=== PATIENT | female | born 1960 | race Caucasian/White ===

== ENCOUNTER 2016-08-18 09:30 | Day surgery (SDC) | payer BC ==
[~2016-08-18 09:30] MED LIST: Pre Op ABX Message 1 EACH MISC MISCELLANE ONE
--- NOTE | 2016-08-18 10:11 | XR ---
EXAMINATION TYPE: XR KUB DATE OF EXAM: 08/18/2016 10:04 AM COMPARISON: 10/15/2015 HISTORY: Left ureteral stone TECHNIQUE: One view abdominal series FINDINGS: The osseous structures are intact. The bowel gas pattern is nonspecific. Left kidney: No calcifications Right kidney: 4 calcifications with the largest measuring 8 mm. IMPRESSION: 1. Resolution of left-sided renal calculus. 2. Right-sided nephrolithiasis
[2016-08-18] MEDS ORDERED: LACTATED RINGERS 1,000 ML IV ONE (11:00)
[2016-08-18] MEDS ORDERED: LIDOCAINE 1% 20 ML VIAL (10MG/ML) FOR IV START INTRADERMA ONE (11:02)
[2016-08-18] MEDS ORDERED: SCOPOLAMINE 1.5MG/72HR PATCH TRANSDERM ONE (11:05)
[2016-08-18] MEDS ORDERED: ONDANSETRON 4 MG/2 ML VIAL IVP ONE (11:05)
[2016-08-18] MEDS ORDERED: DEXAMETHASONE SOD PHOSPHATE 10 MG/ML 1 ML VIAL IV ONE (11:05)
[2016-08-18 11:13] LABS: Basophils % (A) 1 %; CH 32.6; CHCM 35.7; Eosinophils # (A) 0.1 k/uL (0-0.7); Eosinophils % (A) 2 %; HCT 40.8 % (34.0-46.0); HDW 3.07; HGB 14.5 gm/dL (11.4-16.0); Luc # (Auto) 0.13; Luc % (Auto) 2; Lymphocytes # (A) 2.5 k/uL (1.0-4.8); Lymphocytes % (A) 43 %; MCH 32.8 pg (25.0-35.0); MCHC 35.6 g/dL (31.0-37.0); Mean Platelet Volume 7.8; Monocytes # (A) 0.4 k/uL (0-1.0); Monocytes % (A) 7 %; Neutrophils # (A) 2.7 k/uL (1.3-7.7); Neutrophils % (A) 47 %; RBC 4.44 m/uL (3.80-5.40); WBC 5.8 k/uL (3.8-10.6); WBC (Perox) 5.47
[2016-08-18 11:23] LABS: Anion Gap 11 mmol/L; Blood Urea Nitrogen 20 mg/dL (7-17); Calcium 10.2 mg/dL (8.4-10.2); Carbon Dioxide 25 mmol/L (22-30); Chloride 109 mmol/L (98-107); Glucose 88 mg/dL (74-99); Non-African American GFR(MDRD) >60 (>60 ml/min/1.73 sqM); Sodium 145 mmol/L (137-145)
[2016-08-18] MEDS ORDERED: MIDAZOLAM 2 MG/2 ML VIAL ONE (11:47)
[2016-08-18] MEDS ORDERED: LIDOCAINE 1% INJ 10MG/ML (20 ML MDV) ONE (11:47)
[2016-08-18] MEDS ORDERED: PROPOFOL 10 MG/ML 20 ML VIAL IV ONE (11:47)
[2016-08-18] MEDS ORDERED: KETOROLAC 30 MG/ML 1 ML VIAL ONE (11:47)
[2016-08-18] MEDS ORDERED: fentaNYL (PF) 50 MCG/ML 2 ML AMP ONE (11:47)
[2016-08-18] MEDS ORDERED: SUCCINYLCHOLINE CHLORIDE 100 MG/5 ML SYR IV ONE (11:47)
[2016-08-18] MEDS ORDERED: diphenhydrAMINE 50 MG/ML 1 ML VIAL ONE (11:47)
[2016-08-18] MEDS ORDERED: SODIUM CHLORIDE 0.9% 50 ML with ceFAZolin 1,000 MG IV ONE ×2 (12:01)
[2016-08-18] MEDS ORDERED: IOHEXOL 350 MG/ML 50ML BOTTLE MISCELLANE ONE ×2 (12:07)
--- NOTE | 2016-08-18 12:43 | P.OP ---
Date of Procedure: 08/18/16 Preoperative Diagnosis: Left ureteral calculi Postoperative Diagnosis: Same Procedure(s) Performed: Cystoscopy, left retrograde pyelogram, left ureteroscopy laser lithotripsy, placement of 624 double-J catheter Estimated Blood Loss (ml): 0 Pathology: other Condition: stable (Stone) Disposition: PACU Indications for Procedure: The patient is a 55-year-old female who a month ago underwent ureteroscopy due to large impacted stones at the UPJ. These are broken up into tiny pieces. She was well postoperatively. She is asymptomatic. She came 1 month postop for an ultrasound as I was concerned of possible ureteral stricture. Hydroureteronephrosis was identified. An IVP was obtained identifying a Steinstrasse midureteral fragments she comes for stone manipulation Description of Procedure: Patient brought operating suite given general endotracheal anesthesia. She's placed lithotomy position with sterile prep and drape. KUB shows faint appearance of stones almost overlying the spine in the left mid ureteral region cystoscopy Foroblique lens and 21-Armenian sheath identifies normal urethra. The bladder mucosa unremarkable. Within a cone-tipped catheter a left retrograde Performed identifying some obstruction of the mid ureter. Through the dilated ureteral orifice I passed a 7-Armenian mini ureteroscope up to the area and there is an impacted to fragment stones. With the 200 laser probe the stone was broken into tiny fragments. I then move up proximally and break up the remaining tiny fragments and basket all the fragments out. His edema where the obstruction was. I'll thus leave a double-J catheter. I will 35 wires passed through the ureteroscope into the kidney. The ureteroscope removed and then over the wires passed a 624 double-J catheter that coils in the renal pelvis and the bladder bladder strain the cystoscope was removed the patient awake and returned recovery in good condition. She'll be discharged home upon recovery and followed office in 2 weeks for stent
--- NOTE | 2016-08-18 12:53 | FL ---
EXAMINATION TYPE: FL urography retrograde DATE OF EXAM: 08/18/2016 12:42 PM COMPARISON: NONE HISTORY: Fluoroscopy time TECHNIQUE: Fluoroscopy. FINDINGS: Fluoroscopic guidance was provided of 50 seconds. IMPRESSION: As Above.
[2016-08-18 13:24] VITALS: TEMP 97
[2016-08-18 14:53] VITALS: RESP 18
[2016-08-18 14:57] VITALS: BP 128/81
[2016-08-18 15:00] VITALS: PULSE 82
== END 2016-08-18 15:00 | disposition home or self-care (01) ==
LOC: OR 09:30
PROVIDERS: ATTEND Urology
DX: N20.2 Calculus of kidney with calculus of ureter (principal); E78.5 Hyperlipidemia, unspecified; E03.9 Hypothyroidism, unspecified; F32.9 Major depressive disorder, single episode, unspecified; F39 Unspecified mood [affective] disorder; Z79.1 Long term (current) use of non-steroidal anti-inflammatories (NSAID); Z79.52 Long term (current) use of systemic steroids; Z79.891 Long term (current) use of opiate analgesic; Z79.899 Other long term (current) drug therapy; Z88.1 Allergy status to other antibiotic agents; Z91.041 Radiographic dye allergy status; Z88.8 Allergy status to other drugs, medicaments and biological substances
CPT/HCPCS: 80048; 85025; 74000; 74420; 52356; C2625; C1758; C1769; J2250; J1200; J1100; J2405; J0690; J2001; J3010; J1885; J0330; J2704; Q9967; 82365

== ENCOUNTER → 2017-01-26 | Outpatient (CLI) | payer BC ==
[2017-01-26 12:38] LABS: Basophils % (A) 1 %; CHCM 35.3; Eosinophils # (A) 0.1 k/uL (0-0.7); Eosinophils % (A) 3 %; HCT 41.9 % (34.0-46.0); HDW 2.83; HGB 14.1 gm/dL (11.4-16.0); Luc # (Auto) 0.08; Luc % (Auto) 2; Lymphocytes # (A) 1.6 k/uL (1.0-4.8); Lymphocytes % (A) 33 %; MCH 31.6 pg (25.0-35.0); MCHC 33.7 g/dL (31.0-37.0); MCV 93.9 fL (80.0-100.0); Mean Platelet Volume 7.4; Monocytes # (A) 0.3 k/uL (0-1.0); Monocytes % (A) 6 %; Neutrophils # (A) 2.7 k/uL (1.3-7.7); Neutrophils % (A) 56 %; RBC 4.47 m/uL (3.80-5.40); RDW 13.4 % (11.5-15.5); WBC 4.8 k/uL (3.8-10.6); WBC (Perox) 4.93
[2017-01-26 12:40] LABS: ALT 40 U/L (9-52); AST 21 U/L (14-36); Alkaline Phosphatase 62 U/L (38-126); Anion Gap 11 mmol/L; Blood Urea Nitrogen 12 mg/dL (7-17); Calcium 9.9 mg/dL (8.4-10.2); Carbon Dioxide 24 mmol/L (22-30); Chloride 108 mmol/L (98-107); Glucose 84 mg/dL (74-99); Non-African American GFR(MDRD) >60 (>60 ml/min/1.73 sqM); Potassium 3.8 mmol/L (3.5-5.1); Sodium 143 mmol/L (137-145); Total Bilirubin 0.5 mg/dL (0.2-1.3); Total Protein 6.8 g/dL (6.3-8.2)
[2017-01-26 12:45] LABS: Appearance,Urine Clear (Clear); Bacteria,Urine Rare /hpf; Bilirubin,Urine Negative (Negative); Glucose,Urine (UA) Negative (Negative); Ketones,Urine Negative (Negative); Leukocyte Esterase,Urine Trace (Negative); Mucus,Urine Rare /hpf; Nitrite,Urine Negative (Negative); Particle Count 2455; Protein,Urine Negative (Negative); RBC,Urine 1 /hpf (0-5); Specific Gravity,Urine 1.012 (1.001-1.035); UA Billing (MACRO vs. MICRO) MICRO; Urobilinogen,Urine <2.0 mg/dL (<2.0); WBC,Urine 5 /hpf (0-5)
== END | disposition home or self-care (01) ==
LOC: LABPAT 11:53
PROVIDERS: ATTEND Urology
DX: Z01.812 Encounter for preprocedural laboratory examination (principal); R35.0 Frequency of micturition; R31.29 Other microscopic hematuria; E05.90 Thyrotoxicosis, unspecified without thyrotoxic crisis or storm; N39.0 Urinary tract infection, site not specified; N20.0 Calculus of kidney
CPT/HCPCS: 80053; 81001; 85025; 86850; 86900; 86901; 87086

== ENCOUNTER 2017-02-01 10:58 | Observation (INO) | payer BC ==
[2017-01-27 09:39] VITALS: BMI 23.8
[~2017-02-01 10:58] MED LIST changes: +DEXAMETHASONE SOD PHOSPHATE 10 MG/ML 1 ML VIAL IV ONE; +GENTAMICIN IN NACL ISO-OSM PMX 80 MG in SALINE 1 100ML.BAG IVPB ONE; +MIDAZOLAM 2 MG/2 ML VIAL IV PRN; +ONDANSETRON 4 MG/2 ML VIAL IVP ONE; +SCOPOLAMINE 1.5MG/72HR PATCH TRANSDERM ONE
--- NOTE | 2017-02-01 11:23 | XR ---
Abdomen HISTORY: Preop lithotripsy, kidney stones Frontal view of the abdomen correlated to prior 08/18/2016 Multiple right-sided kidney stones are stable. Bone mineralization is reduced. No bowel obstruction o r pneumoperitoneum. Bowel gas may obscure detail within the left kidney. IMPRESSION: Stable right nephrolithiasis.
[2017-02-01] MEDS: LACTATED RINGERS 1,000 ML IV SCH ×2 (11:27→11:54)
[2017-02-01] MEDS ORDERED: LIDOCAINE 1% 20 ML VIAL (10MG/ML) FOR IV START INTRADERMA ONE (11:28)
[2017-02-01] MEDS ORDERED: LIDOCAINE 1% INJ 10MG/ML (20 ML MDV) ONE (11:56)
[2017-02-01] MEDS ORDERED: SUCCINYLCHOLINE CHLORIDE 100 MG/5 ML SYR IV ONE (11:56)
[2017-02-01] MEDS ORDERED: NEOSTIGMINE 1 MG/ML 10 ML VIAL ONE (11:56)
[2017-02-01] MEDS ORDERED: MIDAZOLAM 2 MG/2 ML VIAL ONE (11:56)
[2017-02-01] MEDS ORDERED: HYDROmorphone (PF) 1 MG/ML ONE (11:56)
[2017-02-01] MEDS ORDERED: fentaNYL (PF) 50 MCG/ML 2 ML AMP ONE (11:56)
[2017-02-01] MEDS ORDERED: PROPOFOL 10 MG/ML 20 ML VIAL IV ONE (11:56)
[2017-02-01] MEDS ORDERED: ROCURONIUM BROMIDE 10 MG/ML 10 ML VIAL IV ONE (11:56)
[2017-02-01] MEDS ORDERED: GLYCOPYRROLATE 0.2 MG/ML 2 ML VIAL ONE (11:56)
[2017-02-01] MEDS ORDERED: MAG HYDROX/AL HYDROX/SIMETH 30 ML CUP PO PRN (14:04)
[2017-02-01] MEDS ORDERED: ACETAMINOPHEN TAB 325 MG TAB PO PRN (14:04)
[2017-02-01] MEDS ORDERED: ONDANSETRON 4 MG/2 ML VIAL IVP PRN (14:06)
[2017-02-01] MEDS ORDERED: NALOXONE 0.4 MG/ML 1 ML VIAL IV PRN (14:06)
[2017-02-01] MEDS ORDERED: HYDROmorphone PCA 5 MG/25 ML SYRINGE IV PRN (14:06)
--- NOTE | 2017-02-01 14:14 | P.OP ---
Preoperative Diagnosis: Painful right renal calculi Postoperative Diagnosis: Procedure(s) Performed: Same Implants: Anesthesia: GETA Surgeon: Nirmal Lau Estimated Blood Loss (ml): 50 Pathology: other (Stone) Condition: stable Disposition: PACU Indications for Procedure: The patient is a 56-year-old female with active kidney stone disease despite medical therapy. She is stones in the right kidney that are causing her pain and an she wasn't liberated of these with shockwave lithotripsy. We discussed ureteroscopy versus percutaneous nephrostolithotomy. I felt the latter would be more appropriate given the volume of stones. Operative Findings: Description of Procedure: Patient is brought to the operating suite and given general anesthesia. She's placed in a frog position with a sterile prep and drape. Cystoscopy Foroblique lens and 22-Guinean sheath identifies a normal urethra. The right ureteral orifice is identified and intubated with a 5-Guinean occluding balloon catheter. It is secured to a urethral Bernstein The patient's placed in prone position. Dr. Truong of radiology enters the procedure. After doing a retrograde decide to go after middle pole calyx. Pass to the middle pole calyx and dilated to 30-Guinean. I clear out the clot. I remove several small stones from inside of the kidney. The larger stones on the lower pole calyx. With great difficulty I'm able to finally access the lower pole calyx. I see one stone and break it up and remove it. There are 3 other stones. I see a second stone but I'm unable to access it due to angulation. There are 2 other calcifications that may be behind the renal papilla. I have Dr. Truong attempt to access directly the stones but were unable to do so. I elected terminate the procedure. A 20-Guinean reentry nephrostomy tube was placed so that I can look in the collecting system later this week or early next week for a secondary nephroscopy and possible nephrosto lithotomy. Blood loss is 50 mL.
[2017-02-01] MEDS: HYDROmorphone 1 MG/ML 1 ML SYRINGE IVP PRN ×4 (14:20→14:39)
[2017-02-01] MEDS: KETOROLAC 30 MG/ML 1 ML VIAL IVP SCH ×2 (14:26→23:16)
--- NOTE | 2017-02-01 14:29 | FL ---
EXAMINATION TYPE: FL Perc Nephrostomy New Access DATE OF EXAM: 02/01/2017 COMPARISON: NONE HISTORY: Right-sided kidney stones PROCEDURE: Maximal barrier technique was utilized. The skin overlying the right kidney was localized using fluo roscopy and the overlying skin prepped and draped. Lidocaine used for local anesthesia. Skin shelbi w as made with a scalpel. Access was gained under fluoroscopy, following placement of a ureteral occlu alex balloon by the referring clinician and instillation of air in the renal collecting system with a 21-gauge needle to the kidney. A suitable posterior calyx was chosen. A 0.018 inch wire was Combined Effort. The access site was dilated and subsequently a sheath was advanced into the renal pelvis follow ing dilation with balloon along the tract. The patient underwent nephrolithotomy by the referring maya jeter. I was called back to the operating room for a new access. Using similar technique, attempts w ere made to access the lower pole renal calcification. 4 passes were performed without access to the collecting system and the exam was aborted. The patient remained in stable condition without complica tion. The patient was discharged to observation. IMPRESSION: STATUS POST NEPHROSTOMY PLACEMENT FOR NEPHROLITHOTOMY WITH FLUOROSCOPIC GUIDANCE. THIS PROCEDURE PER FORMED BY THE UNDERSIGNED.
[2017-02-01] MEDS: DEXTROSE 5%-0.45% NACL 1,000 ML IV SCH (16:22)
[2017-02-01] MEDS: diphenhydrAMINE 50 MG/ML 1 ML VIAL IVP PRN (18:53)
[2017-02-01] MEDS ORDERED: NON-FORMULARY DRUG (Simvastatin [Simvastatin] 20 MG) PO SCH (21:00)
[2017-02-01] MEDS ORDERED: POTASSIUM CITRATE 10 MEQ TABLET.ER PO SCH (21:00)
[2017-02-02] MEDS: KETOROLAC 30 MG/ML 1 ML VIAL IVP SCH ×2 (06:00→17:18)
[2017-02-02] MEDS: diphenhydrAMINE 50 MG/ML 1 ML VIAL IVP PRN (06:05)
[2017-02-02] MEDS ORDERED: LEVOTHYROXINE 100 MCG TAB PO SCH (06:30)
[2017-02-02] MEDS: DEXTROSE 5%-0.45% NACL 1,000 ML IV SCH (08:47)
[2017-02-02] MEDS ORDERED: PARoxetine 20 MG TAB PO SCH (09:00)
[2017-02-02] MEDS ORDERED: MORPHINE SULFATE 2 MG/ML SYRINGE IVP PRN (10:26)
--- NOTE | 2017-02-02 10:30 | P.PN ---
Subjective The patient is status post right percutaneous nephrostolithotomy. She did well overnight. She is a little groggy from the pain medicine. We'll discontinue the BOOK CRITIC. She'll ambulate. If she feels well she can be discharged home later today. She needs a secondary nephroscopy which I will arrange for on Tuesday. Objective - Vital Signs Vital signs: Vital Signs Temp 99 F 02/02/17 07:00 Pulse 98 02/02/17 07:00 Resp 16 02/02/17 07:00 BP 125/70 02/02/17 07:00 Pulse Ox 98 02/02/17 08:31 Intake & Output 02/01/17 02/02/17 02/02/17 18:59 06:59 18:59 Intake Total 950 580 240 Output Total 360 700 Balance 590 -120 240 Weight 58.967 kg Intake: IV 950 Oral 580 240 Output: Drainage 380 Right flank 380 Urine 350 320 Uretheral (Bernstein) 70 Estimated Blood Loss 10 Other: Voiding Method Indwelling Catheter Indwelling Catheter
--- NOTE | 2017-02-02 10:32 | P.DS ---
Providers Date of admission: 02/01/17 19:22 Attending physician: Nirmal Lau Primary care physician: Michael [facility] Course: The patient underwent a right percutaneous nephrostolithotomy 02-01-17. She did well overnight. She is afebrile stable vital signs. Her activity is limited. Her diet will be regular. She will have arrangements for her procedure. This will be a secondary nephroscopy on 02/04/2017 she'll be discharged with a nephrostomy tube she'll be given a prescription of Pierce. She will have limited activity and a regular diet. I'll make arrangements for the follow-up. Patient Condition at Discharge: Good Plan - Discharge Summary New Discharge Prescriptions: New HYDROcodone/APAP 5-325MG [Pierce 5-325] 1 tab PO Q4HR PRN #20 tab PRN Reason: Pain Control No Action Simvastatin [Simvastatin] 20 mg PO HS PARoxetine [Paxil] 20 mg PO QAM Potassium Citrate [Potassium Citrate ER] 10 meq PO HS Melatonin 5 mg PO HS PRN PRN Reason: Insomnia Ibuprofen [Motrin] 400 mg PO Q8HR PRN PRN Reason: Pain Acetaminophen-Codeine 300-30mg [Tylenol #3] 1 tab PO Q4H PRN PRN Reason: Moderate To Severe Pain Acetaminophen [Tylenol] 650 mg PO Q6H PRN PRN Reason: Mild To Moderate Pain Levothyroxine Sodium [Synthroid] 100 mcg PO DAILY Discharge Medication List PARoxetine [Paxil] 20 mg PO QAM 01/22/15 [History] Simvastatin [Simvastatin] 20 mg PO HS 01/22/15 [History] Ibuprofen [Motrin] 400 mg PO Q8HR PRN 01/27/17 [History] Melatonin 5 mg PO HS PRN 01/27/17 [History] Potassium Citrate [Potassium Citrate ER] 10 meq PO HS 01/27/17 [History] Acetaminophen [Tylenol] 650 mg PO Q6H PRN 02/01/17 [History] Acetaminophen-Codeine 300-30mg [Tylenol #3] 1 tab PO Q4H PRN 02/01/17 [History] Levothyroxine Sodium [Synthroid] 100 mcg PO DAILY 02/01/17 [History] HYDROcodone/APAP 5-325MG [Pierce 5-325] 1 tab PO Q4HR PRN #20 tab 02/02/17 [Rx] Activity/Diet/Wound Care/Special Instructions: Home with nephrostomy tube. I'll make arrangements for a secondary nephroscopy here probably on Tuesday. Discharge Disposition: HOME SELF-CARE
[2017-02-02] MEDS: HYDROcodone/APAP 5-325MG 1 EACH TAB PO PRN ×2 (12:54→16:32)
[2017-02-02 16:21] VITALS: BP 124/77; PULSE 77; RESP 20; TEMP 98.4
--- NOTE | 2017-02-08 17:25 | CDI ---
Documentation Clarification OP Dear Dr Lau, Please provide clarification regarding the size of the renal stones that you were able to break up and remove. Please respond to this query by dictating an addendum to your procedure note. Thank you for your assistance Katalina Goldsmith If you have any questions, please contact [employer], Desiree Mtz at . [facility]
--- NOTE | 2017-02-22 19:36 | CDI ---
Documentation Clarification OP Dear Dr Lau, Please provide clarification regarding the size of the renal stones (Up to 2cm, or over 2cm) that you were able to break up and remove. Please respond to this query by dictating an addendum to your procedure note. Thank you for your assistance Katalina Goldsmith If you have any questions, please contact [employer], Desiree Mtz at [phone]. [facility]
--- NOTE | 2017-03-01 19:56 | CDI ---
Dear Dr Lau, I am unable to code this procedure without the size of the stones that were removed. Please provide clarification regarding the size of the renal stones ( Up to 2cm, or over 2cm) that you were able to break up and remove. This is the THIRD QUERY for the size of the renal stones. Please respond to this query by dictating an addendum to your procedure note. Thank you for your assistance Katalina Goldsmith If you have any questions, please contact Wares Sorter, Desiree Mtz at . [facility]
--- NOTE | 2017-04-04 21:46 | P.PN ---
Progress Note - Text addendum: This ptient came for pcnl right 02/02/2017 for 2 cm worth of renal stones too voluminous for eswl
== END 2017-02-02 17:42 | disposition home or self-care (01) ==
LOC: OR 10:58 → 6PED 13:35 → OR 19:22
PROVIDERS: ADMIT Urology; ATTEND Urology
DX: N20.0 Calculus of kidney (principal); E78.5 Hyperlipidemia, unspecified; E03.9 Hypothyroidism, unspecified; F32.9 Major depressive disorder, single episode, unspecified; Z88.0 Allergy status to penicillin; Z79.899 Other long term (current) drug therapy
CPT/HCPCS: 94760 ×2; 94762; 82365; 74000; 50432; 50080; G0378 ×2; C1769 ×6; C2628; C1894; J1580; J2250; J1200 ×2; J1100; J2710; J2405; J2001; J3010; J1885 ×2; J1170 ×2; J0330; J2704; 86850; 86900; 86901

== ENCOUNTER 2017-02-04 07:03 | Inpatient (IN) | payer BC ==
[2017-02-03 12:17] VITALS: BMI 23.8
[~2017-02-04 07:03] MED LIST changes: +LACTATED RINGERS 1,000 ML IV SCH; +LIDOCAINE 1% 20 ML VIAL (10MG/ML) FOR IV START INTRADERMA PRN; -Pre Op ABX Message 1 EACH MISC MISCELLANE ONE
[2017-02-04] MEDS ORDERED: ePHEDrine SULFATE/0.9% NACL/PF 50 MG/5 ML SYRINGE IV ONE (07:25)
[2017-02-04] MEDS ORDERED: SUCCINYLCHOLINE CHLORIDE 100 MG/5 ML SYR IV ONE (07:25)
[2017-02-04] MEDS ORDERED: LIDOCAINE 1% INJ 10MG/ML (20 ML MDV) ONE (07:25)
[2017-02-04] MEDS ORDERED: PROPOFOL 10 MG/ML 20 ML VIAL IV ONE (07:25)
[2017-02-04] MEDS ORDERED: fentaNYL (PF) 50 MCG/ML 2 ML AMP ONE (07:25)
[2017-02-04] MEDS ORDERED: MIDAZOLAM 2 MG/2 ML VIAL ONE (07:25)
[2017-02-04] MEDS ORDERED: GLYCOPYRROLATE 0.2 MG/ML 2 ML VIAL ONE (07:25)
[2017-02-04] MEDS ORDERED: ROCURONIUM BROMIDE 10 MG/ML 10 ML VIAL IV ONE (07:25)
[2017-02-04] MEDS ORDERED: NEOSTIGMINE 1 MG/ML 10 ML VIAL ONE (07:25)
[2017-02-04] MEDS ORDERED: IOHEXOL 300 MG/ML 50 ML BOTTLE INJ ONE (07:43)
--- NOTE | 2017-02-04 08:35 | P.OP ---
Date of Procedure: 02/04/17 Preoperative Diagnosis: Right renal calculi Postoperative Diagnosis: Same Procedure(s) Performed: Secondary nephroscopy, secondary nephrostolithotomy laser, placement of antegrade 6 x 26 double-J catheter Implants: Anesthesia: JAYLANA Surgeon: Nirmal Lau Estimated Blood Loss (ml): 50 Pathology: other (Stone) Condition: stable Disposition: PACU Indications for Procedure: The patient is 56. She has painful right renal calculi. She underwent a percutaneous nephrostolithotomy earlier this week. There are some small retained stones that I wanted do a second look nephroscopy Operative Findings: Description of Procedure: The patient is brought to the operating suite. She is given a general endotracheal anesthesia. A Bernstein cath placed sterilely. She's placed in a prone position with care to airways and extremities on the operating table. She is prepped and draped sterilely. Through the nephrostomy tube I passed an 035 wire into the distal ureter. I removed the nephrostomy tube and passed the flexible nephroscope into the collecting system. I go to the lower pole calyces where the stone fragments are remaining. I see the 2 calyces of stone. There are too large to pull out of the impacted infundibula. With a 3 and 65 laser probe I fracture the stone into tiny pieces and basket or flush them out of the calyces. At the end of the procedure there no significant remaining fragments. There is one stone that is behind the renal papilla that I cannot access. She has some bleeding and because of the fragments that she may have to pass I'll place an antegrade stent. Over the wire and a 6 x 26 stent is passed into the bladder and coils in the renal pelvis. Wires removed. The wound is dressed the patient's awake and returned recovery in good condition. She'll be discharged home upon recovery and found the office next week for stent removal. End of dictation
--- NOTE | 2017-02-04 09:08 | FL ---
EXAMINATION TYPE: FL Perc Nephro Tube Change DATE OF EXAM: 02/04/2017 COMPARISON: NONE HISTORY: Lower procedure TECHNIQUE: Fluoroscopy. FINDINGS: Fluoroscopic guidance was provided with 131 seconds of fluoroscopy provided. IMPRESSION: As Above.
[2017-02-04] MEDS ORDERED: LACTATED RINGERS 1,000 ML IV ONE ×4 (09:10→13:55)
[2017-02-04] MEDS ORDERED: LEVALBUTEROL NEB 1.25 MG/3 ML AMP INHALATION ONE (09:12)
[2017-02-04] MEDS: HYDROmorphone 1 MG/ML 1 ML SYRINGE IVP PRN ×4 (09:19→15:01)
--- NOTE | 2017-02-04 09:37 | XR ---
EXAMINATION TYPE: XR chest 1V portable DATE OF EXAM: 02/04/2017 COMPARISON: 01/22/2015. HISTORY: Postop percutaneous nephrostomy. TECHNIQUE: Single frontal view of the chest is obtained. FINDINGS: There is complete opacification of the right hemithorax with mediastinal shift to the left . Mass effect excludes right lung atelectasis. Right pleural effusion or large hemothorax are conside rations. Partially obscured cardiac silhouette is not enlarged. Left lung remains clear although there is blun ting of the left costophrenic angle, likely relating to a trace pleural effusion. Patient's chin obsc ures the lung apices. Osseous structures appear intact. Right nephrostomy tube is partially visualize d. Prominent loop of bowel is seen within the upper abdomen, likely postop ileus. IMPRESSION: 1. Interval complete opacification of the right hemithorax with leftward mediastinal shift. Findings are suspicious for space occupying large pleural effusion or hemothorax. 2. Probable trace left pleural effusion, postop ileus, and partially visualized right nephrostomy tub e.
--- NOTE | 2017-02-04 10:34 | US ---
EXAMINATION TYPE: US chest DATE OF EXAM: 02/04/2017 COMPARISON: NONE CLINICAL HISTORY: R/O HYDROTHORAX RIGHT. EXAM MEASUREMENTS: Right lateral chest scanned in recovery post surgery in the presence of Dr. Rodriguez. Unable to scan post erior due to bandaging. Dr Rodriguez wanted documentation of fluid. IMPRESSIONS: Markedly limited exam. Technologist noted that due to bandaging she could not obtain acc ess to the majority of the right chest.
[2017-02-04] MEDS ORDERED: MORPHINE SULFATE 2 MG/ML SYRINGE IV PRN (12:02)
[2017-02-04] MEDS ORDERED: ONDANSETRON 4 MG/2 ML VIAL IVP PRN (12:04)
--- NOTE | 2017-02-04 12:07 | P.PN ---
Progress Note - Text Postoperatively the patient developed shortness of breath and tachycardia. Her O2 sats were low. A chest x-ray was a obtained by anesthesia identifying a large right hydrothorax. I suspect that the percutaneous nephrostomy tube had neck the pleura when it was placed on Tuesday. How much fluid she had at that point time is indeterminate. However today I suspect more fluid was introduced into the pleura during the procedure to remove the remaining stone. She needs a chest tube to drain the fluid. She does have a double-J catheter in. Thoracic surgery will place this tube this morning. Be admitted the hospital until this problem has resolved. The double-J catheter remain until he also has resolved.
[2017-02-04] MEDS ORDERED: MIDAZOLAM 2 MG/2 ML VIAL IVP ONE ×2 (12:32→13:09)
[2017-02-04] MEDS: fentaNYL (PF) 50 MCG/ML 2 ML AMP IVP ONE ×2 (12:32→13:09)
--- NOTE | 2017-02-04 13:07 | XR ---
EXAMINATION TYPE: XR chest 1V portable DATE OF EXAM: 02/04/2017 COMPARISON: 02/04/2017 at 9:15 AM HISTORY: Status post right thoracostomy tube placement. TECHNIQUE: Single frontal view of the chest is obtained. FINDINGS: There is redemonstration of complete opacification of the right hemithorax with mediastina l shift to the left. Thoracostomy tube has been inserted in the interim with its distal tip overlying the mid right peripheral lung. Probable trace left pleural effusion is seen as blunting of the left costophrenic angle is present. Remainder the left lung is clear. There is again partial visualization of a right-sided nephrostomy tube. IMPRESSION: Redemonstration of complete opacification of the right hemithorax with mediastinal shift to the left. Sonography is limited in the evaluation of hydropneumothorax.
--- NOTE | 2017-02-04 13:36 | XR ---
EXAMINATION TYPE: XR chest 1V portable DATE OF EXAM: 02/04/2017 HISTORY: Right-sided chest tube placement COMPARISON: 02/04/2017 TECHNIQUE: Single view of the chest is submitted. FINDINGS: Right basilar chest tube is in place. Dramatic improvement in opacification of the right hemithorax w ith significant diminution in right-sided pleural fluid. Persistent pleural fluid and right basilar a telectasis and/or infiltrate. Mild left basilar atelectasis. No sizable pneumothorax. Cardiomediastinal silhouette is unremarkable. IMPRESSION: 1. Right basilar chest tube with dramatic improvement in right-sided pleural effusion and volume los s.
[2017-02-04 13:41] LABS: CH 32.8; CHCM 34.4; HCT 31.9 % (34.0-46.0); HDW 2.87; MCH 33.3 pg (25.0-35.0); MCHC 34.7 g/dL (31.0-37.0); MCV 95.8 fL (80.0-100.0); Mean Platelet Volume 8.4; RBC 3.33 m/uL (3.80-5.40); RDW 13.1 % (11.5-15.5); WBC 6.7 k/uL (3.8-10.6)
[2017-02-04 13:50] LABS: HGB 11.1 gm/dL (11.4-16.0)
[2017-02-04] MEDS: HYDROcodone/APAP 5-325MG 1 EACH TAB PO PRN ×2 (17:29→21:42)
[2017-02-04] MEDS: LEVOFLOXACIN 500 MG TAB PO SCH (17:29)
[2017-02-04] MEDS: DEXTROSE 5%-0.45% NACL 1,000 ML IV SCH (17:30)
[2017-02-04] MEDS ORDERED: NON-FORMULARY DRUG (Simvastatin [Simvastatin] 20 MG) PO SCH (21:00)
[2017-02-04] MEDS: ACETAMINOPHEN TAB 325 MG TAB PO PRN (22:13)
[2017-02-05] MEDS: HYDROcodone/APAP 5-325MG 1 EACH TAB PO PRN ×6 (01:59→23:10)
[2017-02-05] MEDS: DEXTROSE 5%-0.45% NACL 1,000 ML IV SCH ×2 (04:03→05:48)
[2017-02-05 05:32] VITALS: RESP 18
[2017-02-05] MEDS: ACETAMINOPHEN TAB 325 MG TAB PO PRN (05:46)
[2017-02-05] MEDS: LEVOTHYROXINE 100 MCG TAB PO SCH (05:48)
--- NOTE | 2017-02-05 07:24 | XR ---
EXAMINATION TYPE: XR chest 1V portable DATE OF EXAM: 02/05/2017 COMPARISON: NONE HISTORY: Chest tube placement TECHNIQUE: Single frontal view of the chest is obtained. FINDINGS: There is right-sided consolidation and small effusion with chest tube tiny left effusion a lso seen. Very tiny right apical pneumothorax measuring less than 5%. Heart size is within normal ahuja its. IMPRESSION: 1. Bilateral small effusion and basilar infiltrate with tiny right apical pneumothorax measuring less than 5%.
[2017-02-05] MEDS: PARoxetine 20 MG TAB PO SCH (08:24)
--- NOTE | 2017-02-05 10:55 | P.PN ---
Subjective Principal diagnosis: Right renal calculi, postoperative right hydrothorax, hyperlipidemia, hypothyroid, history of depression, history of bronchitis, and a history of migraine headaches. This is a 56-year-old female patient who was admitted for treatment of right renal calculi by Dr. Lyles. Patient underwent a secondary nephroscopy, secondary nephrolithotomy laser, and placement of antegrade 6 x 26 double-J catheter. subsequently the patient developed a right hydrothorax postoperatively and a right thoracostomy tube was placed by Dr. Shin. S/P day #1 placement of right thoracostomy tube. Patient is sitting up to bedside, no acute distress. Her sister is present at the bedside. Complaining of pain 4 out of 10 on the pain scale to her chest tube insertion site. She is complaining of itching all over her body. Denies rash. Objective - Vital Signs Vital signs: Vital Signs Temp 97.3 F L 02/05/17 08:26 Pulse 87 02/05/17 08:26 Resp 18 02/05/17 08:26 BP 119/67 02/05/17 08:26 Pulse Ox 99 02/05/17 08:26 Intake & Output 02/04/17 02/05/17 02/05/17 18:59 06:59 18:59 Intake Total 2300 375 75 Output Total 1050 1240 15 Balance 1250 -865 60 Weight 63.5 kg Intake: IV 2300 375 75 Dextrose 5%-0.45% NaCl 1, 375 75 000 ml @ 75 mls/hr IV . [id number] [facility] Rx#:[id number] Output: Chest Tube Drainage 140 15 Chest Tube Right Lateral 140 15 Chest Urine 1000 1100 Uretheral (Bernstein) 1100 Estimated Blood Loss 50 Other: Voiding Method Indwelling Catheter Indwelling Catheter Indwelling Catheter # Voids 0 - Constitutional General appearance: Present: cooperative, no acute distress, thin - EENT Eyes: Present: PERRLA, normal appearance ENT: Present: hearing grossly normal - Neck Details: No JVD present, no lymphadenopathy. - Respiratory Details: Essentially clear throughout, diminished bilateral bases. Respirations are symmetrical and unlabored. Oxygen saturations are 97% on 3 L nasal cannula. Right chest tube remains in place, no air leak present. 0 drainage in the last 8 hours. 1200 mL output in 24 hours of thin serosanguineous drainage. Remains to low continuous wall suction -20 cm. - Cardiovascular Details: Regular rhythm and rate. S1 and S2 present, negative for S3, gallop or murmur. Remote telemetry showing normal sinus rhythm heart rate 78. Sequential compression devices in place to bilateral lower extremities. - Gastrointestinal Gastrointestinal Comment(s): Abdomen is soft, nontender and nondistended. Positive bowel sounds to all 4 abdominal quadrants. Passing flatus. No guarding, no organomegaly. - Genitourinary Genitourinary Comment(s): Clear malik urine, adequate urine output. Bernstein catheter for accurate I&O. - Integumentary Integumentary Comment(s): No cyanosis, no rash. Integumentary: Present: normal, normal turgor - Neurologic Neurologic Comment(s): No focal deficits. Neurologic: Present: CNII-XII intact - Musculoskeletal Musculoskeletal: Present: strength equal bilaterally - Psychiatric Psychiatric: Present: A&O x's 3, appropriate affect, intact judgment & insight - Allied health notes Allied health notes reviewed: nursing - Labs CBC & Chem 7: 02/04/17 13:28 Labs: Abnormal Lab Results - Last 24 Hours (Table) 02/04/17 Range/Units 13:28 RBC 3.33 L (3.80-5.40) m/uL Hgb 11.1 L D (11.4-16.0) gm/dL Hct 31.9 L (34.0-46.0) % - Imaging and Cardiology Chest x-ray: report reviewed, image reviewed Assessment and Plan (1) History of depression Status: Acute (2) Hypothyroid Status: Acute (3) Hyperlipidemia Status: Acute (4) History of bronchitis Status: Acute (5) Renal calculus, right Status: Acute Plan: 1. Her right chest tube will be removed today. Repeat chest x-ray post chest tube removal. 2. Encourage use of her incentive spirometry every hour while awake. 3. DVT and GI prophylaxis. 4. Medical management recommendations per Dr. Lau. 5. Further recommendations as patient progresses. Time with Patient: Greater than 30
--- NOTE | 2017-02-05 11:52 | P.PN ---
Subjective Principal diagnosis: POD #1, S/P Right PCNL. The patient states that she is comfortable at rest, but experiences increased discomfort with deep respirations or movement. Objective - Vital Signs Vital signs: Vital Signs Temp 97.3 F L 02/05/17 08:26 Pulse 87 02/05/17 08:26 Resp 18 02/05/17 08:26 BP 119/67 02/05/17 08:26 Pulse Ox 99 02/05/17 08:26 Intake & Output 02/04/17 02/05/17 02/05/17 18:59 06:59 18:59 Intake Total 2300 375 75 Output Total 1050 1240 715 Balance 1250 -865 -640 Weight 63.5 kg Intake: IV 2300 375 75 Dextrose 5%-0.45% NaCl 1, 375 75 000 ml @ 75 mls/hr IV . [id number] [facility] Rx#:[id number] Output: Chest Tube Drainage 140 15 Chest Tube Right Lateral 140 15 Chest Urine 1000 1100 700 Uretheral (Bernstein) 1100 700 Estimated Blood Loss 50 Other: Voiding Method Indwelling Catheter Indwelling Catheter Indwelling Catheter # Voids 0 - Constitutional General appearance: Present: cooperative, no acute distress - Gastrointestinal Gastrointestinal Comment(s): Nephrostomy site dressing intact. General gastrointestinal: Present: soft. Absent: distended, tenderness - Psychiatric Psychiatric: Present: A&O x's 3, appropriate affect, intact judgment & insight - Labs CBC & Chem 7: 02/04/17 13:28 Labs: Abnormal Lab Results - Last 24 Hours (Table) 02/04/17 Range/Units 13:28 RBC 3.33 L (3.80-5.40) m/uL Hgb 11.1 L D (11.4-16.0) gm/dL Hct 31.9 L (34.0-46.0) % Assessment and Plan Plan: The patient was febrile overnight but is currently afebrile. I suspect the fever is due to atelectasis. The Bernstein catheter will be removed, as the urine is clear. She was advised to increase ambulation.
--- NOTE | 2017-02-05 12:12 | P.GSCN ---
<Zachary Tate - Last Filed: 02/05/17 11:51> History of Present Illness Consult date: 02/04/17 Reason for Consult: Right hydrothorax Requesting physician: Nirmal Lau History of present illness: This a 56-year-old female patient who is followed by Dr. Michael Solorzano an outpatient basis. She is a past medical history of right renal calculi, hyperlipidemia, hypothyroidism, history of depression, migraine headaches and history of bronchitis. On 02/01/2017 the patient came into [facility] and underwent an outpatient percutaneous nephrolithotomy performed by Dr. Lau. Subsequently she came into the hospital today and underwent a secondary nephroscopy, secondary nephrolithotomy laser, placement of antegrade 6 x 26 double-J catheter performed by Dr. Lau. Postoperatively the patient developed some shortness of breath and tachycardia. Subsequently a chest x-ray was completed and demonstrated a large right hydrothorax. Dr. Shin from cardiothoracic surgery was asked to see the patient for placement of right thoracostomy tube. Review of Systems 14 point review of systems was completed and was negative except for as mentioned in HPI. Past Medical History Past Medical History: Hyperlipidemia, Liver Disease, Respiratory Disorder ( History of bronchitis), Thyroid Disorder (Hypothyroid) Additional Past Medical History / Comment(s): KIDNEY STONES, FATTY LIVER, HISTORY OF MIGRAINE HEADACHES. History of Any Multi-Drug Resistant Organisms: None Reported Past Surgical History: Hysterectomy, Tonsillectomy Additional Past Surgical History / Comment(s): RIGHT OOPHORECTOMY, MULTIPLE LITHOTRIPSY'S. 02/01/2017 Nephrostolithotomy w/nephrostomy tube insertion Past Anesthesia/Blood Transfusion Reactions: Motion Sickness, Postoperative Nausea & Vomiting (PONV) Past Psychological History: Depression (Takes Paxil at home.) Smoking Status: Never smoker Past Alcohol Use History: Occasional Past Drug Use History: None Reported - Past Family History Sister(s) Family Medical History: Cancer (1 sister from a brain tumor, 1 sister is in remission from breast cancer.) Additional Family Medical History / Comment(s): 2 sisters and 1 brother with history of EtOH. Mother Family Medical History: Cancer (History of breast cancer.), Coronary Artery Disease (CAD) (Her mother underwent a coronary artery bypass grafting surgery and at age 58.) Father Family Medical History: Coronary Artery Disease (CAD) (Father at age 52.) Brother(s) Additional Family Medical History / Comment(s): Brother had a history of depression, EtOH and drug abuse and committed suicide at a young age. Medications and Allergies Home Medications Medication Instructions Recorded Confirmed Type PARoxetine [Paxil] 20 mg PO QAM 01/22/15 02/04/17 History Simvastatin [Simvastatin] 20 mg PO HS 01/22/15 02/04/17 History Melatonin 5 mg PO HS PRN 01/27/17 02/04/17 History Potassium Citrate [Potassium 10 meq PO HS 01/27/17 02/04/17 History Citrate ER] Levothyroxine Sodium [Synthroid] 100 mcg PO DAILY 02/01/17 02/04/17 History Allergies Allergy/AdvReac Type Severity Reaction Status Date / Time amoxicillin Allergy Rash/Hives Verified 02/04/17 16:49 iodine Allergy Rash/Hives Verified 02/04/17 16:49 atorvastatin calcium AdvReac ACHY Verified 02/04/17 16:49 [From Lipitor] MUSCLES. Surgical - Exam Vital Signs Temp Pulse Resp BP Pulse Ox 98.1 F 83 16 186/69 98 02/04/17 07:10 02/04/17 07:10 02/04/17 07:10 02/04/17 07:10 02/04/17 07:10 - General well developed, well nourished, no distress, moderate pain - Eyes PERRL, normal ocular movement - ENT normal pinna, normal nares, normal mucosa, no congestion - Neck No JVD present, no lymphadenopathy. no masses, no bruits, trachea midline, no venous distension - Respiratory Lungs sounds are clear throughout, diminished her right lower lobe. Respirations are symmetrical and unlabored. She has a right thoracostomy tube and placed draining thin serosanguineous drainage. 1200 mL evacuated with chest tube placement. Her chest tube is too low continuous wall suction -20 cm. Oxygen saturation are 100% on 10 L VENTI mask. - Cardiovascular Regular rhythm and tachycardic rate. S1 and S2 present, need for S3, gallop or murmur. Bedside telemetry showing sinus tachycardia heart rate 112. No edema present. - Abdomen Soft, nontender and nondistended. Active bowel sounds 4 abdominal quadrants. No guarding, no organomegaly. - Genitourinary Adequate urine output. Clear malik urine. Bernstein catheter for accurate I&O. - Rectum Deferred - Integumentary There is a dressing clean and dry and intact to her right flank. Scant serosanguineous drainage to her dressing. no rash, no growths, no abnormal pigmentation - Neurologic She is sedated with Versed and fentanyl at this time. She is moving all 4 extremities appropriately. - Psychiatric oriented to time, oriented to person, oriented to place, speech is normal, memory intact, other (She is alert and orientated 3 prior to sedation.) Results - Labs 02/04/17 13:28 Abnormal Lab Results - Last 24 Hours (Table) 02/04/17 Range/Units 13:28 RBC 3.33 L (3.80-5.40) m/uL Hgb 11.1 L D (11.4-16.0) gm/dL Hct 31.9 L (34.0-46.0) % - Imaging Chest x-ray: report reviewed, image reviewed Assessment and Plan (1) History of depression Status: Acute (2) Hypothyroid Status: Acute (3) Hyperlipidemia Status: Acute (4) History of bronchitis Status: Acute (5) Renal calculus, right Status: Acute Plan: The patient was seen and examined with Dr. Shin. Chart and diagnostics were reviewed. A right thoracostomy tube will be placed by Dr. Shin, for a right hydrothorax. Her chest tube be placed to low continuous wall suction -20 cm. Incentive spirometry will be ordered every hour while awake. DVT and GI prophylaxis in place. Sequential compression devices in place to bilateral lower extremities. Medical management per Dr. Lau's recommendations. Thank you Dr. Mauricio for this consult and we look forward to working with you in the care of your patient. Time with Patient: Greater than 30 <Miguel Shin - Last Filed: 02/09/17 10:34> Surgical - Exam Vital Signs Temp Pulse Resp BP Pulse Ox 98.1 F 83 16 186/69 98 02/04/17 07:10 02/04/17 07:10 02/04/17 07:10 02/04/17 07:10 02/04/17 07:10 Results - Labs 02/04/17 13:28 Assessment and Plan Plan: The patient was seen and examined. I agree with the above assessment and plan. The patient underwent a procedure by Dr. Lau earlier today. Her follow-up chest x-ray reveals a large right-sided pleural effusion. Placement of a chest tube was recommended. The risks, benefits, and alternatives to this procedure were discussed with the patient. All of her questions were answered. We will plan on placing this chest tube in the recovery room today.
--- NOTE | 2017-02-05 14:08 | XR ---
EXAMINATION TYPE: XR chest 2V DATE OF EXAM: 02/05/2017 COMPARISON: NONE INDICATION: Chest tube removal TECHNIQUE: Frontal and lateral views of the chest are obtained. FINDINGS: The heart size is normal. The pulmonary vasculature is normal. There is a right basilar infiltrate. Correlate for pneumonia. Atelectasis could be considered. No res idual pneumothorax is evident. Minimal left pleural effusion may be present. IMPRESSION: 1. No pneumothorax post left chest tube removal. 2. Development of a left basilar infiltrate or consolidation. Correlate for atelectasis. Pneumonia sh ould be considered. Follow-up is recommended. 3. Small left pleural effusion
[2017-02-05] MEDS: LEVOFLOXACIN 500 MG TAB PO SCH (17:02)
[2017-02-05] MEDS ORDERED: diphenhydrAMINE 25 MG CAP PO PRN (18:47)
[2017-02-06] MEDS: LEVOTHYROXINE 100 MCG TAB PO SCH (06:26)
[2017-02-06] MEDS: PARoxetine 20 MG TAB PO SCH (07:41)
[2017-02-06] MEDS: HYDROcodone/APAP 5-325MG 1 EACH TAB PO PRN ×2 (07:42→11:11)
[2017-02-06 07:46] VITALS: BP 117/76; PULSE 72; TEMP 97.9
--- NOTE | 2017-02-06 08:20 | XR ---
EXAMINATION TYPE: XR chest 1V portable DATE OF EXAM: 02/06/2017 COMPARISON: 02/05/2017 HISTORY: Chest tube removal TECHNIQUE: Single frontal view of the chest is obtained. FINDINGS: Small bilateral effusions and consolidation. Less than 5% stable. Heart size stable. No in terstitial edema. IMPRESSION: 1. Less than 5% right apical pneumothorax with small bilateral effusions and basilar infiltrate alyssa garnica
--- NOTE | 2017-02-06 10:17 | P.PN ---
Subjective Principal diagnosis: Right renal calculi, postoperative right hydrothorax, hyperlipidemia, hypothyroid, history of depression, history of bronchitis, and a history of migraine headaches. This is a 56-year-old female patient who was admitted for treatment of right renal calculi by Dr. Lyles. Patient underwent a secondary nephroscopy, secondary nephrolithotomy laser, and placement of antegrade 6 x 26 double-J catheter. subsequently the patient developed a right hydrothorax postoperatively and a right thoracostomy tube was placed by Dr. Shin. S/P day #2 placement of right thoracostomy tube. Patient is sitting up to bedside, no acute distress. Her sister is present at the bedside. Denies complaints of pain at this time. No acute distress. Objective - Vital Signs Vital signs: Vital Signs Temp 97.9 F 02/06/17 07:45 Pulse 72 02/06/17 07:45 Resp 18 02/06/17 07:45 BP 117/76 02/06/17 07:45 Pulse Ox 96 02/06/17 07:45 Intake & Output 02/05/17 02/06/17 02/06/17 18:59 06:59 18:59 Intake Total 655 120 Output Total 715 Balance -60 120 Weight 57.7 kg Intake: IV 475 0 Dextrose 5%-0.45% NaCl 1, 475 0 000 ml @ 75 mls/hr IV . [id number] [facility] Rx#:[id number] Oral 180 120 Output: Chest Tube Drainage 15 Chest Tube Right Lateral 15 Chest Urine 700 Uretheral (Bernstein) 700 Other: Voiding Method Toilet Toilet Toilet # Voids 1 2 - Constitutional General appearance: Present: cooperative, no acute distress, thin - EENT Eyes: Present: PERRLA, normal appearance ENT: Present: hearing grossly normal - Neck Details: No JVD at present, no lymphadenopathy. - Respiratory Details: Lung sounds are essentially clear to her upper lobes, diminished bilateral lower lobes. Respirations are symmetrical and nonlabored. Oxygen saturation are 96% on room air. She is achieving 1000 ml on her incentive spirometry. - Cardiovascular Details: Regular rhythm and rate. S1 and S2 present, negative for S3, gallop or murmur. No edema present. Remote telemetry showing normal sinus rhythm heart rate 74. Sequential compression devices in place to bilateral lower extremities. - Gastrointestinal Gastrointestinal Comment(s): Abdomen is soft, nontender and nondistended. Active bowel sounds all 4 abdominal quadrants. - Genitourinary Genitourinary Comment(s): Urine output adequate, clear yellow urine. - Integumentary Integumentary Comment(s): Right flank and right chest dressing clean dry and intact. No drainage noted. Integumentary: Present: normal, normal turgor - Neurologic Neurologic Comment(s): No focal deficits. Neurologic: Present: CNII-XII intact - Musculoskeletal Musculoskeletal: Present: gait normal, strength equal bilaterally - Psychiatric Psychiatric: Present: A&O x's 3, appropriate affect, intact judgment & insight - Allied health notes Allied health notes reviewed: nursing - Labs CBC & Chem 7: 02/04/17 13:28 - Imaging and Cardiology Chest x-ray: report reviewed, image reviewed Assessment and Plan (1) History of depression Status: Acute (2) Hypothyroid Status: Acute (3) Hyperlipidemia Status: Acute (4) History of bronchitis Status: Acute (5) Renal calculus, right Status: Acute Plan: 1. Her right chest tube was removed yesterday a 2016. 2. Encourage use of her incentive spirometry every hour while awake. 3. DVT and GI prophylaxis. 4. Medical management recommendations per Dr. Lau. 5. May discharge home per thoracic surgery standpoint. We will follow on an as -needed basis. Time with Patient: Greater than 30
--- NOTE | 2017-02-06 10:33 | P.DS ---
Providers Date of admission: 02/04/17 09:04 Expected date of discharge: 02/06/17 Attending physician: Nirmal Lau Consults: 02/04/17 10:06 Consult Physician Stat Consulting Provider: Miguel Shin Reason/Comments: chest tube insertion for right hydrothorax Do you want consulting provider notified?: Already Contacted Primary care physician: Michael Lloyd [facility] Course: On the day of admission, the patient underwent a right secondary PCNL. Postoperatively, she was noted to have a right hydrothorax. She underwent chest tube insertion. The chest tube was removed on 02/05/2017. At the time of discharge, the patient denied dyspnea, dysuria, and hematuria. Procedures: Secondary PCNL on 02/04/2017. Chest tube insertion on 02/04/2017. Patient Condition at Discharge: Good Plan - Discharge Summary New Discharge Prescriptions: New HYDROcodone/APAP 5-325MG [[place] 5-325] 1 tab PO Q4HR PRN #20 tab PRN Reason: Pain Control Hydrocodone/Acetaminophen [[place] 5-325] 1 - 2 each PO Q4HR PRN #20 tab PRN Reason: Pain No Action Simvastatin [Simvastatin] 20 mg PO HS PARoxetine [Paxil] 20 mg PO QAM Potassium Citrate [Potassium Citrate ER] 10 meq PO HS Melatonin 5 mg PO HS PRN PRN Reason: Insomnia Levothyroxine Sodium [Synthroid] 100 mcg PO DAILY HYDROcodone/APAP 5-325MG [[place] 5-325] 1 tab PO Q4HR PRN #20 tab PRN Reason: Pain Control Discharge Medication List PARoxetine [Paxil] 20 mg PO QAM 01/22/15 [History] Simvastatin [Simvastatin] 20 mg PO HS 01/22/15 [History] Melatonin 5 mg PO HS PRN 01/27/17 [History] Potassium Citrate [Potassium Citrate ER] 10 meq PO HS 01/27/17 [History] Levothyroxine Sodium [Synthroid] 100 mcg PO DAILY 02/01/17 [History] HYDROcodone/APAP 5-325MG [[place] 5-325] 1 tab PO Q4HR PRN #20 tab 02/02/17 [Rx] HYDROcodone/APAP 5-325MG [[place] 5-325] 1 tab PO Q4HR PRN #20 tab 02/04/17 [Rx] Hydrocodone/Acetaminophen [[place] 5-325] 1 - 2 each PO Q4HR PRN #20 tab 02/06/17 [Rx] Follow up Appointment(s)/Referral(s): Nirmal Lau MD [STAFF PHYSICIAN] - 10 Days Activity/Diet/Wound Care/Special Instructions: Change nephrostomy tube dressing prior to discharge. Patient may remove dressings on 02/08/2017. She may then shower. She should avoid lifting and strenuous activity. Diet as tolerated. Drink plenty of fluids. Notify Dr. Lau if she develops shortness of breath. Discharge Disposition: HOME SELF-CARE
--- NOTE | 2017-02-09 21:47 | PCN ---
PREOPERATIVE DIAGNOSIS: Large right pleural effusion. POSTOPERATIVE DIAGNOSIS: Large right pleural effusion. PROCEDURE: Placement of right pleural chest tube. SURGEON: BARBRA DELGADO M.D. CONSTRUCTION SITE CROSSING GUARD: GWENDOLYN HILL, Nurse practitioner. ANESTHESIA: Local with IV sedation. SPECIMENS: None. COMPLICATIONS: None. INDICATIONS: The patient is a 56 -year-old female who underwent a nephroscopy by Dr. Lau earlier today. Follow-up chest x-ray revealed a large right pleural effusion. Placement of a chest tube was requested. The risks, benefits , alternatives of the procedure were discussed with the patient. All questions were answered. Consent was obtained. FINDINGS: There was approximately 1500 mL of thin bloody fluid. PROCEDURE IN DETAIL: In the postoperative recovery suite, intravenous sedation was administered to the patient. She was then placed in supine position with the right side bumped. The right chest and flank were then prepped and draped in the usual sterile fashion. Local anesthetic was then infiltrated. A small incision was created. Dissection was taken down through the subcutaneous tissue. The right pleural space was then entered bluntly and a large amount of thin bloody fluid was encountered. I attempted first to place a 28 [place] chest tube. This would not advance very well. An x-ray was obtained and showed that it was not in optimal position. In addition, there was not a large amount of fluid drained. The incision was then enlarged and using a gloved finger, I sterilely probed the area. The right pleural space did contain adhesions between the lung and the chest wall. A straight 28 [place] chest tube was then placed and advanced easier. Return of approximately 1500 mL of thin bloody fluid was a result. The chest tube was secured to the skin. A follow-up chest x-ray did reveal near resolution of the pleural fluid collection. Sterile dressing was applied. The patient appeared to tolerate the procedure well. There were no immediate complications. [facility]
--- NOTE | 2017-02-17 17:09 | CDI ---
In responding to this query, please exercise your independent professional judgment. The [facility] Coding Staff and Clinical Documentation Specialists appreciate your assistance in clarifying documentation, maintaining compliance with coding guidelines, accurately documenting patients condition and capturing severity of illness. The fact that a question is asked does not imply that any particular answer is desired or expected. Communication forms are a method of clarifying documentation and are not made part of the Legal Health Record. Thank you in advance for your clarification. Last Revision, Jul 2016 Gale Brasher [address] [facility] [place] [address] Documentation Clarification Form Date: 02/17/2017 4:50:00 PM From: Dang Smith Phone: Admit Date: 02/04/2017 9:04:00 AM Patient Name: Candace Tripathi Visit Number: [id number] Discharge Date: Dr. Nirmal Lau Postoperative right hydrothorax is documented in the progress notes, consult note and discharge summary. Patients Admitting Diagnosis: Right renal calculi. Post-Operative Diagnosis: Right renal calculi. Procedure performed: Secondary nephroscopy, secondary nephrostolithotomy laser and placement of antegrade catheter. History/Risk Factors: In the 02/04 progress note, it is documented that it was suspected that the percutaneous nephrostomy tube had nicked the pleura when it was placed on previous encounter. It is also documented in that progress note that it was suspected that more fluid was introduced into the pleura during the procedure during this encounter to remove the remaining stone. Clinical Indicators: Shortness of breath, tachycardia and low O2 sats(91 & 89 on 02/07). Treatment: Right thoracostomy tube. Consults: Right hydrothorax. In order to accurately reflect this patients severity of illness, please clarify if the post-operative diagnosis is: An expected post-procedural or post-surgical condition Integral to the procedure Inherent to the procedure An unexpected post-procedural or post-surgical condition, related to surgical care Other, please specify Unable to determine Please document in your progress notes in order to capture severity of illness and risk of mortality. Include clinical findings that support your diagnosis. FYI: Press F11 to launch patient chart If you have a question about this query, please contact Aniya Mtz Director Of Optimization at [phone] between 8am and 5pm. PADDY
--- NOTE | 2017-02-23 09:49 | CDI ---
In responding to this query, please exercise your independent professional judgment. The [facility] Coding Staff and Clinical Documentation Specialists appreciate your assistance in clarifying documentation, maintaining compliance with coding guidelines, accurately documenting patients condition and capturing severity of illness. The fact that a question is asked does not imply that any particular answer is desired or expected. Communication forms are a method of clarifying documentation and are not made part of the Legal Health Record. Thank you in advance for your clarification. Last Revision, Jul 2016 Gale Brasher [address] [facility] [place] [address] Documentation Clarification Form Date: 02/17/2017 4:50:00 PM From: Dang Smith Phone: Admit Date: 02/04/2017 9:04:00 AM Patient Name: Candace Tripathi Visit Number: [id number] Discharge Date: Dr. John Vieyra Postoperative right hydrothorax is documented in the progress notes, consult note and discharge summary. Patients Admitting Diagnosis: Right renal calculi. Post-Operative Diagnosis: Right renal calculi. Procedure performed: Secondary nephroscopy, secondary nephrostolithotomy laser and placement of antegrade catheter. History/Risk Factors: In the 02/04 progress note, it is documented that it was suspected that the percutaneous nephrostomy tube had nicked the pleura when it was placed on previous encounter. It is also documented in that progress note that it was suspected that more fluid was introduced into the pleura during the procedure during this encounter to remove the remaining stone. Clinical Indicators: Shortness of breath, tachycardia and low O2 sats(91 & 89 on 02/07). Treatment: Right thoracostomy tube. Consults: Right hydrothorax. In order to accurately reflect this patients severity of illness, please clarify if the post-operative diagnosis is: An expected post-procedural or post-surgical condition Integral to the procedure Inherent to the procedure An unexpected post-procedural or post-surgical condition, related to surgical care Other, please specify Unable to determine Please document in your discharge summary in order to capture severity of illness and risk of mortality. Include clinical findings that support your diagnosis. FYI: Press F11 to launch patient chart If you have a question about this query, please call Aniya Mtz Naturopath, at [phone] between 8am and 5pm. PADDY
== END 2017-02-06 11:41 | disposition home or self-care (01) | DRG 654 ==
LOC: OR 07:03 → 6SEL 09:04
PROVIDERS: ADMIT Urology; ATTEND Urology
PROC: 0T7B8DZ Dilation of Bladder with Intraluminal Device, Via Natural or Artificial Opening Endoscopic (ICD-10-PCS; 2017-02-04)
PROC: 0TC08ZZ Extirpation of Matter from Right Kidney, Via Natural or Artificial Opening Endoscopic (ICD-10-PCS; principal; 2017-02-04 07:00)
PROC: 0W9930Z Drainage of Right Pleural Cavity with Drainage Device, Percutaneous Approach (ICD-10-PCS; 2017-02-06)
DX: N20.0 Calculus of kidney (principal); J94.8 Other specified pleural conditions; S27.6 Injury of pleura; K76.0 Fatty (change of) liver, not elsewhere classified; T81.89XA Other complications of procedures, not elsewhere classified, initial encounter; E03.9 Hypothyroidism, unspecified; E78.5 Hyperlipidemia, unspecified; L29.9 Pruritus, unspecified; F32.9 Major depressive disorder, single episode, unspecified; G43.909 Migraine, unspecified, not intractable, without status migrainosus; Z79.899 Other long term (current) drug therapy; Z88.0 Allergy status to penicillin; Z88.8 Allergy status to other drugs, medicaments and biological substances; Z91.041 Radiographic dye allergy status; Z82.49 Family history of ischemic heart disease and other diseases of the circulatory system; X58.XXXA Exposure to other specified factors, initial encounter; Y92.239 Unspecified place in hospital as the place of occurrence of the external cause
CPT/HCPCS: 50435; 71010; 71020; 76604; 82365; 85027

== ENCOUNTER 2017-02-09 14:31 | Emergency (ER) | payer BC ==
--- NOTE | 2017-02-09 15:49 | ED ---
Psych HPI - General Chief Complaint: Psychiatric Symptoms Stated Complaint: Mental Health Time Seen by Provider: 02/09/17 14:54 Source: patient, family, RN notes reviewed Mode of arrival: wheelchair - History of Present Illness Initial Comments: This is a 36-year-old female history depression also history kidney stones who states she had a kidney stone removal last week and was just discharged from the hospital 3 days ago who states that initially very depressed since this occurred. This happened last time. Kidney stones removed. She feels very despondent very depressed tearful. She apparently had a protracted course with the kidney stones be removed in of developing a pleural effusion was drained. She states with respect to that she's seen that she's feeling up she has no shortness of breath cough fevers chills or sweats. He is feels very depressed she denies any suicidal thoughts this time however. Per family patient has had persistent nausea and has been unable to take her medication. She currently is not nauseated. MD Complaint: feels depressed - Related Data Home Medications Medication Instructions Recorded Confirmed PARoxetine [Paxil] 20 mg PO QAM 01/22/15 02/22/17 Simvastatin [Simvastatin] 20 mg PO HS 01/22/15 02/22/17 Levothyroxine Sodium [Synthroid] 100 mcg PO DAILY 02/01/17 02/22/17 Potassium Citrate [Urocit-K] 30 meq PO BID 02/09/17 02/22/17 Previous Rx's Medication Instructions Recorded LORazepam [Ativan] 1 mg PO TID PRN #30 tab 02/09/17 Prochlorperazine [Compazine] 10 mg PO Q6H PRN #30 tab 02/09/17 Hydrocodone/Acetaminophen [[place] 1 each PO Q4HR PRN #20 tab 02/22/17 5-325] Ibuprofen [Motrin] 600 mg PO Q6HR PRN #20 tab 02/22/17 Allergies Allergy/AdvReac Type Severity Reaction Status Date / Time amoxicillin Allergy Rash/Hives Verified 02/22/17 19:02 Iodinated Contrast- Oral and Allergy Unknown Verified 02/22/17 19:02 IV Dye iodine Allergy Rash/Hives Verified 02/22/17 19:02 atorvastatin calcium AdvReac ACHY Verified 02/22/17 19:02 [From Lipitor] MUSCLES. Review of Systems ROS Statement: Those systems with pertinent positive or pertinent negative responses have been documented in the HPI. ROS Other: All systems not noted in ROS Statement are negative. Past Medical History Past Medical History: Hyperlipidemia, Liver Disease, Respiratory Disorder, Thyroid Disorder Additional Past Medical History / Comment(s): KIDNEY STONES, FATTY LIVER, HISTORY OF MIGRAINE HEADACHES. History of Any Multi-Drug Resistant Organisms: None Reported Past Surgical History: Hysterectomy, Tonsillectomy Additional Past Surgical History / Comment(s): RIGHT OOPHORECTOMY, MULTIPLE LITHOTRIPSY'S. 02/01/2017 Nephrolitotomy w/nephrostomy tube insertion Past Anesthesia/Blood Transfusion Reactions: Motion Sickness, Postoperative Nausea & Vomiting (PONV) Past Psychological History: Depression Smoking Status: Former smoker - Past Family History Sister(s) Family Medical History: Cancer (1 sister from a brain tumor, 1 sister is in remission from breast cancer.) Additional Family Medical History / Comment(s): 2 sisters and 1 brother with history of EtOH. Brother(s) Additional Family Medical History / Comment(s): Brother had a history of depression, EtOH and drug abuse and committed suicide at a young age. Mother Family Medical History: Cancer (History of breast cancer.), Coronary Artery Disease (CAD) (Her mother underwent a coronary artery bypass grafting surgery and at age 58.) Additional Family Medical History / Comment(s): BREAST CANCER Father Family Medical History: Coronary Artery Disease (CAD) (Father at age 52.) General Exam - General Exam Comments Initial Comments: This is a well-developed well-nourished awake alert oriented 3 female Limitations: no limitations General appearance: alert Head exam: Present: atraumatic, normocephalic, normal inspection Eye exam: Present: normal appearance, PERRL, EOMI. Absent: scleral icterus, conjunctival injection, periorbital swelling ENT exam: Present: normal exam, mucous membranes moist Neck exam: Present: normal inspection. Absent: tenderness, meningismus, lymphadenopathy Respiratory exam: Present: normal lung sounds bilaterally. Absent: respiratory distress, wheezes, rales, rhonchi, stridor, chest wall tenderness Cardiovascular Exam: Present: normal rhythm, tachycardia, normal heart sounds. Absent: systolic murmur, diastolic murmur, rubs, gallop, clicks GI/Abdominal exam: Present: soft, normal bowel sounds. Absent: distended, tenderness, guarding, rebound, rigid Extremities exam: Present: normal inspection, full ROM, normal capillary refill. Absent: tenderness, pedal edema, joint swelling, calf tenderness Back exam: Present: normal inspection Neurological exam: Present: alert, oriented X3, CN II-XII intact Psychiatric exam: Present: depressed, flat affect Skin exam: Present: warm, dry, intact, normal color. Absent: rash Course Vital Signs 02/09/17 02/09/17 14:52 17:21 Temperature 98.9 F 98.7 F Pulse Rate 115 H 80 Respiratory 22 16 Rate Blood Pressure 156/70 150/81 O2 Sat by Pulse 99 100 Oximetry Medical Decision Making - Lab Data Lab Results 02/09/17 Range/Units 16:30 Urine Opiates Screen Not Detected (NotDetected) Ur Oxycodone Screen Not Detected (NotDetected) Urine Methadone Screen Not Detected (NotDetected) Ur Propoxyphene Screen Not Detected (NotDetected) Ur Barbiturates Screen Not Detected (NotDetected) U Tricyclic Antidepress Not Detected (NotDetected) Ur Phencyclidine Scrn Not Detected (NotDetected) Ur Amphetamines Screen Not Detected (NotDetected) U Methamphetamines Scrn Not Detected (NotDetected) U Benzodiazepines Scrn Detected H (NotDetected) Urine Cocaine Screen Not Detected (NotDetected) U Marijuana (THC) Screen Not Detected (NotDetected) Disposition Clinical Impression: Acute anxiety, Depression Disposition: HOME SELF-CARE Condition: Good Instructions: Depression (ED) Prescriptions: LORazepam [Ativan] 1 mg PO TID PRN #30 tab PRN Reason: Anxiety Prochlorperazine [Compazine] 10 mg PO Q6H PRN #30 tab PRN Reason: Nausea Referrals: Michael Lloyd DO [Primary Care Provider] - 1-2 days
[2017-02-09 17:22] VITALS: BP 150/81; PULSE 80; RESP 16; TEMP 98.7
--- NOTE | 2017-02-11 08:57 | CDI ---
Documentation Clarification OP Dear Dr. Jorge Talley Please do addendum to ED report for missing Clinical Impression. Thank you, Anabelle Lockwood [employer] If you have any questions, please contact [employer] at [phone] [facility]
== END 2017-02-09 17:22 | disposition home or self-care (01) ==
LOC: EC 14:31
DX: F41.9 Anxiety disorder, unspecified (principal); F32.9 Major depressive disorder, single episode, unspecified; E78.5 Hyperlipidemia, unspecified; E07.9 Disorder of thyroid, unspecified; Z79.899 Other long term (current) drug therapy; Z88.0 Allergy status to penicillin; Z88.8 Allergy status to other drugs, medicaments and biological substances; Z91.048 Other nonmedicinal substance allergy status; Z91.041 Radiographic dye allergy status; Z87.891 Personal history of nicotine dependence
CPT/HCPCS: 80306; 82075; 99284

== ENCOUNTER 2017-02-22 17:15 | Emergency (ER) | payer BC ==
[2017-02-22] MEDS ORDERED: KETOROLAC 60 MG/2 ML VIAL IVP STA (18:54)
[2017-02-22] MEDS ORDERED: HYDROmorphone 1 MG/ML 1 ML SYRINGE IVP STA (18:54)
[2017-02-22] MEDS ORDERED: ONDANSETRON 4 MG/2 ML VIAL IVP STA (18:55)
--- NOTE | 2017-02-22 19:04 | ED ---
General Adult HPI - General Chief complaint: Recheck/Abnormal Lab/Rx Stated complaint: Post Surgical Complications Time Seen by Provider: 02/22/17 17:45 Source: patient, RN notes reviewed Mode of arrival: ambulatory Limitations: no limitations - History of Present Illness Initial comments: This a 56-year-old female presents emergency department stating that she had a procedure done on her right kidney and in that process the pleura of her lung was injected and fluid accumulated so she needed a chest tube and was admitted to the hospital approximately one week ago she was discharged. Patient states since that time she has had chest pain with inspiration or expiration. Patient states it's been ongoing for the week but today the pain would not go away and that was new. Patient states she's not short of breath but she can't take a deep breath so sometimes she feels as though she is short of breath. Patient denies any anterior chest pain or palpitations. Patient denies any fever. Patient denies any other new symptoms. - Related Data Home Medications Medication Instructions Recorded Confirmed PARoxetine [Paxil] 20 mg PO QAM 01/22/15 02/22/17 Simvastatin [Simvastatin] 20 mg PO HS 01/22/15 02/22/17 Levothyroxine Sodium [Synthroid] 100 mcg PO DAILY 02/01/17 02/22/17 Potassium Citrate [Urocit-K] 30 meq PO BID 02/09/17 02/22/17 Previous Rx's Medication Instructions Recorded LORazepam [Ativan] 1 mg PO TID PRN #30 tab 02/09/17 Prochlorperazine [Compazine] 10 mg PO Q6H PRN #30 tab 02/09/17 Hydrocodone/Acetaminophen [[place] 1 each PO Q4HR PRN #20 tab 02/22/17 5-325] Ibuprofen [Motrin] 600 mg PO Q6HR PRN #20 tab 02/22/17 Allergies Allergy/AdvReac Type Severity Reaction Status Date / Time amoxicillin Allergy Rash/Hives Verified 02/22/17 19:02 Iodinated Contrast- Oral and Allergy Unknown Verified 02/22/17 19:02 IV Dye iodine Allergy Rash/Hives Verified 02/22/17 19:02 atorvastatin calcium AdvReac ACHY Verified 02/22/17 19:02 [From Lipitor] MUSCLES. Review of Systems ROS Statement: Those systems with pertinent positive or pertinent negative responses have been documented in the HPI. ROS Other: All systems not noted in ROS Statement are negative. Past Medical History Past Medical History: Hyperlipidemia, Liver Disease, Respiratory Disorder, Thyroid Disorder Additional Past Medical History / Comment(s): KIDNEY STONES, FATTY LIVER, HISTORY OF MIGRAINE HEADACHES. History of Any Multi-Drug Resistant Organisms: None Reported Past Surgical History: Hysterectomy, Tonsillectomy Additional Past Surgical History / Comment(s): RIGHT OOPHORECTOMY, MULTIPLE LITHOTRIPSY'S. 02/01/2017 Nephrolitotomy w/nephrostomy tube insertion Past Anesthesia/Blood Transfusion Reactions: Motion Sickness, Postoperative Nausea & Vomiting (PONV) Past Psychological History: Depression Smoking Status: Former smoker Past Alcohol Use History: None Reported Past Drug Use History: None Reported - Past Family History Sister(s) Family Medical History: Cancer (1 sister from a brain tumor, 1 sister is in remission from breast cancer.) Additional Family Medical History / Comment(s): 2 sisters and 1 brother with history of EtOH. Brother(s) Additional Family Medical History / Comment(s): Brother had a history of depression, EtOH and drug abuse and committed suicide at a young age. Mother Family Medical History: Cancer (History of breast cancer.), Coronary Artery Disease (CAD) (Her mother underwent a coronary artery bypass grafting surgery and at age 58.) Additional Family Medical History / Comment(s): BREAST CANCER Father Family Medical History: Coronary Artery Disease (CAD) (Father at age 52.) General Exam - General Exam Comments Initial Comments: GENERAL: Patient is well-developed and well-nourished. Patient is nontoxic and well- hydrated and is in mild distress. ENT: Neck is soft and supple. No significant lymphadenopathy is noted. Oropharynx is clear. Moist mucous membranes. Neck has full range of motion without eliciting any pain. EYES: The sclera were anicteric and conjunctiva were pink and moist. Extraocular movements were intact and pupils were equal round and reactive to light. Eyelids were unremarkable. PULMONARY: Diminished breath sounds right base CARDIOVASCULAR: There is a regular rate and rhythm without any murmurs gallops or rubs. ABDOMEN: Soft and nontender with normal bowel sounds. No palpable organomegaly was noted. There is no palpable pulsatile mass. SKIN: Skin is clear with no lesions or rashes and otherwise unremarkable. NEUROLOGIC: Patient is alert and oriented x3. Cranial nerves II through XII are grossly intact. Motor and sensory are also intact. Normal speech, volume and content. Symmetrical smile. MUSCULOSKELETAL: Normal extremities with adequate strength and full range of motion. LYMPHATICS: No significant lymphadenopathy is noted PSYCHIATRIC: Normal psychiatric evaluation. Limitations: no limitations Course Vital Signs 02/22/17 02/22/17 17:22 20:37 Temperature 98.0 F Pulse Rate 98 104 H Respiratory 20 16 Rate Blood Pressure 153/82 135/70 O2 Sat by Pulse 98 93 L Oximetry Medical Decision Making - Medical Decision Making Patient's chest x-ray shows a little larger effusion on the right. I went back to evaluate the patient she was stating she felt much improved. Patient states she wants to go home and follow-up with her doctor. Disposition Clinical Impression: Pleural effusion Disposition: HOME SELF-CARE Condition: Good Instructions: Pleural Effusion (ED) Additional Instructions: Patient should follow-up with cardiothoracic surgeon for the pleural effusion. Patient should take Motrin every 6 hours. Patient states [place] when necessary for pain. Patient should use spirometry at least 10 times an hour. Prescriptions: Hydrocodone/Acetaminophen [[place] 5-325] 1 each PO Q4HR PRN #20 tab PRN Reason: Pain Ibuprofen [Motrin] 600 mg PO Q6HR PRN #20 tab PRN Reason: For pain Referrals: Michael Lloyd DO [Primary Care Provider] - 1-2 days Time of Disposition: 20:54
--- NOTE | 2017-02-22 19:54 | XR ---
EXAMINATION TYPE: XR chest 2V DATE OF EXAM: 02/22/2017 COMPARISON: 02/06/2017 HISTORY: Chest pain TECHNIQUE: Frontal and lateral views of the chest are obtained. FINDINGS: Heart and mediastinum are normal. There is blunting of both costophrenic angles and more o n the right side. There is no heart failure. Bony thorax is intact. IMPRESSION: Bilateral pleural effusions. Fluid is increased on the right side compared to old exam. No heart failure.
[2017-02-22 20:38] VITALS: BP 135/70
[2017-02-22 21:13] VITALS: PULSE 90; RESP 18; TEMP 98.5
== END 2017-02-22 21:13 | disposition home or self-care (01) ==
LOC: EC 17:15
DX: J90 Pleural effusion, not elsewhere classified (principal); E78.5 Hyperlipidemia, unspecified; E07.9 Disorder of thyroid, unspecified; F32.9 Major depressive disorder, single episode, unspecified; Z87.891 Personal history of nicotine dependence; Z79.899 Other long term (current) drug therapy; Z88.0 Allergy status to penicillin; Z91.041 Radiographic dye allergy status; Z88.8 Allergy status to other drugs, medicaments and biological substances
CPT/HCPCS: 71020; 99283; 96374; 96375 ×2; J2405; J1885; J1170

== ENCOUNTER 2017-03-01 02:24 | Inpatient (IN) | payer BC ==
[2017-03-01] MEDS ORDERED: HYDROmorphone 2 MG/ML 1 ML SYRINGE IVP STA (03:06)
[2017-03-01] MEDS ORDERED: SODIUM CHLORIDE 0.9% 1,000 ML IV STA ×3 (03:06→04:34)
[2017-03-01] MEDS ORDERED: ACETAMINOPHEN IV (For NPO) 1,000 MG in EMPTY BAG 1 BAG IVPB STA (03:06)
[2017-03-01] MEDS ORDERED: KETOROLAC 30 MG/ML 1 ML VIAL IVP STA (03:06)
[2017-03-01] MEDS ORDERED: ONDANSETRON 4 MG/2 ML VIAL IVP STA (03:06)
--- NOTE | 2017-03-01 03:07 | ED ---
General Adult HPI - General Chief complaint: Chest Pain Stated complaint: fever,cough post surgery Time Seen by Provider: 03/01/17 02:45 Source: patient, family, RN notes reviewed, old records reviewed Mode of arrival: ambulatory Limitations: no limitations - History of Present Illness Initial comments: This is a 56-year-old female in the ER for evaluation of chest pain back pain shortness of breath. Patient is Located recent medical history stemming from kidney surgery, patient did have a pneumothorax with a chest tube. Symptoms from that all results are resolved. Patient did have a revisit to the ER for pain and was given pain control and felt fine. Patient returns today with shortness of breath increasing pain and a fever earlier today of 104. At this time patient states she is still having pain fevers control. Denies any abdominal pain. No dysuria or diarrhea - Related Data Home Medications Medication Instructions Recorded Confirmed PARoxetine [Paxil] 20 mg PO QAM 01/22/15 03/01/17 Simvastatin [Simvastatin] 20 mg PO HS 01/22/15 03/01/17 Levothyroxine Sodium [Synthroid] 100 mcg PO DAILY 02/01/17 03/01/17 Potassium Citrate [Urocit-K] 30 meq PO BID 02/09/17 03/01/17 Hydrocodone/Acetaminophen [[place] 1 tab PO Q4HR PRN 03/01/17 03/01/17 5-325] Previous Rx's Medication Instructions Recorded LORazepam [Ativan] 1 mg PO TID PRN #30 tab 02/09/17 Prochlorperazine [Compazine] 10 mg PO Q6H PRN #30 tab 02/09/17 Ibuprofen [Motrin] 600 mg PO Q6HR PRN #20 tab 02/22/17 Allergies Allergy/AdvReac Type Severity Reaction Status Date / Time amoxicillin Allergy Rash/Hives Verified 03/01/17 06:49 Iodinated Contrast- Oral and Allergy Rash/Hives Verified 03/01/17 06:49 IV Dye iodine Allergy Rash/Hives Verified 03/01/17 06:49 atorvastatin calcium AdvReac ACHY Verified 03/01/17 06:49 [From Lipitor] MUSCLES. Review of Systems ROS Statement: Those systems with pertinent positive or pertinent negative responses have been documented in the HPI. ROS Other: All systems not noted in ROS Statement are negative. Past Medical History Past Medical History: Hyperlipidemia, Liver Disease, Respiratory Disorder, Thyroid Disorder Additional Past Medical History / Comment(s): KIDNEY STONES, FATTY LIVER, HISTORY OF MIGRAINE HEADACHES. History of Any Multi-Drug Resistant Organisms: None Reported Past Surgical History: Hysterectomy, Tonsillectomy Additional Past Surgical History / Comment(s): RIGHT OOPHORECTOMY, MULTIPLE LITHOTRIPSY'S. 02/01/2017 Nephrolitotomy w/nephrostomy tube insertion Past Anesthesia/Blood Transfusion Reactions: Motion Sickness, Postoperative Nausea & Vomiting (PONV) Past Psychological History: Depression Smoking Status: Former smoker - Past Family History Sister(s) Family Medical History: Cancer (1 sister from a brain tumor, 1 sister is in remission from breast cancer.) Additional Family Medical History / Comment(s): 2 sisters and 1 brother with history of EtOH. Brother(s) Additional Family Medical History / Comment(s): Brother had a history of depression, EtOH and drug abuse and committed suicide at a young age. Mother Family Medical History: Cancer (History of breast cancer.), Coronary Artery Disease (CAD) (Her mother underwent a coronary artery bypass grafting surgery and at age 58.) Additional Family Medical History / Comment(s): BREAST CANCER Father Family Medical History: Coronary Artery Disease (CAD) (Father at age 52.) General Exam - General Exam Comments Initial Comments: Well healed and clean and dry incisions of surgical sites Limitations: no limitations General appearance: alert, in no apparent distress Head exam: Present: atraumatic, normocephalic, normal inspection Eye exam: Present: normal appearance, PERRL, EOMI. Absent: scleral icterus, conjunctival injection, periorbital swelling ENT exam: Present: normal exam, mucous membranes moist Neck exam: Present: normal inspection. Absent: tenderness, meningismus, lymphadenopathy Respiratory exam: Present: normal lung sounds bilaterally. Absent: respiratory distress, wheezes, rales, rhonchi, stridor Cardiovascular Exam: Present: regular rate, normal rhythm, normal heart sounds. Absent: systolic murmur, diastolic murmur, rubs, gallop, clicks GI/Abdominal exam: Present: soft, normal bowel sounds. Absent: distended, tenderness, guarding, rebound, rigid Extremities exam: Present: normal inspection, full ROM, normal capillary refill. Absent: tenderness, pedal edema, joint swelling, calf tenderness Back exam: Present: normal inspection Neurological exam: Present: alert, oriented X3, CN II-XII intact Psychiatric exam: Present: normal affect, normal mood Skin exam: Present: warm, dry, intact, normal color. Absent: rash Course Vital Signs 03/01/17 03/01/17 03/01/17 02:33 06:24 07:15 Temperature 99.3 F 97.2 F L 97.5 F L Pulse Rate 107 H 103 H 90 Pulse Rate [ Pulse Oximetery ] Respiratory 22 14 11 L Rate Blood Pressure 126/70 90/54 95/58 O2 Sat by Pulse 97 94 L 97 Oximetry 03/01/17 03/01/17 03/01/17 07:17 07:26 07:42 Temperature Pulse Rate 92 90 96 Pulse Rate [ Pulse Oximetery ] Respiratory 11 L 13 Rate Blood Pressure O2 Sat by Pulse 98 Oximetry 03/01/17 08:00 Temperature Pulse Rate Pulse Rate [ 92 Pulse Oximetery ] Respiratory 14 Rate Blood Pressure O2 Sat by Pulse Oximetry - Reevaluation(s) Reevaluation #1: 03/01/17 05:46 Patient does have adequate chest pain control at this time. No shortness of breath, pulse ox continuing to remain in the low 90s Reevaluation #2: 03/01/17 05:46 Patient's medical record and hospitalizations are thoroughly reviewed including surgical history EKG Findings - EKG Comments: EKG Findings:: EKG shows normal sinus rhythm at 96, ND 138, QRS 78, QTC 437 Medical Decision Making - Medical Decision Making 56 female ER for evaluation of chest pain, continue chest pain with kidney issue , patient has had positive fever, persistent fever with increasing pain. CT negative for PE. Patient will be admitted for pulmonary evaluation - Lab Data Result diagrams: 03/05/17 08:00 03/05/17 08:00 Lab Results 03/01/17 03/01/17 03/01/17 Range/Units 02:56 02:56 02:56 WBC 9.0 (3.8-10.6) k/uL RBC 3.42 L (3.80-5.40) m/uL Hgb 10.8 L (11.4-16.0) gm/dL Hct 30.7 L (34.0-46.0) % MCV 90.0 D (80.0-100.0) fL MCH 31.6 (25.0-35.0) pg MCHC 35.1 (31.0-37.0) g/dL RDW 12.7 (11.5-15.5) % Plt Count 391 (150-450) k/uL Neutrophils % 78 % Lymphocytes % 12 % Monocytes % 7 % Eosinophils % 1 % Basophils % 0 % Neutrophils # 7.0 (1.3-7.7) k/uL Lymphocytes # 1.1 (1.0-4.8) k/uL Monocytes # 0.6 (0-1.0) k/uL Eosinophils # 0.1 (0-0.7) k/uL Basophils # 0.0 (0-0.2) k/uL Poikilocytosis Slight PT (9.0-12.0) sec INR (<1.2) APTT (22.0-30.0) sec Sodium 136 L (137-145) mmol/L Potassium 3.4 L (3.5-5.1) mmol/L Chloride 106 (98-107) mmol/L Carbon Dioxide 19 L (22-30) mmol/L Anion Gap 11 mmol/L BUN 15 (7-17) mg/dL Creatinine 0.93 (0.52-1.04) mg/dL Est GFR (MDRD) Af Amer >60 (>60 ml/min/1.73 sqM) Est GFR (MDRD) Non-Af >60 (>60 ml/min/1.73 sqM) Glucose 107 H (74-99) mg/dL Plasma Lactic Acid Vito (0.7-2.0) mmol/L Calcium 9.5 (8.4-10.2) mg/dL Phosphorus 1.8 L (2.5-4.5) mg/dL Magnesium 1.7 (1.6-2.3) mg/dL Total Bilirubin 0.6 (0.2-1.3) mg/dL AST 14 (14-36) U/L ALT 22 (9-52) U/L Alkaline Phosphatase 85 (38-126) U/L Total Creatine Kinase 30 (30-135) U/L CK-MB (CK-2) <0.2 (0.0-2.4) ng/mL CK-MB (CK-2) Rel Index Troponin I <0.012 (0.000-0.034) ng/mL NT-Pro-B Natriuret Pep pg/mL Total Protein 6.8 (6.3-8.2) g/dL Albumin 3.8 (3.5-5.0) g/dL Urine Color Urine Appearance (Clear) Urine pH (5.0-8.0) Ur Specific [place] (1.001-1.035) Urine Protein (Negative) Urine Glucose (UA) (Negative) Urine Ketones (Negative) Urine Blood (Negative) Urine Nitrite (Negative) Urine Bilirubin (Negative) Urine Urobilinogen (<2.0) mg/dL Ur Leukocyte Esterase (Negative) Urine RBC (0-5) /hpf Urine WBC (0-5) /hpf Ur Squamous Epith Cells (0-4) /hpf Urine Mucus (None) /hpf 03/01/17 03/01/17 03/01/17 Range/Units 02:56 02:56 02:56 WBC (3.8-10.6) k/uL RBC (3.80-5.40) m/uL Hgb (11.4-16.0) gm/dL Hct (34.0-46.0) % MCV (80.0-100.0) fL MCH (25.0-35.0) pg MCHC (31.0-37.0) g/dL RDW (11.5-15.5) % Plt Count (150-450) k/uL Neutrophils % % Lymphocytes % % Monocytes % % Eosinophils % % Basophils % % Neutrophils # (1.3-7.7) k/uL Lymphocytes # (1.0-4.8) k/uL Monocytes # (0-1.0) k/uL Eosinophils # (0-0.7) k/uL Basophils # (0-0.2) k/uL Poikilocytosis PT 10.7 (9.0-12.0) sec INR 1.1 (<1.2) APTT 23.7 (22.0-30.0) sec Sodium (137-145) mmol/L Potassium (3.5-5.1) mmol/L Chloride (98-107) mmol/L Carbon Dioxide (22-30) mmol/L Anion Gap mmol/L BUN (7-17) mg/dL Creatinine (0.52-1.04) mg/dL Est GFR (MDRD) Af Amer (>60 ml/min/1.73 sqM) Est GFR (MDRD) Non-Af (>60 ml/min/1.73 sqM) Glucose (74-99) mg/dL Plasma Lactic Acid Vito 1.0 (0.7-2.0) mmol/L Calcium (8.4-10.2) mg/dL Phosphorus (2.5-4.5) mg/dL Magnesium (1.6-2.3) mg/dL Total Bilirubin (0.2-1.3) mg/dL AST (14-36) U/L ALT (9-52) U/L Alkaline Phosphatase (38-126) U/L Total Creatine Kinase (30-135) U/L CK-MB (CK-2) (0.0-2.4) ng/mL CK-MB (CK-2) Rel Index Troponin I (0.000-0.034) ng/mL NT-Pro-B Natriuret Pep 290 pg/mL Total Protein (6.3-8.2) g/dL Albumin (3.5-5.0) g/dL Urine Color Urine Appearance (Clear) Urine pH (5.0-8.0) Ur Specific [place] (1.001-1.035) Urine Protein (Negative) Urine Glucose (UA) (Negative) Urine Ketones (Negative) Urine Blood (Negative) Urine Nitrite (Negative) Urine Bilirubin (Negative) Urine Urobilinogen (<2.0) mg/dL Ur Leukocyte Esterase (Negative) Urine RBC (0-5) /hpf Urine WBC (0-5) /hpf Ur Squamous Epith Cells (0-4) /hpf Urine Mucus (None) /hpf 03/01/17 Range/Units 04:37 WBC (3.8-10.6) k/uL RBC (3.80-5.40) m/uL Hgb (11.4-16.0) gm/dL Hct (34.0-46.0) % MCV (80.0-100.0) fL MCH (25.0-35.0) pg MCHC (31.0-37.0) g/dL RDW (11.5-15.5) % Plt Count (150-450) k/uL Neutrophils % % Lymphocytes % % Monocytes % % Eosinophils % % Basophils % % Neutrophils # (1.3-7.7) k/uL Lymphocytes # (1.0-4.8) k/uL Monocytes # (0-1.0) k/uL Eosinophils # (0-0.7) k/uL Basophils # (0-0.2) k/uL Poikilocytosis PT (9.0-12.0) sec INR (<1.2) APTT (22.0-30.0) sec Sodium (137-145) mmol/L Potassium (3.5-5.1) mmol/L Chloride (98-107) mmol/L Carbon Dioxide (22-30) mmol/L Anion Gap mmol/L BUN (7-17) mg/dL Creatinine (0.52-1.04) mg/dL Est GFR (MDRD) Af Amer (>60 ml/min/1.73 sqM) Est GFR (MDRD) Non-Af (>60 ml/min/1.73 sqM) Glucose (74-99) mg/dL Plasma Lactic Acid Vito (0.7-2.0) mmol/L Calcium (8.4-10.2) mg/dL Phosphorus (2.5-4.5) mg/dL Magnesium (1.6-2.3) mg/dL Total Bilirubin (0.2-1.3) mg/dL AST (14-36) U/L ALT (9-52) U/L Alkaline Phosphatase (38-126) U/L Total Creatine Kinase (30-135) U/L CK-MB (CK-2) (0.0-2.4) ng/mL CK-MB (CK-2) Rel Index Troponin I (0.000-0.034) ng/mL NT-Pro-B Natriuret Pep pg/mL Total Protein (6.3-8.2) g/dL Albumin (3.5-5.0) g/dL Urine Color Colorless Urine Appearance Clear (Clear) Urine pH 7.5 (5.0-8.0) Ur Specific [place] 1.003 (1.001-1.035) Urine Protein Negative (Negative) Urine Glucose (UA) Negative (Negative) Urine Ketones Negative (Negative) Urine Blood Negative (Negative) Urine Nitrite Negative (Negative) Urine Bilirubin Negative (Negative) Urine Urobilinogen <2.0 (<2.0) mg/dL Ur Leukocyte Esterase Trace H (Negative) Urine RBC <1 (0-5) /hpf Urine WBC 6 H (0-5) /hpf Ur Squamous Epith Cells 1 (0-4) /hpf Urine Mucus Rare H (None) /hpf - Radiology Data Radiology results: report reviewed (Chest x-ray is improved from prior), image reviewed Disposition Clinical Impression: Chest pain, Pleural effusion, Fever, Postoperative pain Disposition: ADMITTED IP TO THIS HOSP Condition: Fair
[2017-03-01 03:18] LABS: Basophils % (A) 0 %; CH 31.3; Eosinophils # (A) 0.1 k/uL (0-0.7); Eosinophils % (A) 1 %; HCT 30.7 % (34.0-46.0); HDW 3.68; HGB 10.8 gm/dL (11.4-16.0); Luc # (Auto) 0.17; Luc % (Auto) 2; Lymphocytes # (A) 1.1 k/uL (1.0-4.8); Lymphocytes % (A) 12 %; MCH 31.6 pg (25.0-35.0); MCHC 35.1 g/dL (31.0-37.0); Mean Platelet Volume 6.4; Monocytes # (A) 0.6 k/uL (0-1.0); Monocytes % (A) 7 %; Neutrophils % (A) 78 %; Poikilocytosis Slight; RBC 3.42 m/uL (3.80-5.40); RDW 12.7 % (11.5-15.5); WBC (Perox) 9.43
[2017-03-01 03:28] LABS: INR 1.1 (<1.2); Partial Thromboplastin Time 23.7 sec (22.0-30.0); Prothrombin Time 10.7 sec (9.0-12.0)
[2017-03-01 03:29] LABS: ALT 22 U/L (9-52); AST 14 U/L (14-36); Alkaline Phosphatase 85 U/L (38-126); Anion Gap 11 mmol/L; Blood Urea Nitrogen 15 mg/dL (7-17); Calcium 9.5 mg/dL (8.4-10.2); Carbon Dioxide 19 mmol/L (22-30); Chloride 106 mmol/L (98-107); Glucose 107 mg/dL (74-99); Magnesium 1.7 mg/dL (1.6-2.3); Non-African American GFR(MDRD) >60 (>60 ml/min/1.73 sqM); Phosphorous 1.8 mg/dL (2.5-4.5); Potassium 3.4 mmol/L (3.5-5.1); Sodium 136 mmol/L (137-145); Total Bilirubin 0.6 mg/dL (0.2-1.3); Total Protein 6.8 g/dL (6.3-8.2)
[2017-03-01 03:39] LABS: Creatine Kinase 30 U/L (30-135)
[2017-03-01 03:52] LABS: Creatine Kinase MB <0.2 ng/mL (0.0-2.4); Troponin I <0.012 ng/mL (0.000-0.034)
--- NOTE | 2017-03-01 03:56 | XR ---
EXAM: XR Chest, 2 Views CLINICAL HISTORY: Reason: Weakness TECHNIQUE: Frontal and lateral views of the chest. COMPARISON: 02/22/2017 FINDINGS: Lungs: Right basilar infiltrates cannot be definitively excluded. Probable left basilar linear atelectasis. No other significant interval change. Pleural space: Blunting of the right costophrenic angle is again seen, consistent with a stable right pleural effusion. Interval resolution of the previously seen left pleural effusion. No pneumothorax. Heart: Unremarkable. No cardiomegaly. Mediastinum: Unremarkable. Bones/joints: Unchanged. IMPRESSION: Stable small right pleural effusion. Right basilar infiltrates cannot be definitively excluded. Resolution of previously seen left pleural effusion.
[2017-03-01 04:45] LABS: Appearance,Urine Clear (Clear); Bilirubin,Urine Negative (Negative); Glucose,Urine (UA) Negative (Negative); Ketones,Urine Negative (Negative); Leukocyte Esterase,Urine Trace (Negative); Mucus,Urine Rare /hpf; Nitrite,Urine Negative (Negative); PH, Urine 7.5 (5.0-8.0); Particle Count 1320; Protein,Urine Negative (Negative); RBC,Urine <1 /hpf (0-5); Specific Gravity,Urine 1.003 (1.001-1.035); Squamous Epithelial Cell,Urine 1 /hpf (0-4); UA Billing (MACRO vs. MICRO) MICRO; Urobilinogen,Urine <2.0 mg/dL (<2.0); WBC,Urine 6 /hpf (0-5)
[2017-03-01] MEDS ORDERED: FAMOTIDINE 20 MG/2 ML VIAL IV STA (05:10)
[2017-03-01] MEDS ORDERED: diphenhydrAMINE 50 MG/ML 1 ML VIAL IVP STA (05:10)
[2017-03-01] MEDS ORDERED: methylPREDNISolone SOD SUCCI 125 MG/2 ML VIAL IV STA (05:10)
[2017-03-01] MEDS ORDERED: RX INFO: IV CONTRAST WAS GIVEN 1 EACH MISC MISCELLANE PRN (05:10)
--- NOTE | 2017-03-01 06:32 | CT ---
EXAM: CT Angiography Chest With Intravenous Contrast CLINICAL HISTORY: Right-sided chest pain with shortness of breath. TECHNIQUE: Axial computed tomographic angiography images of the chest with intravenous contrast using pulmonary embolism protocol. DLP is 147.40 mGy-cm. This CT exam was performed using one or more of the following dose reduction techniques: automated exposure control, adjustment of the mA and/or kV according to patient size, and/or use of iterative reconstruction technique. MIP reconstructed images were created and reviewed. COMPARISON: Chest x-ray from earlier the same day. FINDINGS: Pulmonary arteries: Unremarkable. No pulmonary embolism. Aorta: No acute findings. No thoracic aortic aneurysm. Lungs: Small/moderate in size right pleural effusion is seen, which appears loculated, resulting in compressive atelectasis of the right lower lobe. A superimposed infection cannot be definitively excluded. Dependent atelectasis is also seen involving the left lower lobe. Pleural space: See above. Heart: Unremarkable. No cardiomegaly. No significant pericardial effusion. No evidence of RV dysfunction. Mediastinum: Fluid is seen within the esophagus raising concern for gastric esophageal reflux. Underlying mass cannot be definitively excluded. Bones/joints: No acute fracture. No dislocation. Soft tissues: Unremarkable. Lymph nodes: Unremarkable. No significantly enlarged lymph nodes. Kidneys and ureters: Postprocedural changes are seen involving the right kidney. Subcentimeter nonobstructive stones are noted within the lower pole the right kidney, suboptimally evaluated on this study. IMPRESSION: 1. Small/moderate in size right pleural effusion, which appears loculated, resulting in compressive atelectasis of the right lower lobe. A superimposed infection cannot be definitively excluded. Attention on follow-up after treatment is recommended to assure resolution. 2. No evidence of pulmonary embolism. 3. Fluid within the esophagus raising concern for gastroesophageal reflux. Underlying mass cannot be definitively excluded. [employer] 03/01/17 06:27 Call Doctor Regarding Pulmonary Embolism, called Dr. Badillo on 03/01 06:26 (-04:00)
[2017-03-01] MEDS ORDERED: IPRATROPIUM-ALBUTEROL 3 ML NEB INHALATION STA (06:53)
[2017-03-01] MEDS ORDERED: HYDROmorphone 1 MG/ML 1 ML SYRINGE IVP PRN (06:53)
[2017-03-01] MEDS ORDERED: IV VANCOMYCIN PER PHARMACY 1 EACH MISC MISCELLANE PRN (07:18)
[2017-03-01] MEDS ORDERED: CEFEPIME 2 GM in SODIUM CHLORIDE 0.9% 50 ML IVPB STA (07:18)
[2017-03-01] MEDS ORDERED: VANCOMYCIN 1,000 MG in SODIUM CHLORIDE 0.9% 250 ML IVPB ONE (08:00)
[2017-03-01] MEDS ORDERED: traMADol 50 MG TAB PO PRN (09:28)
[2017-03-01] MEDS ORDERED: Magnesium Replacement Protocol 1 EACH MISC MISCELLANE PRN ×2 (09:30→10:21)
[2017-03-01] MEDS ORDERED: Potassium Replacement Protocol 1 EACH MISC MISCELLANE PRN ×2 (09:30→10:21)
[2017-03-01] MEDS ORDERED: HYDROcodone/APAP 5-325MG 1 EACH TAB PO PRN (10:49)
[2017-03-01] MEDS ORDERED: POTASSIUM CHLORIDE ER 20 MEQ TAB.ER PO SCH (11:00)
[2017-03-01] MEDS: ENOXAPARIN 40 MG/0.4 ML SYRINGE SQ SCH (11:04)
--- NOTE | 2017-03-01 11:09 | P.HPIM ---
History of Present Illness Patient is a very pleasant 56-year-old female came in with compensative right- sided chest pain pleuritic in nature and about 9 x 10 in severity and patient had a fever of 104 last night because of which patient came in to ER and underwent a CAT scan of the chest which showed loculated pleural effusion on the right side. There is moderate amount of effusion patient was given cefepime was started on vancomycin patient will be resumed on cefepime. Patient during her last hospitalization about 20-25 days ago had a urological procedure which was complicated by injury to the pleura and pleural effusion at that time patient underwent chest tube placement was subsequently discharged patient was treated for hydrothorax at that time. Patient may have empyema this time. Pulmonology was consulted from ER and I'm also consulting cardio thoracic surgery for possible VATS procedure for loculated pleural effusion area patient was also coming of some shortness of breath secondary to the pleural effusion unable to take deep breath. Review of Systems REVIEW OF SYSTEMS: CONSTITUTIONAL: No fever, no malaise, no fatigue. HEENT: No recent visual problems or hearing problems. Denied any sore throat. CARDIOVASCULAR: No orthopnea, PND, no palpitations, no syncope. PULMONARY: As described in HPI GASTROINTESTINAL: No diarrhea, no nausea, no vomiting, no abdominal pain. Normoactive bowel sounds. NEUROLOGICAL: No headaches, no weakness, no numbness. HEMATOLOGICAL: Denies any bleeding or petechiae. GENITOURINARY: Denies any burning micturition, frequency, or urgency. MUSCULOSKELETAL/RHEUMATOLOGICAL: Denies any joint pain, swelling, or any muscle pain. ENDOCRINE: Denies any polyuria or polydipsia. The rest of the 14-point review of systems is negative. Past Medical History Past Medical History: Hyperlipidemia, Liver Disease, Respiratory Disorder, Thyroid Disorder Additional Past Medical History / Comment(s): RIGHT PNEUMOTHORAX WITH 01/2017 SURGERY-HAD CHEST TUBE, KIDNEY STONES, FATTY LIVER, OPTIC MIGRAINE HEADACHES, HYPOTHYROID. History of Any Multi-Drug Resistant Organisms: None Reported Past Surgical History: Hysterectomy, Tonsillectomy Additional Past Surgical History / Comment(s): 02/01/2017 Nephrolitotomy w/ nephrostomy tube insertion, 02/07/17 NEPHROSCOPY, MULTIPLE LITHOSTRIPSIES/STENTS , R OOPHORECTOMY R/T CYST, COLONOSCOPY-NORMAL. Past Anesthesia/Blood Transfusion Reactions: Motion Sickness, Postoperative Nausea & Vomiting (PONV) Smoking Status: Never smoker - Past Family History Sister(s) Family Medical History: Cancer Additional Family Medical History / Comment(s): 2 sisters and 1 brother with history of EtOH. Brother(s) Additional Family Medical History / Comment(s): Brother had a history of depression, EtOH and drug abuse and committed suicide at a young age. Mother Family Medical History: Cancer, Coronary Artery Disease (CAD) Additional Family Medical History / Comment(s): BREAST CANCER, CABG. MOTHER AT THE AGE OF 58YRS. SHE WAS A HEAVY SMOKER. Father Family Medical History: Coronary Artery Disease (CAD) Additional Family Medical History / Comment(s): FATHER AT THE AGE OF 52 YRS FROM A [place]. HE WAS A HEAVY SMOKER. Medications and Allergies Home Medications Medication Instructions Recorded Confirmed Type PARoxetine [Paxil] 20 mg PO QAM 01/22/15 03/01/17 History Simvastatin [Simvastatin] 20 mg PO HS 01/22/15 03/01/17 History Levothyroxine Sodium [Synthroid] 100 mcg PO DAILY 02/01/17 03/01/17 History LORazepam [Ativan] 1 mg PO TID PRN #30 tab 02/09/17 03/01/17 Rx Potassium Citrate [Urocit-K] 30 meq PO BID 02/09/17 03/01/17 History Prochlorperazine [Compazine] 10 mg PO Q6H PRN #30 tab 02/09/17 03/01/17 Rx Ibuprofen [Motrin] 600 mg PO Q6HR PRN #20 tab 02/22/17 03/01/17 Rx Hydrocodone/Acetaminophen [Canadian 1 tab PO Q4HR PRN 03/01/17 03/01/17 History 5-325] Allergies Allergy/AdvReac Type Severity Reaction Status Date / Time amoxicillin Allergy Rash/Hives Verified 03/01/17 06:49 Iodinated Contrast- Oral and Allergy Rash/Hives Verified 03/01/17 06:49 IV Dye iodine Allergy Rash/Hives Verified 03/01/17 06:49 atorvastatin calcium AdvReac ACHY Verified 03/01/17 06:49 [From Lipitor] MUSCLES. Physical Exam Vitals: Vital Signs Temp Pulse Resp BP Pulse Ox 03/01/17 07:42 96 13 98 03/01/17 07:26 90 03/01/17 07:17 92 11 L 03/01/17 07:15 97.5 F L 90 11 L 95/58 97 03/01/17 06:24 97.2 F L 103 H 14 90/54 94 L 03/01/17 02:33 99.3 F 107 H 22 126/70 97 Intake and Output 02/28/17 03/01/17 03/01/17 22:59 06:59 14:59 Other: Weight 56.699 kg PHYSICAL EXAMINATION: GENERAL: The patient is alert and oriented x3, not in any acute distress. Well developed, well nourished. HEENT: Pupils are round and equally reacting to light. EOMI. No scleral icterus. No conjunctival pallor. Normocephalic, atraumatic. No pharyngeal erythema. No thyromegaly. CARDIOVASCULAR: S1 and S2 present. No murmurs, rubs, or gallops. PULMONARY: Chest is clear to auscultation, no wheezing or crackles. ABDOMEN: Soft, nontender, nondistended, normoactive bowel sounds. No palpable organomegaly. MUSCULOSKELETAL: No joint swelling or deformity. EXTREMITIES: No cyanosis, clubbing, or pedal edema. NEUROLOGICAL: Gross neurological examination did not reveal any focal deficits. SKIN: No rashes. Results CBC & Chem 7: 03/01/17 02:56 03/01/17 02:56 Labs: Abnormal Lab Results - Last 24 Hours (Table) 03/01/17 03/01/17 03/01/17 Range/Units 02:56 02:56 04:37 RBC 3.42 L (3.80-5.40) m/uL Hgb 10.8 L (11.4-16.0) gm/dL Hct 30.7 L (34.0-46.0) % Sodium 136 L (137-145) mmol/L Potassium 3.4 L (3.5-5.1) mmol/L Carbon Dioxide 19 L (22-30) mmol/L Glucose 107 H (74-99) mg/dL Phosphorus 1.8 L (2.5-4.5) mg/dL Ur Leukocyte Esterase Trace H (Negative) Urine WBC 6 H (0-5) /hpf Urine Mucus Rare H (None) /hpf Thrombosis Risk Factor Assmnt - Choose All That Apply Any of the Below Risk Factors Present?: Yes Each Factor Represents 1 point: Age 41-60 years Other Risk Factors: No Other congenital or acquired thrombophilia - If yes, enter type in comment: No Thrombosis Risk Factor Assessment Total Risk Factor Score: 1 Thrombosis Risk Factor Assessment Level: Low Risk Assessment and Plan Plan: #1 loculated pleural effusion, possibility of empyema with fever and sepsis secondary to that although patient does not have any leukocytosis patient will be started on cefepime and vancomycin blood cultures will be obtained, thoracic surgery will be consulted pulmonary was consulted from ER. #2 recent hydrothorax. #3 hyperlipidemia #4 hypothyroidism #5 depression For above-mentioned chronic medical medical problems patient will be started on her home medications. Pain management with Canadian and morphine 4 mg every 4 for breakthrough pain.
[2017-03-01] MEDS: IPRATROPIUM-ALBUTEROL 3 ML NEB INHALATION SCH ×4 (12:21→23:03)
[2017-03-01] MEDS: LORazepam 1 MG TAB PO PRN (12:30)
[2017-03-01] MEDS: MORPHINE SULFATE 4 MG/ML SYRINGE IVP PRN ×2 (12:30→16:40)
--- NOTE | 2017-03-01 12:30 | P.GSCN ---
History of Present Illness Consult date: 03/01/17 History of present illness: The patient is a 56-year-old female well known to me for her present pulmonary problem. The patient was admitted with a pleural effusion on the right, shortness of breath, pleuritis and perhaps some fever. Her problem dates back to a percutaneous nephrostolithotomy to multiple stones in her right kidney causing her pain proximally 3-4 weeks ago. She had a second look nephroscopy and in the postoperative period she was found to be short of breath. A chest x- ray showed that her right hemithorax was marian out. This is due to fluid. Dr. Shin of thoracic surgery placed a chest tube for 24 hours to drain the fluid. The fluid was not infected. She seemed to recuperate adequately. He was discharged home but has been slow to recuperate at home. She has had intermittent pain, shortness of breath and fatigue. She was in the emergency room approximately week ago and a right pleural effusion was identified but her labs were normal. Yesterday she developed increasing chest pain and a fever of 104 taken by herself. She came to the emergency room. Her vital signs are stable. Her chest x-ray showed the persistent effusion. Her urine was clear. White blood cells were normal. He was admitted to the hospital and has been placed on antibiotics. She has been afebrile with stable vital signs. [facility] medicine and thoracic surgery been asked to see her. She had a double-J catheter removed approximately a week ago and has done well from that. Review of Systems - Constitutional Reports fatigue, Reports fever - Respiratory Reports as per HPI - Genitourinary Genitourinary: Reports as per HPI Past Medical History Past Medical History: Hyperlipidemia, Liver Disease, Respiratory Disorder, Thyroid Disorder Additional Past Medical History / Comment(s): RIGHT PNEUMOTHORAX WITH 01/2017 SURGERY-HAD CHEST TUBE, KIDNEY STONES, FATTY LIVER, OPTIC MIGRAINE HEADACHES, HYPOTHYROID. History of Any Multi-Drug Resistant Organisms: None Reported Past Surgical History: Hysterectomy, Tonsillectomy Additional Past Surgical History / Comment(s): 02/01/2017 Nephrolitotomy w/ nephrostomy tube insertion, 02/07/17 NEPHROSCOPY, MULTIPLE LITHOSTRIPSIES/STENTS , R OOPHORECTOMY R/T CYST, COLONOSCOPY-NORMAL. Past Anesthesia/Blood Transfusion Reactions: Motion Sickness, Postoperative Nausea & Vomiting (PONV) Smoking Status: Never smoker - Past Family History Sister(s) Family Medical History: Cancer Additional Family Medical History / Comment(s): 2 sisters and 1 brother with history of EtOH. Brother(s) Additional Family Medical History / Comment(s): Brother had a history of depression, EtOH and drug abuse and committed suicide at a young age. Mother Family Medical History: Cancer, Coronary Artery Disease (CAD) Additional Family Medical History / Comment(s): BREAST CANCER, CABG. MOTHER AT THE AGE OF 58YRS. SHE WAS A HEAVY SMOKER. Father Family Medical History: Coronary Artery Disease (CAD) Additional Family Medical History / Comment(s): FATHER AT THE AGE OF 52 YRS FROM [place]. HE WAS A HEAVY SMOKER. Medications and Allergies Home Medications Medication Instructions Recorded Confirmed Type PARoxetine [Paxil] 20 mg PO QAM 01/22/15 03/01/17 History Simvastatin [Simvastatin] 20 mg PO HS 01/22/15 03/01/17 History Levothyroxine Sodium [Synthroid] 100 mcg PO DAILY 02/01/17 03/01/17 History LORazepam [Ativan] 1 mg PO TID PRN #30 tab 02/09/17 03/01/17 Rx Potassium Citrate [Urocit-K] 30 meq PO BID 02/09/17 03/01/17 History Prochlorperazine [Compazine] 10 mg PO Q6H PRN #30 tab 02/09/17 03/01/17 Rx Ibuprofen [Motrin] 600 mg PO Q6HR PRN #20 tab 02/22/17 03/01/17 Rx Hydrocodone/Acetaminophen [Orrum 1 tab PO Q4HR PRN 03/01/17 03/01/17 History 5-325] Allergies Allergy/AdvReac Type Severity Reaction Status Date / Time amoxicillin Allergy Rash/Hives Verified 03/01/17 06:49 Iodinated Contrast- Oral and Allergy Rash/Hives Verified 03/01/17 06:49 IV Dye iodine Allergy Rash/Hives Verified 03/01/17 06:49 atorvastatin calcium AdvReac ACHY Verified 03/01/17 06:49 [From Lipitor] MUSCLES. Surgical - Exam Vital Signs Temp Pulse Resp BP Pulse Ox 99.3 F 107 H 22 126/70 97 03/01/17 02:33 03/01/17 02:33 03/01/17 02:33 03/01/17 02:33 03/01/17 02:33 - General well developed, well nourished, no distress - ENT no hearing loss - Neck trachea midline - Respiratory normal expansion, normal respiratory effort - Cardiovascular Rhythm: regular - Abdomen Abdomen: soft, non tender - Neurologic normal coordination, normal sensation - Musculoskeletal normal posture - Psychiatric oriented to time, oriented to person, oriented to place, speech is normal, memory intact Results - Labs 03/01/17 02:56 03/01/17 02:56 Abnormal Lab Results - Last 24 Hours (Table) 03/01/17 03/01/17 03/01/17 Range/Units 02:56 02:56 04:37 RBC 3.42 L (3.80-5.40) m/uL Hgb 10.8 L (11.4-16.0) gm/dL Hct 30.7 L (34.0-46.0) % Sodium 136 L (137-145) mmol/L Potassium 3.4 L (3.5-5.1) mmol/L Carbon Dioxide 19 L (22-30) mmol/L Glucose 107 H (74-99) mg/dL Phosphorus 1.8 L (2.5-4.5) mg/dL Ur Leukocyte Esterase Trace H (Negative) Urine WBC 6 H (0-5) /hpf Urine Mucus Rare H (None) /hpf Microbiology - Last 24 Hours (Table) 03/01/17 04:37 Urine Culture - Preliminary Urine,Voided Diabetes panel 03/01/17 Range/Units 02:56 Sodium 136 L (137-145) mmol/L Potassium 3.4 L (3.5-5.1) mmol/L Chloride 106 (98-107) mmol/L Carbon Dioxide 19 L (22-30) mmol/L BUN 15 (7-17) mg/dL Creatinine 0.93 (0.52-1.04) mg/dL Glucose 107 H (74-99) mg/dL Calcium 9.5 (8.4-10.2) mg/dL AST 14 (14-36) U/L ALT 22 (9-52) U/L Alkaline Phosphatase 85 (38-126) U/L Total Protein 6.8 (6.3-8.2) g/dL Albumin 3.8 (3.5-5.0) g/dL Calcium panel 03/01/17 Range/Units 02:56 Calcium 9.5 (8.4-10.2) mg/dL Phosphorus 1.8 L (2.5-4.5) mg/dL Albumin 3.8 (3.5-5.0) g/dL Pituitary panel 03/01/17 Range/Units 02:56 Sodium 136 L (137-145) mmol/L Potassium 3.4 L (3.5-5.1) mmol/L Chloride 106 (98-107) mmol/L Carbon Dioxide 19 L (22-30) mmol/L BUN 15 (7-17) mg/dL Creatinine 0.93 (0.52-1.04) mg/dL Glucose 107 H (74-99) mg/dL Calcium 9.5 (8.4-10.2) mg/dL Adrenal panel 03/01/17 Range/Units 02:56 Sodium 136 L (137-145) mmol/L Potassium 3.4 L (3.5-5.1) mmol/L Chloride 106 (98-107) mmol/L Carbon Dioxide 19 L (22-30) mmol/L BUN 15 (7-17) mg/dL Creatinine 0.93 (0.52-1.04) mg/dL Glucose 107 H (74-99) mg/dL Calcium 9.5 (8.4-10.2) mg/dL Total Bilirubin 0.6 (0.2-1.3) mg/dL AST 14 (14-36) U/L ALT 22 (9-52) U/L Alkaline Phosphatase 85 (38-126) U/L Total Protein 6.8 (6.3-8.2) g/dL Albumin 3.8 (3.5-5.0) g/dL Assessment and Plan Plan: Impression: Right hydrothorax status post right percutaneous nephrostolithotomy. Status post right chest tube. Chest pain shortness, shortness of breath, fever by history. Recommendations: Pulmonary medicine and thoracic surgery have been consulted. The question is whether this is an empyema or just persistent hydrothorax. From a urologic standpoint I do not think there are any other issues however I will continue to follow with you.
--- NOTE | 2017-03-01 13:27 | P.CNPUL ---
History of Present Illness Consult date: 03/01/17 Reason for consult: dyspnea, chest pain History of present illness: 56-year-old female patient, who is coming in for pain along the right side of the chest. The patient reports that the pain was present since she had a complication of a previously inserted percutaneous nephrostomy tube as part of a treatment of multiple right-sided kidney stones. Note that back then, the patient developed complete opacification of the right lung following the removal of the nephrostomy tube. Based on that, general surgery inserted a chest tube and there was a complete response with complete reexpansion of the right lung and evacuation of a right-sided pleural effusion. The chest tube was removed and the patient was discharged home. Nevertheless the patient continued to have pain on of along the right chest area radiating to the back. She also had a bout of temperature yesterday of 104.0F. For that reason she came into the emergency department. Chest x-ray showed a small right-sided pleural effusion. Based on that the patient a CAT scan of the chest that showed no evidence of any pulmonary embolism. It showed a located right-sided pleural effusion and the posterior right lung base along with compressive atelectasis. The amount of fluid is [id number] in size and nothing compared to what she had earlier. Noted the patient had a double-J catheter inserted in the right kidney that was also removed a week ago. Her current urinalysis is negative for any ongoing infection. She has no cough. No sputum production. No hemoptysis. Review of Systems Constitutional: Reports fatigue, Reports weakness Eyes: denies blurred vision, denies bulging eye, denies decreased vision Ears: deny: decreased hearing, ear discharge, earache Ears, nose, mouth and throat: Denies headache, Denies sore throat Cardiovascular: Reports chest pain, Reports dyspnea on exertion Respiratory: Reports dyspnea Gastrointestinal: Denies abdominal pain, Denies diarrhea, Denies nausea, Denies vomiting Genitourinary: Reports kidney stones Musculoskeletal: Reports as per HPI Musculoskeletal: absent: ankle pain, ankle stiffness, ankle swelling Integumentary: Denies pruritus, Denies rash Neurological: Reports as per HPI Psychiatric: Denies anxiety, Denies depression Endocrine: Denies fatigue, Denies weight change Hematologic/Lymphatic: Reports as per HPI Allergic/Immunologic: Reports as per HPI Past Medical History Past Medical History: Hyperlipidemia, Liver Disease, Respiratory Disorder, Thyroid Disorder Additional Past Medical History / Comment(s): Right-sided hydropneumothorax post nephrostomy tube insertion and removal treated with a chest tube insertion in January 2017, nephrolithiasis, migraines, hypothyroidism, fatty liver History of Any Multi-Drug Resistant Organisms: None Reported Past Surgical History: Hysterectomy, Tonsillectomy Additional Past Surgical History / Comment(s): 02/01/2017 Nephrolitotomy w/ nephrostomy tube insertion, 02/07/17 NEPHROSCOPY, MULTIPLE LITHOSTRIPSIES/STENTS , R OOPHORECTOMY R/T CYST, COLONOSCOPY-NORMAL. Past Anesthesia/Blood Transfusion Reactions: Motion Sickness, Postoperative Nausea & Vomiting (PONV) Smoking Status: Never smoker - Past Family History Sister(s) Family Medical History: Cancer Additional Family Medical History / Comment(s): 2 sisters and 1 brother with history of EtOH. Brother(s) Additional Family Medical History / Comment(s): Brother had a history of depression, EtOH and drug abuse and committed suicide at a young age. Mother Family Medical History: Cancer, Coronary Artery Disease (CAD) Additional Family Medical History / Comment(s): BREAST CANCER, CABG. MOTHER AT THE AGE OF 58YRS. SHE WAS A HEAVY SMOKER. Father Family Medical History: Coronary Artery Disease (CAD) Additional Family Medical History / Comment(s): FATHER AT THE AGE OF 52 YRS FROM A [place]. HE WAS A HEAVY SMOKER. Medications and Allergies Home Medications Medication Instructions Recorded Confirmed Type PARoxetine [Paxil] 20 mg PO QAM 01/22/15 03/01/17 History Simvastatin [Simvastatin] 20 mg PO HS 01/22/15 03/01/17 History Levothyroxine Sodium [Synthroid] 100 mcg PO DAILY 02/01/17 03/01/17 History LORazepam [Ativan] 1 mg PO TID PRN #30 tab 02/09/17 03/01/17 Rx Potassium Citrate [Urocit-K] 30 meq PO BID 02/09/17 03/01/17 History Prochlorperazine [Compazine] 10 mg PO Q6H PRN #30 tab 02/09/17 03/01/17 Rx Ibuprofen [Motrin] 600 mg PO Q6HR PRN #20 tab 02/22/17 03/01/17 Rx Hydrocodone/Acetaminophen [[place] 1 tab PO Q4HR PRN 03/01/17 03/01/17 History 5-325] Allergies Allergy/AdvReac Type Severity Reaction Status Date / Time amoxicillin Allergy Rash/Hives Verified 03/01/17 06:49 Iodinated Contrast- Oral and Allergy Rash/Hives Verified 03/01/17 06:49 IV Dye iodine Allergy Rash/Hives Verified 03/01/17 06:49 atorvastatin calcium AdvReac ACHY Verified 03/01/17 06:49 [From Lipitor] MUSCLES. Physical Exam Vitals: Vital Signs Temp Pulse Resp BP Pulse Ox 03/01/17 12:32 86 03/01/17 12:24 88 03/01/17 07:42 96 13 98 03/01/17 07:26 90 03/01/17 07:17 92 11 L 03/01/17 07:15 97.5 F L 90 11 L 95/58 97 03/01/17 06:24 97.2 F L 103 H 14 90/54 94 L 03/01/17 02:33 99.3 F 107 H 22 126/70 97 Intake and Output 02/28/17 03/01/17 03/01/17 22:59 06:59 14:59 Other: Weight 56.699 kg Gen. appearance the patient is calm and comfortable likely distress.Head exam was generally normal. There was no scleral icterus or corneal arcus. Mucous membranes were moist.Neck was supple and without jugular venous distension, thyromegaly, or carotid bruits. Carotids were easily palpable bilaterally. There was no adenopathy. Lung sounds are diminished in the right lung base compared to the left. Breasts of the record otherwise within normal limits.Cardiac exam revealed the PMI to be normally situated and sized. The rhythm was regular and no extrasystoles were noted during several minutes of auscultation. The first and second heart sounds were normal and physiologic splitting of the second heart sound was noted. There were no murmurs, rubs, clicks, or gallops.Abdominal exam revealed normal bowel sounds. The abdomen was soft, non-tender, and without masses, organomegaly, or appreciable enlargement of the abdominal aorta.Examination of the extremities revealed easily palpable radial, femoral and pedal pulses. There was no cyanosis, clubbing or edema. Skin is within normal limits and there is no cellulitis or any wounds or ulcers. Skeletal examination is within normal limits without any injuries or deformities or arthritis. Neurologic exam is within normal and the patient has awake and alert and there is no focal neurological deficit. Results - Laboratory Findings CBC and BMP: 03/01/17 02:56 03/01/17 02:56 PT/INR, D-dimer PT 10.7 sec (9.0-12.0) 03/01/17 02:56 INR 1.1 (<1.2) 03/01/17 02:56 Abnormal lab findings: Abnormal Labs 03/01/17 03/01/17 03/01/17 02:56 02:56 04:37 RBC 3.42 L Hgb 10.8 L Hct 30.7 L Sodium 136 L Potassium 3.4 L Carbon Dioxide 19 L Glucose 107 H Phosphorus 1.8 L Ur Leukocyte Esterase Trace H Urine WBC 6 H Urine Mucus Rare H - Diagnostic Findings Chest x-ray: image reviewed CT scan - chest: image reviewed Assessment and Plan Plan: Assessment 1 loculated right sided pleural effusion/fluid is located in the right lung base associated with some compressive atelectasis. This is most likely a residual of previous pleural effusion that developed at the time of insertion and removal of a nephrostomy tube. Rule out an underlyinginfection specially with her ongoing chest pain and fever. 2 history of a right-sided hydropneumothorax post right sided percutaneous nephrolithotomy tube insertion and removal 3 nephrolithiasis with previous lithotripsy, double-J tube insertion, and previous nephrostomy tube insertion 4 fatty liver 5 migraine 6 hypothyroidism Plan I reviewed the CAT scan of the chest. The pleural effusion is small and loculated in the right lung base. I think it's reasonable to drain the fluid out and analyze the fluid for any infection. This will be needed to rule out anyinfection specially with her ongoing symptoms of fever and chest pain. We' ll consult interventional radiology for ultrasound-guided thoracentesis of the right-sided pleural effusion. This will be discussed with interventional radiology. Meanwhile continue the current antibiotic coverage which included a combination of cefepime and vancomycin. We'll follow.
--- NOTE | 2017-03-01 14:09 | P.GSCN ---
<Zachary Tate - Last Filed: 03/01/17 13:28> History of Present Illness Consult date: 03/01/17 Reason for Consult: Recurrent right pleural effusion Requesting physician: Kavon Hurtado History of present illness: This is a 56-year-old female patient who is followed by Dr. Michael Solorzano an outpatient basis. She has a history of multiple medical problems including a history of right renal calculi, hyperlipidemia, hypothyroidism, history of depression, migraine headaches, and history of bronchitis. The patient is a teacher, she had complaints of feeling exhausted for the whole day yesterday while at school. She reports she had complaints of fever, chills, nausea without any vomiting. She did have some complaints of shortness of breath and pain to her right chest when taking a deep breathing or when speaking long sentences. During the evening the patient took a hot bath and went to bed feeling slightly better. The patient woke from sleep around 1 AM and reports having a fever of 104.4F. She felt hot, diaphoretic and dehydrated. Subsequently she was brought to the emergency department here at [facility] by her sister. A 12-lead EKG was completed which showed normal sinus rhythm heart rate 96. A 2 view chest x-ray was completed which demonstrated a stable small right pleural effusion, and for further evaluation a computed tomography scan of her chest was completed which redemonstrated a small/moderate size loculated right pleural effusion. The has a history on 02/01/2017 undergoing an outpatient percutaneous nephrolithotomy performed by Dr. Lyels. Subsequently on 02/04/2017 the patient underwent a secondary nephroscopy, secondary nephrolithotomy laser, placement of antegrade 6 x 26 double-J catheter. Postoperatively the patient developed some shortness of breath and tachycardia, a chest x-ray was completed which demonstrated a right large hydrothorax. During that stay the patient had a right-sided chest tube placed with hydrothorax evacuated and complete reexpansion of her lung. The right chest tube was removed on 02/05/2017 the patient was discharged home. Due to the patient's presenting symptoms, history of right hydrothorax and her computed tomography scan results Dr. Manzano from cardiothoracic surgery was consulted. Review of Systems A 14 point review of systems was completed and was negative except as mentioned in HPI. Past Medical History Past Medical History: Hyperlipidemia, Liver Disease, Respiratory Disorder, Thyroid Disorder Additional Past Medical History / Comment(s): Right-sided hydropneumothorax post nephrostomy tube insertion and removal treated with a chest tube insertion in January 2017, nephrolithiasis, migraines, hypothyroidism, fatty liver History of Any Multi-Drug Resistant Organisms: None Reported Past Surgical History: Hysterectomy, Tonsillectomy Additional Past Surgical History / Comment(s): 02/01/2017 Nephrolitotomy w/ nephrostomy tube insertion, 02/07/17 NEPHROSCOPY, MULTIPLE LITHOSTRIPSIES/STENTS , R OOPHORECTOMY R/T CYST, COLONOSCOPY-NORMAL. Right-sided pleural chest tube placed on 02/04/2017 Past Anesthesia/Blood Transfusion Reactions: Motion Sickness, Postoperative Nausea & Vomiting (PONV) Past Psychological History: Depression Smoking Status: Never smoker Past Alcohol Use History: None Reported Past Drug Use History: None Reported - Past Family History Sister(s) Family Medical History: Cancer Additional Family Medical History / Comment(s): 2 sisters and 1 brother with history of EtOH. Brother(s) Additional Family Medical History / Comment(s): Brother had a history of depression, EtOH and drug abuse and committed suicide at a young age. Mother Family Medical History: Cancer, Coronary Artery Disease (CAD) Additional Family Medical History / Comment(s): BREAST CANCER, CABG. MOTHER AT THE AGE OF 58YRS. SHE WAS A HEAVY SMOKER. Father Family Medical History: Coronary Artery Disease (CAD) Additional Family Medical History / Comment(s): FATHER AT THE AGE OF 52 YRS FROM [place]. HE WAS A HEAVY SMOKER. Medications and Allergies Home Medications Medication Instructions Recorded Confirmed Type PARoxetine [Paxil] 20 mg PO QAM 01/22/15 03/01/17 History Simvastatin [Simvastatin] 20 mg PO HS 01/22/15 03/01/17 History Levothyroxine Sodium [Synthroid] 100 mcg PO DAILY 02/01/17 03/01/17 History LORazepam [Ativan] 1 mg PO TID PRN #30 tab 02/09/17 03/01/17 Rx Potassium Citrate [Urocit-K] 30 meq PO BID 02/09/17 03/01/17 History Prochlorperazine [Compazine] 10 mg PO Q6H PRN #30 tab 02/09/17 03/01/17 Rx Ibuprofen [Motrin] 600 mg PO Q6HR PRN #20 tab 02/22/17 03/01/17 Rx Hydrocodone/Acetaminophen [[place] 1 tab PO Q4HR PRN 03/01/17 03/01/17 History 5-325] Allergies Allergy/AdvReac Type Severity Reaction Status Date / Time amoxicillin Allergy Rash/Hives Verified 03/01/17 06:49 Iodinated Contrast- Oral and Allergy Rash/Hives Verified 03/01/17 06:49 IV Dye iodine Allergy Rash/Hives Verified 03/01/17 06:49 atorvastatin calcium AdvReac ACHY Verified 03/01/17 06:49 [From Lipitor] MUSCLES. Surgical - Exam Vital Signs Temp Pulse Resp BP Pulse Ox 99.3 F 107 H 22 126/70 97 03/01/17 02:33 03/01/17 02:33 03/01/17 02:33 03/01/17 02:33 03/01/17 02:33 - General Pain to her right chest with deep breathing. well developed, well nourished, no distress - Eyes PERRL, normal ocular movement - ENT normal pinna, normal nares, normal mucosa, no hearing loss, no congestion - Neck No lymphadenopathy. no masses, no bruits, trachea midline, no venous distension - Respiratory Respirations are symmetrical and nonlabored. Lungs sounds are essentially clear throughout, diminished bilateral bases right greater than left. Oxygen saturations are 98% on 2 L nasal cannula. - Cardiovascular Regular rhythm and rate. S1 and S2 present, negative for S3, gallop or murmur. No edema present. - Abdomen No organomegaly. Abdomen: soft, non tender, bowel sounds (Active to all 4 abdominal quadrants.) - Genitourinary Deferred - Rectum Deferred - Integumentary no rash, no growths, no abnormal pigmentation - Neurologic normal coordination, normal sensation - Musculoskeletal normal gait, normal posture - Psychiatric oriented to time, oriented to person, oriented to place, speech is normal, memory intact Results - Labs 03/01/17 02:56 03/01/17 02:56 Abnormal Lab Results - Last 24 Hours (Table) 03/01/17 03/01/17 03/01/17 Range/Units 02:56 02:56 04:37 RBC 3.42 L (3.80-5.40) m/uL Hgb 10.8 L (11.4-16.0) gm/dL Hct 30.7 L (34.0-46.0) % Sodium 136 L (137-145) mmol/L Potassium 3.4 L (3.5-5.1) mmol/L Carbon Dioxide 19 L (22-30) mmol/L Glucose 107 H (74-99) mg/dL Phosphorus 1.8 L (2.5-4.5) mg/dL Ur Leukocyte Esterase Trace H (Negative) Urine WBC 6 H (0-5) /hpf Urine Mucus Rare H (None) /hpf Microbiology - Last 24 Hours (Table) 03/01/17 04:37 Urine Culture - Preliminary Urine,Voided Diabetes panel 03/01/17 Range/Units 02:56 Sodium 136 L (137-145) mmol/L Potassium 3.4 L (3.5-5.1) mmol/L Chloride 106 (98-107) mmol/L Carbon Dioxide 19 L (22-30) mmol/L BUN 15 (7-17) mg/dL Creatinine 0.93 (0.52-1.04) mg/dL Glucose 107 H (74-99) mg/dL Calcium 9.5 (8.4-10.2) mg/dL AST 14 (14-36) U/L ALT 22 (9-52) U/L Alkaline Phosphatase 85 (38-126) U/L Total Protein 6.8 (6.3-8.2) g/dL Albumin 3.8 (3.5-5.0) g/dL Calcium panel 03/01/17 Range/Units 02:56 Calcium 9.5 (8.4-10.2) mg/dL Phosphorus 1.8 L (2.5-4.5) mg/dL Albumin 3.8 (3.5-5.0) g/dL Pituitary panel 03/01/17 Range/Units 02:56 Sodium 136 L (137-145) mmol/L Potassium 3.4 L (3.5-5.1) mmol/L Chloride 106 (98-107) mmol/L Carbon Dioxide 19 L (22-30) mmol/L BUN 15 (7-17) mg/dL Creatinine 0.93 (0.52-1.04) mg/dL Glucose 107 H (74-99) mg/dL Calcium 9.5 (8.4-10.2) mg/dL Adrenal panel 03/01/17 Range/Units 02:56 Sodium 136 L (137-145) mmol/L Potassium 3.4 L (3.5-5.1) mmol/L Chloride 106 (98-107) mmol/L Carbon Dioxide 19 L (22-30) mmol/L BUN 15 (7-17) mg/dL Creatinine 0.93 (0.52-1.04) mg/dL Glucose 107 H (74-99) mg/dL Calcium 9.5 (8.4-10.2) mg/dL Total Bilirubin 0.6 (0.2-1.3) mg/dL AST 14 (14-36) U/L ALT 22 (9-52) U/L Alkaline Phosphatase 85 (38-126) U/L Total Protein 6.8 (6.3-8.2) g/dL Albumin 3.8 (3.5-5.0) g/dL - Imaging Chest x-ray: report reviewed, image reviewed CT scan - chest: report reviewed, image reviewed EKG: image reviewed Assessment and Plan (1) Right-sided chest wall pain Status: Acute (2) Pleural effusion, right Status: Acute (3) Depression Status: Acute (4) History of depression Status: Acute (5) Hyperlipidemia Status: Acute (6) Hypothyroid Status: Acute (7) Renal calculus, right Status: Acute Plan: The patient was seen and examined. Her chart and diagnostics were reviewed. The case will be discussed with Dr. Manzano for further recommendations. Pulmonary management per Dr. Fragoso recommendations, interventional radiology has been consult at for ultrasound-guided thoracentesis of the right sided pleural effusion. Thank you Dr. Hurtado for this consult and we look for to working with you in the care of your patient. Time with Patient: Greater than 30 <Александр Manzano - Last Filed: 03/01/17 16:03> Surgical - Exam Vital Signs Temp Pulse Resp BP Pulse Ox 99.3 F 107 H 22 126/70 97 03/01/17 02:33 03/01/17 02:33 03/01/17 02:33 03/01/17 02:33 03/01/17 02:33 Results - Labs 03/01/17 02:56 03/01/17 02:56 Abnormal Lab Results - Last 24 Hours (Table) 03/01/17 03/01/17 03/01/17 Range/Units 02:56 02:56 04:37 RBC 3.42 L (3.80-5.40) m/uL Hgb 10.8 L (11.4-16.0) gm/dL Hct 30.7 L (34.0-46.0) % Sodium 136 L (137-145) mmol/L Potassium 3.4 L (3.5-5.1) mmol/L Carbon Dioxide 19 L (22-30) mmol/L Glucose 107 H (74-99) mg/dL Phosphorus 1.8 L (2.5-4.5) mg/dL Ur Leukocyte Esterase Trace H (Negative) Urine WBC 6 H (0-5) /hpf Urine Mucus Rare H (None) /hpf Microbiology - Last 24 Hours (Table) 03/01/17 04:37 Urine Culture - Preliminary Urine,Voided Diabetes panel 03/01/17 Range/Units 02:56 Sodium 136 L (137-145) mmol/L Potassium 3.4 L (3.5-5.1) mmol/L Chloride 106 (98-107) mmol/L Carbon Dioxide 19 L (22-30) mmol/L BUN 15 (7-17) mg/dL Creatinine 0.93 (0.52-1.04) mg/dL Glucose 107 H (74-99) mg/dL Calcium 9.5 (8.4-10.2) mg/dL AST 14 (14-36) U/L ALT 22 (9-52) U/L Alkaline Phosphatase 85 (38-126) U/L Total Protein 6.8 (6.3-8.2) g/dL Albumin 3.8 (3.5-5.0) g/dL Calcium panel 03/01/17 Range/Units 02:56 Calcium 9.5 (8.4-10.2) mg/dL Phosphorus 1.8 L (2.5-4.5) mg/dL Albumin 3.8 (3.5-5.0) g/dL Pituitary panel 03/01/17 Range/Units 02:56 Sodium 136 L (137-145) mmol/L Potassium 3.4 L (3.5-5.1) mmol/L Chloride 106 (98-107) mmol/L Carbon Dioxide 19 L (22-30) mmol/L BUN 15 (7-17) mg/dL Creatinine 0.93 (0.52-1.04) mg/dL Glucose 107 H (74-99) mg/dL Calcium 9.5 (8.4-10.2) mg/dL Adrenal panel 03/01/17 Range/Units 02:56 Sodium 136 L (137-145) mmol/L Potassium 3.4 L (3.5-5.1) mmol/L Chloride 106 (98-107) mmol/L Carbon Dioxide 19 L (22-30) mmol/L BUN 15 (7-17) mg/dL Creatinine 0.93 (0.52-1.04) mg/dL Glucose 107 H (74-99) mg/dL Calcium 9.5 (8.4-10.2) mg/dL Total Bilirubin 0.6 (0.2-1.3) mg/dL AST 14 (14-36) U/L ALT 22 (9-52) U/L Alkaline Phosphatase 85 (38-126) U/L Total Protein 6.8 (6.3-8.2) g/dL Albumin 3.8 (3.5-5.0) g/dL Assessment and Plan Plan: Patient examined and chart reviewed. Agree with PAD CUTTER note as documented. Patient well known to our service status post urologic surgery with resultant hydropneumothorax. Chest tube was placed at that time. Chest tube was discontinued within 48 hours. Patient complains of persistent right chest pain since the operation. Computed tomography scan shows moderate right hydrothorax with mild to moderate atelectasis of the right lower lobe. Recommendation at this time is to proceed with interventional radiologic drainage of the right pleural effusion with thoracentesis and subsequent pigtail catheter placement. My presumption is this is a inflammatory effusion secondary to a inflammatory pleuritis secondary to the previous diaphragmatic iatrogenic injury. Pleural fluid should be evaluated for a chemistry and culture upon drainage. We will start the patient on an anti-inflammatory regimen due to the presumptive diagnosis of pleural inflammation. Further recommendations will be given following evaluation of the pleural fluid and drainage.
[2017-03-01] MEDS: MAGNESIUM SULFATE-D5W PMX 1 GM in DEXTROSE/WATER 1 100ML.BAG IVPB SCH ×2 (14:15→16:14)
[2017-03-01] MEDS: CEFEPIME 1 GM in SODIUM CHLORIDE 0.9% 50 ML IVPB SCH (15:40)
[2017-03-01] MEDS: KETOROLAC 30 MG/ML 1 ML VIAL IVP SCH (17:53)
[2017-03-01] MEDS: VANCOMYCIN 1,000 MG in SODIUM CHLORIDE 0.9% 250 ML IVPB SCH (21:40)
[2017-03-01] MEDS ORDERED: IPRATROPIUM-ALBUTEROL 3 ML NEB INHALATION PRN (23:04)
[2017-03-02] MEDS: CEFEPIME 1 GM in SODIUM CHLORIDE 0.9% 50 ML IVPB SCH ×3 (00:06→20:06)
[2017-03-02] MEDS: KETOROLAC 30 MG/ML 1 ML VIAL IVP SCH ×4 (00:06→18:34)
[2017-03-02] MEDS: LEVOTHYROXINE 100 MCG TAB PO SCH (05:41)
[2017-03-02] MEDS: IPRATROPIUM-ALBUTEROL 3 ML NEB INHALATION SCH ×4 (07:55→19:28)
[2017-03-02 08:23] LABS: Anion Gap 7 mmol/L; Blood Urea Nitrogen 15 mg/dL (7-17); Calcium 8.6 mg/dL (8.4-10.2); Carbon Dioxide 21 mmol/L (22-30); Chloride 114 mmol/L (98-107); Glucose 102 mg/dL (74-99); Magnesium 2.4 mg/dL (1.6-2.3); Non-African American GFR(MDRD) >60 (>60 ml/min/1.73 sqM); Potassium 4.5 mmol/L (3.5-5.1); Sodium 142 mmol/L (137-145)
[2017-03-02 08:36] LABS: CH 30.2; CHCM 32.6; HCT 27.6 % (34.0-46.0); HDW 3.85; Hypochromasia Moderate; MCH 30.7 pg (25.0-35.0); MCV 93.1 fL (80.0-100.0); Mean Platelet Volume 6.7; Poikilocytosis Slight; RBC 2.96 m/uL (3.80-5.40); RDW 12.7 % (11.5-15.5); WBC 9.2 k/uL (3.8-10.6)
[2017-03-02 08:38] LABS: HGB 9.1 gm/dL (11.4-16.0)
--- NOTE | 2017-03-02 09:18 | P.PN ---
Subjective Principal diagnosis: Recurrent right pleural effusion. History of right renal calculi, hyperlipidemia, hypothyroidism, depression, migraine headaches, bronchitis. Recent history of right-sided hydropneumothorax post-nephrostomy tube insertion and removal Patient currently sitting up in bed in no acute distress. Denies pain except with deep inspiration, denies shortness of breath. No new complaints. Objective - Vital Signs Vital signs: Vital Signs Temp 98.2 F 03/02/17 07:00 Pulse 83 03/02/17 08:09 Resp 20 03/02/17 08:00 BP 100/73 03/02/17 07:00 Pulse Ox 97 03/02/17 07:54 Intake & Output 03/01/17 03/02/17 03/02/17 18:59 06:59 18:59 Intake Total 350 250 Balance 350 250 Weight 56.699 kg 56.699 kg Intake: Intake, IV Titration 350 250 Amount Magnesium Sulfate-D5w Pmx 100 1 gm In Dextrose/Water 1 100ml.bag @ 100 mls/hr IVPB Q1H [facility] Rx#: [id number] Vancomycin 1,000 mg In 250 250 Sodium Chloride 0.9% 250 ml @ 125 mls/hr IVPB ONCE ONE Rx#:[id number] Other: Voiding Method Toilet Toilet Toilet # Voids 2 1 1 - Constitutional General appearance: Present: cooperative, no acute distress - Respiratory Details: Lungs sounds which bilaterally. Respirations even, nonlabored. Currently remains on room air with oxygen saturation 97%. - Cardiovascular Details: S1, S2 present. Regular rate and rhythm. Palpable pulses bilaterally. No edema present. - Gastrointestinal Gastrointestinal Comment(s): Abdomen soft, nontender, nondistended. Active bowel sounds 4 quadrants. Patient is currently nothing by mouth for procedure today. - Genitourinary Genitourinary Comment(s): Continues to void clear, yellow urine. - Neurologic Neurologic: Present: CNII-XII intact - Musculoskeletal Musculoskeletal: Present: gait normal, strength equal bilaterally - Psychiatric Psychiatric: Present: A&O x's 3, appropriate affect, intact judgment & insight - Allied health notes Allied health notes reviewed: nursing - Labs CBC & Chem 7: 03/02/17 07:00 03/02/17 07:00 Labs: Abnormal Lab Results - Last 24 Hours (Table) 03/02/17 03/02/17 Range/Units 07:00 07:00 RBC 2.96 L (3.80-5.40) m/uL Hgb 9.1 L D (11.4-16.0) gm/dL Hct 27.6 L (34.0-46.0) % Chloride 114 H (98-107) mmol/L Carbon Dioxide 21 L (22-30) mmol/L Glucose 102 H (74-99) mg/dL Magnesium 2.4 H (1.6-2.3) mg/dL Microbiology - Last 24 Hours (Table) 03/01/17 04:37 Urine Culture - Preliminary Urine,Voided Assessment and Plan (1) Hydropneumothorax Status: Acute (2) Pleural effusion, right Status: Acute (3) Right-sided chest wall pain Status: Acute (4) History of bronchitis Status: Acute (5) History of depression Status: Acute (6) Hyperlipidemia Status: Acute (7) Hypothyroid Status: Acute Plan: 1. Patient scheduled to go for right-sided pigtail catheter placement today by interventional radiology. 2. Encourage incentive spirometry use. 3. Increase activity, ambulate in hallway. 4. GI/DVT prophylaxis. 5. Medical comorbidities to be managed by primary care service. 6. Bronchodilators, antibiotics per pulmonary services. 7. Continue Toradol, Ultram for pain control as well as anti-inflammatory properties. 8. More recommendations as patient progresses. Time with Patient: Greater than 30
[2017-03-02] MEDS: HYDROmorphone 1 MG/ML 1 ML SYRINGE IVP PRN ×2 (10:59→11:40)
[2017-03-02] MEDS: ENOXAPARIN 40 MG/0.4 ML SYRINGE SQ SCH (12:04)
[2017-03-02] MEDS: PARoxetine 20 MG TAB PO SCH (12:04)
--- NOTE | 2017-03-02 13:00 | CT ---
EXAMINATION TYPE: CT chest tube insertion DATE OF EXAM: 03/02/2017 COMPARISON: NONE HISTORY: Chest tube insertion requested for loculated pleural effusion CT DLP: 625 mGycm The procedure is discussed with the patient, the risks, complications, benefits and alternatives, wer e discussed and any questions were answered. Informed consent was obtained. The patient is placed p ba on the CT table, prepped and draped in the usual sterile fashion. Preliminary imaging suggested possible hemothorax given the hyperdensity of the pleural fluid on nonc ontrast exam. Case discussed with referring clinician. Request was for placement of drainage catheter . Utilizing a 22-gauge Chiba needle access into the pleural spur was achieved. This would also 0.035 gu idewire and subsequently serial dilation 8 Tajik with placement of an 8 Tajik drainage catheter.. All elements of maximal barrier and sterile technique were utilized. The patient remained stable thr oughout the procedure. Case discussed with referring clinical clinician immediately post procedure. I ncluding the suspect a reduced yield of a hemothorax with the cutaneous drainage catheter and small p neumothorax. IMPRESSION: 1. Successful CT guided chest tube insertion.
--- NOTE | 2017-03-02 14:13 | P.PN ---
Subjective 56-year-old female patient, who is coming in for pain along the right side of the chest. The patient reports that the pain was present since she had a complication of a previously inserted percutaneous nephrostomy tube as part of a treatment of multiple right-sided kidney stones. Note that back then, the patient developed complete opacification of the right lung following the removal of the nephrostomy tube. Based on that, general surgery inserted a chest tube and there was a complete response with complete reexpansion of the right lung and evacuation of a right-sided pleural effusion. The chest tube was removed and the patient was discharged home. Nevertheless the patient continued to have pain on of along the right chest area radiating to the back. She also had a bout of temperature yesterday of 104.0F. For that reason she came into the emergency department. Chest x-ray showed a small right-sided pleural effusion. Based on that the patient a CAT scan of the chest that showed no evidence of any pulmonary embolism. It showed a located right-sided pleural effusion and the posterior right lung base along with compressive atelectasis. The amount of fluid is [id number] in size and nothing compared to what she had earlier. Noted the patient had a double-J catheter inserted in the right kidney that was also removed a week ago. Her current urinalysis is negative for any ongoing infection. She has no cough. No sputum production. No hemoptysis. On 03/02/2017 the patient was seen in follow-up in the case was also discussed with cardiothoracic surgery. The agreement is that the patient will need to have her ultrasound-guided thoracentesis and possibly a pigtail catheter insertion to completely evacuate the right-sided pleural effusion and decide on treatment accordingly. The patient is willing to undergo the procedure. She has no specific complaints for now. No leukocytosis. She is afebrile for now. Antibiotic coverage is essentially the same. Objective - Vital Signs Vital signs: Vital Signs Temp 98.2 F 03/02/17 07:00 Pulse 83 03/02/17 08:09 Resp 20 03/02/17 08:00 BP 100/73 03/02/17 07:00 Pulse Ox 97 03/02/17 07:54 Intake & Output 03/01/17 03/02/17 03/02/17 18:59 06:59 18:59 Intake Total 350 250 Balance 350 250 Weight 56.699 kg 56.699 kg Intake: Intake, IV Titration 350 250 Amount Magnesium Sulfate-D5w Pmx 100 1 gm In Dextrose/Water 1 100ml.bag @ 100 mls/hr IVPB Q1H [facility] Rx#: [id number] Vancomycin 1,000 mg In 250 250 Sodium Chloride 0.9% 250 ml @ 125 mls/hr IVPB ONCE ONE Rx#:[id number] Other: Voiding Method Toilet Toilet Toilet # Voids 2 1 1 - Exam Gen. appearance the patient is calm and comfortable likely distress.Head exam was generally normal. There was no scleral icterus or corneal arcus. Mucous membranes were moist.Neck was supple and without jugular venous distension, thyromegaly, or carotid bruits. Carotids were easily palpable bilaterally. There was no adenopathy. Lung sounds are diminished in the right lung base compared to the left. Breasts of the record otherwise within normal limits.Cardiac exam revealed the PMI to be normally situated and sized. The rhythm was regular and no extrasystoles were noted during several minutes of auscultation. The first and second heart sounds were normal and physiologic splitting of the second heart sound was noted. There were no murmurs, rubs, clicks, or gallops.Abdominal exam revealed normal bowel sounds. The abdomen was soft, non-tender, and without masses, organomegaly, or appreciable enlargement of the abdominal aorta.Examination of the extremities revealed easily palpable radial, femoral and pedal pulses. There was no cyanosis, clubbing or edema. Skin is within normal limits and there is no cellulitis or any wounds or ulcers. Skeletal examination is within normal limits without any injuries or deformities or arthritis. Neurologic exam is within normal and the patient has awake and alert and there is no focal neurological deficit. - Labs CBC & Chem 7: 03/02/17 07:00 03/02/17 07:00 Labs: Abnormal Lab Results - Last 24 Hours (Table) 03/02/17 03/02/17 Range/Units 07:00 07:00 RBC 2.96 L (3.80-5.40) m/uL Hgb 9.1 L D (11.4-16.0) gm/dL Hct 27.6 L (34.0-46.0) % Chloride 114 H (98-107) mmol/L Carbon Dioxide 21 L (22-30) mmol/L Glucose 102 H (74-99) mg/dL Magnesium 2.4 H (1.6-2.3) mg/dL Microbiology - Last 24 Hours (Table) 03/01/17 04:37 Urine Culture - Preliminary Urine,Voided Assessment and Plan Plan: Assessment 1 loculated right sided pleural effusion/fluid is located in the right lung base associated with some compressive atelectasis. This is most likely a residual of previous pleural effusion that developed at the time of insertion and removal of a nephrostomy tube. Rule out an underlyinginfection specially with her ongoing chest pain and fever. The plan as discussed with the various consultants is to proceed with a INR guided thoracentesis and pigtail catheter insertion depending on the fluid characteristics. 2 history of a right-sided hydropneumothorax post right sided percutaneous nephrolithotomy tube insertion and removal 3 nephrolithiasis with previous lithotripsy, double-J tube insertion, and previous nephrostomy tube insertion 4 fatty liver 5 migraine 6 hypothyroidism Plan I reviewed the CAT scan of the chest. I discussed the case with Dr. Александр Manzano. I discussed the case with nephrology. We'll proceed with INR guided thoracentesis and possibly a pigtail catheter insertion. Based on the fluid characteristics further recommendations are to follow. Patient is hemodynamically stable at this point.
[2017-03-02] MEDS: VANCOMYCIN 1,000 MG in SODIUM CHLORIDE 0.9% 250 ML IVPB SCH (15:30)
[2017-03-02] MEDS: MORPHINE SULFATE 4 MG/ML SYRINGE IVP PRN ×2 (16:26→21:51)
--- NOTE | 2017-03-02 16:52 | P.PN ---
Subjective Progress note being dictated for Dr. Hurtado. Interval history:Patient is a very pleasant 56-year-old female came in with compensative right-sided chest pain pleuritic in nature and about 9 x 10 in severity and patient had a fever of 104 last night because of which patient came in to ER and underwent a CAT scan of the chest which showed loculated pleural effusion on the right side. There is moderate amount of effusion patient was given cefepime was started on vancomycin patient will be resumed on cefepime. Patient during her last hospitalization about 20-25 days ago had a urological procedure which was complicated by injury to the pleura and pleural effusion at that time patient underwent chest tube placement was subsequently discharged patient was treated for hydrothorax at that time. Patient may have empyema this time. Pulmonology was consulted from ER and I'm also consulting cardio thoracic surgery for possible VATS procedure for loculated pleural effusion area patient was also coming of some shortness of breath secondary to the pleural effusion unable to take deep breath. 03/02/2017. Maintained on nebulized bronchodilators, antibiotics of cefepime and vancomycin. Continues on tramadol, Ketorolac. Complains of pain with deep inspiration. Evaluated by cardiothoracic surgery, scheduled for right-sided pigtail catheter placement with interventional radiology, this morning. Afebrile. Denies chest pain, palpitations or increased shortness of breath. Objective - Vital Signs Vital signs: Vital Signs Temp 98.2 F 03/02/17 16:34 Pulse 72 03/02/17 16:34 Resp 16 03/02/17 16:34 BP 134/70 03/02/17 16:34 Pulse Ox 98 03/02/17 16:34 Intake & Output 03/01/17 03/02/17 03/02/17 18:59 06:59 18:59 Intake Total 350 250 360 Balance 350 250 360 Weight 56.699 kg 56.699 kg Intake: Intake, IV Titration 350 250 Amount Magnesium Sulfate-D5w Pmx 100 1 gm In Dextrose/Water 1 100ml.bag @ 100 mls/hr IVPB Q1H [facility] Rx#: [id number] Vancomycin 1,000 mg In 250 250 Sodium Chloride 0.9% 250 ml @ 125 mls/hr IVPB ONCE ONE Rx#:[id number] Oral 360 Other: Voiding Method Toilet Toilet Toilet # Voids 2 1 3 - Exam GENERAL: The patient is alert and oriented x3, not in any acute distress. Well developed, well nourished. HEENT: Pupils are round and equally reacting to light. EOMI. No scleral icterus. No conjunctival pallor. Normocephalic, atraumatic. No pharyngeal erythema. No thyromegaly. CARDIOVASCULAR: S1 and S2 present. No murmurs, rubs, or gallops. PULMONARY: Right lung base diminished, otherwise clear to auscultation, no wheezing or crackles. ABDOMEN: Soft, nontender, nondistended, normoactive bowel sounds. No palpable organomegaly. MUSCULOSKELETAL: No joint swelling or deformity. EXTREMITIES: No cyanosis, clubbing, or pedal edema. NEUROLOGICAL: Gross neurological examination did not reveal any focal deficits. SKIN: No rashes. - Labs CBC & Chem 7: 03/02/17 07:00 03/02/17 07:00 Labs: Abnormal Lab Results - Last 24 Hours (Table) 03/02/17 03/02/17 Range/Units 07:00 07:00 RBC 2.96 L (3.80-5.40) m/uL Hgb 9.1 L D (11.4-16.0) gm/dL Hct 27.6 L (34.0-46.0) % Chloride 114 H (98-107) mmol/L Carbon Dioxide 21 L (22-30) mmol/L Glucose 102 H (74-99) mg/dL Magnesium 2.4 H (1.6-2.3) mg/dL Microbiology - Last 24 Hours (Table) 03/02/17 11:30 Fungal Culture - Preliminary Pleural Fluid 03/02/17 11:30 Body Fluid Culture - Preliminary Pleural Fluid 03/02/17 11:30 Anaerobic Culture - Preliminary Pleural Fluid 03/02/17 11:30 Acid Fast Bacilli Culture - Preliminary Pleural Fluid 03/01/17 12:21 Blood Culture - Preliminary Blood No Growth after 24 hours 03/01/17 12:16 Blood Culture - Preliminary Blood No Growth after 24 hours 03/01/17 04:37 Urine Culture - Preliminary Urine,Voided Group D Enterococcus Assessment and Plan Plan: #1 loculated pleural effusion, possibility of empyema with fever and sepsis secondary to that although patient does not have any leukocytosis patient will be started on cefepime and vancomycin blood cultures will be obtained, thoracic surgery will be consulted pulmonary was consulted from ER. #2 recent hydrothorax. #3 hyperlipidemia #4 hypothyroidism #5 depression Plan: Continue on current medication regime , ultram, Toradol, nebulized bronchodilators ,monitoring and symptomatic treatment. Awaiting right pigtail catheter placement. Aggressive pulmonary toileting. Follow closely with cardiothoracic surgery and pulmonary. The impression and plan of care has been dictated as directed. : I performed a H&P examination of this patient and discussed the same with the dictator. I agree with the dictator's note. Any additional findings/opinions/ etc. will be noted.
[2017-03-02 17:26] LABS: RBC, Body Fluid 5800 /uL
[2017-03-02] MEDS: LORazepam 1 MG TAB PO PRN (21:51)
[2017-03-02] MEDS: FAMOTIDINE 20 MG TAB PO SCH (21:51)
[2017-03-03] MEDS: CEFEPIME 1 GM in SODIUM CHLORIDE 0.9% 50 ML IVPB SCH ×3 (00:38→15:49)
[2017-03-03] MEDS: KETOROLAC 30 MG/ML 1 ML VIAL IVP SCH ×4 (00:39→17:38)
[2017-03-03] MEDS: IPRATROPIUM-ALBUTEROL 3 ML NEB INHALATION SCH ×4 (08:30→20:42)
[2017-03-03] MEDS: ENOXAPARIN 40 MG/0.4 ML SYRINGE SQ SCH (08:48)
[2017-03-03] MEDS: FAMOTIDINE 20 MG TAB PO SCH ×2 (08:49→21:08)
[2017-03-03] MEDS: VANCOMYCIN 1,000 MG in SODIUM CHLORIDE 0.9% 250 ML IVPB SCH ×2 (08:49→21:08)
[2017-03-03] MEDS: PARoxetine 20 MG TAB PO SCH (08:49)
[2017-03-03] MEDS: LEVOTHYROXINE 100 MCG TAB PO SCH (08:49)
--- NOTE | 2017-03-03 08:50 | XR ---
EXAMINATION TYPE: XR chest 1V portable DATE OF EXAM: 03/03/2017 COMPARISON: 03/01/2017 HISTORY: Weakness TECHNIQUE: Single frontal view of the chest is obtained. FINDINGS: Right pigtail thoracostomy tube projects over the right cardiophrenic angle. Small known l oculated pleural effusion appears somewhat smaller than on the prior exam. Left basilar atelectasis i s redemonstrated. New pneumothorax is identified with 1.8 cm pleural separation at the lung apex (les s than 20%). Cardiomediastinal silhouette is within normal limits. Osseous structures appear intact. IMPRESSION: New right apical pneumothorax with 1.8 cm in apical pleural separation with right thorac ostomy tube in place at the cardiophrenic angle and minimal decrease in the known right loculated ple ural effusion. A [employer] message has been communicated to Kailyn Ramsey via the [employer] Critical Result system on 03/03/2017 8:48 AM, Message ID [id number].
[2017-03-03] MEDS: MORPHINE SULFATE 4 MG/ML SYRINGE IVP PRN (09:39)
[2017-03-03] MEDS: LORazepam 1 MG TAB PO PRN (09:39)
--- NOTE | 2017-03-03 12:16 | P.PN ---
<Kailyn Ramsey - Last Filed: 03/03/17 12:15> Subjective Principal diagnosis: Recurrent right pleural effusion. History of right renal calculi, hyperlipidemia, hypothyroidism, depression, migraine headaches, bronchitis. Recent history of right-sided hydropneumothorax post-nephrostomy tube insertion and removal POD #1 placement of right-sided pigtail catheter by interventional radiology for loculated pleural effusion. Patient currently sitting up in bed in no acute distress. No new complaints. Objective - Vital Signs Vital signs: Vital Signs Temp 98.1 F 03/03/17 07:55 Pulse 68 03/03/17 08:44 Resp 18 03/03/17 07:55 BP 114/71 03/03/17 07:55 Pulse Ox 97 03/03/17 08:32 Intake & Output 03/02/17 03/03/17 03/03/17 18:59 06:59 18:59 Intake Total 360 Balance 360 Intake: Oral 360 Other: Voiding Method Toilet Toilet # Voids 3 1 - Constitutional General appearance: Present: cooperative, no acute distress - Respiratory Details: Lungs sounds diminished bilaterally. Respirations even, nonlabored. Currently on room air with oxygen saturation 96%. Right pigtail catheter connected to atrium with waterseal. 200 mL drainage since placement. No air leak present. - Cardiovascular Details: S1, S2 present. Regular rate and rhythm. No edema present. Palpable pulses bilaterally. - Gastrointestinal Gastrointestinal Comment(s): Abdomen soft, nontender, nondistended. Active bowel sounds 4 quadrants. Tolerating diet. - Genitourinary Genitourinary Comment(s): Voiding clear, yellow urine. - Neurologic Neurologic: Present: CNII-XII intact - Musculoskeletal Musculoskeletal: Present: strength equal bilaterally - Psychiatric Psychiatric: Present: A&O x's 3, appropriate affect, intact judgment & insight - Allied health notes Allied health notes reviewed: nursing - Labs CBC & Chem 7: 03/02/17 07:00 03/02/17 07:00 Labs: Microbiology - Last 24 Hours (Table) 03/02/17 11:30 Acid Fast Bacilli Smear - Final Pleural Fluid Acid Fast Bacilli Culture - Preliminary 03/02/17 11:30 Gram Stain - Preliminary Pleural Fluid Body Fluid Culture - Preliminary 03/02/17 11:30 Fungal Culture - Preliminary Pleural Fluid 03/02/17 11:30 Anaerobic Culture - Preliminary Pleural Fluid 03/01/17 12:21 Blood Culture - Preliminary Blood No Growth after 24 hours 03/01/17 12:16 Blood Culture - Preliminary Blood No Growth after 24 hours 03/01/17 04:37 Urine Culture - Preliminary Urine,Voided Group D Enterococcus - Imaging and Cardiology Chest x-ray: report reviewed, image reviewed Assessment and Plan (1) Hydropneumothorax Status: Acute (2) Pleural effusion, right Status: Acute (3) Right-sided chest wall pain Status: Acute (4) History of bronchitis Status: Acute (5) History of depression Status: Acute (6) Hyperlipidemia Status: Acute (7) Hypothyroid Status: Acute Plan: 1. Patient had right-sided pigtail catheter placement yesterday by interventional radiology, connected to atrium. Will connected to -20 cm continuous wall suction secondary to pneumothorax demonstrated on this morning' s x-ray. 2. Will instill alteplase through pigtail catheter to break up the clot. 3. Encourage incentive spirometry use. 4. Increase activity, ambulate in hallway. May have chest tube off suction for a few minutes to ambulate in the hallway. 5. GI/DVT prophylaxis. 6. Medical comorbidities to be managed by primary care service. 7. Bronchodilators, antibiotics per pulmonary services. 8. Continue Toradol, Ultram for pain control as well as anti-inflammatory properties. 9. More recommendations as patient progresses. Time with Patient: Greater than 30 <Miguel Shin - Last Filed: 03/03/17 13:32> Objective - Vital Signs Vital signs: Vital Signs Temp 98.1 F 03/03/17 07:55 Pulse 70 03/03/17 12:21 Resp 18 03/03/17 07:55 BP 114/71 03/03/17 07:55 Pulse Ox 97 03/03/17 08:32 Intake & Output 03/02/17 03/03/17 03/03/17 18:59 06:59 18:59 Intake Total 360 Balance 360 Intake: Oral 360 Other: Voiding Method Toilet Toilet # Voids 3 1 1 - Labs CBC & Chem 7: 03/02/17 07:00 03/02/17 07:00 Labs: Microbiology - Last 24 Hours (Table) 03/02/17 11:30 Gram Stain - Preliminary Pleural Fluid Body Fluid Culture - Preliminary 03/02/17 11:30 Acid Fast Bacilli Smear - Final Pleural Fluid Acid Fast Bacilli Culture - Preliminary 03/02/17 11:30 Fungal Culture - Preliminary Pleural Fluid 03/02/17 11:30 Anaerobic Culture - Preliminary Pleural Fluid 03/01/17 12:21 Blood Culture - Preliminary Blood No Growth after 24 hours 03/01/17 12:16 Blood Culture - Preliminary Blood No Growth after 24 hours 03/01/17 04:37 Urine Culture - Preliminary Urine,Voided Group D Enterococcus Assessment and Plan Plan: The patient was seen and examined. I agree with the above assessment and plan. A right-sided pigtail catheter was placed yesterday by interventional radiology. There was approximately 210 cc in the atrium today. Chest x-ray reveals a persistent small right pleural effusion however there is also an apical pneumothorax. We did connect the drainage tube to suction. We will begin to instill alteplase through the pigtail catheter.
[2017-03-03] MEDS: ALTEPLASE 10 MG in SODIUM CHLORIDE 0.9% 100 ML IRRIGATION ONE ×2 (14:58→14:59)
--- NOTE | 2017-03-03 16:48 | P.PN ---
Subjective 56-year-old female patient, who is coming in for pain along the right side of the chest. The patient reports that the pain was present since she had a complication of a previously inserted percutaneous nephrostomy tube as part of a treatment of multiple right-sided kidney stones. Note that back then, the patient developed complete opacification of the right lung following the removal of the nephrostomy tube. Based on that, general surgery inserted a chest tube and there was a complete response with complete reexpansion of the right lung and evacuation of a right-sided pleural effusion. The chest tube was removed and the patient was discharged home. Nevertheless the patient continued to have pain on of along the right chest area radiating to the back. She also had a bout of temperature yesterday of 104.0F. For that reason she came into the emergency department. Chest x-ray showed a small right-sided pleural effusion. Based on that the patient a CAT scan of the chest that showed no evidence of any pulmonary embolism. It showed a located right-sided pleural effusion and the posterior right lung base along with compressive atelectasis. The amount of fluid is [id number] in size and nothing compared to what she had earlier. Noted the patient had a double-J catheter inserted in the right kidney that was also removed a week ago. Her current urinalysis is negative for any ongoing infection. She has no cough. No sputum production. No hemoptysis. On 03/02/2017 the patient was seen in follow-up in the case was also discussed with cardiothoracic surgery. The agreement is that the patient will need to have her ultrasound-guided thoracentesis and possibly a pigtail catheter insertion to completely evacuate the right-sided pleural effusion and decide on treatment accordingly. The patient is willing to undergo the procedure. She has no specific complaints for now. No leukocytosis. She is afebrile for now. Antibiotic coverage is essentially the same. On the patient has a pigtail catheter in her right hemithorax. A total of 200 mL of fluid was aspirated. No active drainage. Alteplase will be offered and instilled through the pleural space to control the drainage. Meanwhile the patient is doing well. Chest pain is still present although it has subsided considerably. No fever. No chills. No sweats. Discussed the case with cardiothoracic surgery and a follow-up CAT scan be obtained within the next 24 hours to assess response to this percutaneous drainage. Cultures from the pleural space fluid is still pending. Meanwhile the acid-fast 8 was negative and the fungal stains were negative and the Gram stain showed no microbial growth. Objective - Vital Signs Vital signs: Vital Signs Temp 100.4 F H 03/03/17 15:52 Pulse 93 03/03/17 15:52 Resp 18 03/03/17 15:52 BP 127/69 03/03/17 15:52 Pulse Ox 96 03/03/17 15:52 Intake & Output 03/02/17 03/03/17 03/03/17 18:59 06:59 18:59 Intake Total 360 120 Balance 360 120 Weight 56.699 kg Intake: Oral 360 120 Other: Voiding Method Toilet Toilet Toilet # Voids 3 1 4 - Exam Gen. appearance the patient is calm and comfortable likely distress.Head exam was generally normal. There was no scleral icterus or corneal arcus. Mucous membranes were moist.Neck was supple and without jugular venous distension, thyromegaly, or carotid bruits. Carotids were easily palpable bilaterally. There was no adenopathy. Lung sounds are diminished in the right lung base compared to the left. The patient has a pigtail catheter the posterior right chest area and this is connected to a Pleur-evac which has no evidence of any air leak. Breasts of the record otherwise within normal limits.Cardiac exam revealed the PMI to be normally situated and sized. The rhythm was regular and no extrasystoles were noted during several minutes of auscultation. The first and second heart sounds were normal and physiologic splitting of the second heart sound was noted. There were no murmurs, rubs, clicks, or gallops.Abdominal exam revealed normal bowel sounds. The abdomen was soft, non- tender, and without masses, organomegaly, or appreciable enlargement of the abdominal aorta.Examination of the extremities revealed easily palpable radial, femoral and pedal pulses. There was no cyanosis, clubbing or edema. Skin is within normal limits and there is no cellulitis or any wounds or ulcers. Skeletal examination is within normal limits without any injuries or deformities or arthritis. Neurologic exam is within normal and the patient has awake and alert and there is no focal neurological deficit. - Labs CBC & Chem 7: 03/02/17 07:00 03/02/17 07:00 Labs: Microbiology - Last 24 Hours (Table) 03/01/17 04:37 Urine Culture - Final Urine,Voided Enterococcus faecalis 03/01/17 12:21 Blood Culture - Preliminary Blood No Growth after 48 hours 03/01/17 12:16 Blood Culture - Preliminary Blood No Growth after 48 hours 03/02/17 11:30 Gram Stain - Preliminary Pleural Fluid Body Fluid Culture - Preliminary 03/02/17 11:30 Acid Fast Bacilli Smear - Final Pleural Fluid Acid Fast Bacilli Culture - Preliminary 03/02/17 11:30 Fungal Culture - Preliminary Pleural Fluid 03/02/17 11:30 Anaerobic Culture - Preliminary Pleural Fluid Assessment and Plan Plan: Assessment 1 loculated right sided pleural effusion/fluid is located in the right lung base associated with some compressive atelectasis. This is most likely a residual of previous pleural effusion that developed at the time of insertion and removal of a nephrostomy tube. Rule out an underlyinginfection specially with her ongoing chest pain and fever. A percutaneous pigtail catheter was inserted and evacuation of bloody effusion in the order of 2 50 mL was evacuated from the right lung. Cultures of been negative thus far. Alteplase will be instilled to the pleural space to enhance further drainage. Follow-up CAT scan in a.m. 2 history of a right-sided hydropneumothorax post right sided percutaneous nephrolithotomy tube insertion and removal 3 nephrolithiasis with previous lithotripsy, double-J tube insertion, and previous nephrostomy tube insertion 4 fatty liver 5 migraine 6 hypothyroidism Plan Proceed with infusion of alteplase into the right pleural space with a pigtail catheter. Monitor the output. Repeat CAT scan of the chest in a.m. Pulse ox on room air is 96%. No signs of any pleural space infection. Patient is doing well. Hemodynamically stable. Further, this is to follow based on the morning CAT scan results. Continue current antibiotics.
--- NOTE | 2017-03-03 17:04 | P.PN ---
Subjective Progress note being dictated for Dr. Hurtado. Interval history:Patient is a very pleasant 56-year-old female came in with compensative right-sided chest pain pleuritic in nature and about 9 x 10 in severity and patient had a fever of 104 last night because of which patient came in to ER and underwent a CAT scan of the chest which showed loculated pleural effusion on the right side. There is moderate amount of effusion patient was given cefepime was started on vancomycin patient will be resumed on cefepime. Patient during her last hospitalization about 20-25 days ago had a urological procedure which was complicated by injury to the pleura and pleural effusion at that time patient underwent chest tube placement was subsequently discharged patient was treated for hydrothorax at that time. Patient may have empyema this time. Pulmonology was consulted from ER and I'm also consulting cardio thoracic surgery for possible VATS procedure for loculated pleural effusion area patient was also coming of some shortness of breath secondary to the pleural effusion unable to take deep breath. 03/02/2017. Maintained on nebulized bronchodilators, antibiotics of cefepime and vancomycin. Continues on tramadol, Ketorolac. Complains of pain with deep inspiration. Evaluated by cardiothoracic surgery, scheduled for right-sided pigtail catheter placement with interventional radiology, this morning. Afebrile. Denies chest pain, palpitations or increased shortness of breath. 03/03 2017 maintained on cefepime and vancomycin .T-max 100.4 .status post placement of right-sided pigtail catheter via interventional radiology yesterday. Minimal output of 100 MLS. Suspect clotting with alteplase pending. States shortness of breath improved. Ambulating in hallway, tolerating exertion well. Complains of nausea. Denies chest pain, palpitations or increasing shortness of breath. Objective - Vital Signs Vital signs: Vital Signs Temp 100.4 F H 03/03/17 15:52 Pulse 93 03/03/17 15:52 Resp 18 03/03/17 15:52 BP 127/69 03/03/17 15:52 Pulse Ox 96 03/03/17 15:52 Intake & Output 03/02/17 03/03/17 03/03/17 18:59 06:59 18:59 Intake Total 360 120 Balance 360 120 Weight 56.699 kg Intake: Oral 360 120 Other: Voiding Method Toilet Toilet Toilet # Voids 3 1 4 - Exam GENERAL: The patient is alert and oriented x3, not in any acute distress. Well developed, well nourished. HEENT: Pupils are round and equally reacting to light. EOMI. No scleral icterus. No conjunctival pallor. Normocephalic, atraumatic. No pharyngeal erythema. No thyromegaly. CARDIOVASCULAR: S1 and S2 present. No murmurs, rubs, or gallops. PULMONARY: Right lung base diminished, otherwise clear to auscultation, no wheezing or crackles. Right pigtail catheter present. ABDOMEN: Soft, nontender, nondistended, normoactive bowel sounds. No palpable organomegaly. MUSCULOSKELETAL: No joint swelling or deformity. EXTREMITIES: No cyanosis, clubbing, or pedal edema. NEUROLOGICAL: Gross neurological examination did not reveal any focal deficits. SKIN: No rashes. - Labs CBC & Chem 7: 03/02/17 07:00 03/02/17 07:00 Labs: Microbiology - Last 24 Hours (Table) 03/01/17 04:37 Urine Culture - Final Urine,Voided Enterococcus faecalis 03/01/17 12:21 Blood Culture - Preliminary Blood No Growth after 48 hours 03/01/17 12:16 Blood Culture - Preliminary Blood No Growth after 48 hours 03/02/17 11:30 Gram Stain - Preliminary Pleural Fluid Body Fluid Culture - Preliminary 03/02/17 11:30 Acid Fast Bacilli Smear - Final Pleural Fluid Acid Fast Bacilli Culture - Preliminary 03/02/17 11:30 Fungal Culture - Preliminary Pleural Fluid 03/02/17 11:30 Anaerobic Culture - Preliminary Pleural Fluid Assessment and Plan Plan: #1 loculated pleural effusion, possibility of empyema with fever and sepsis, status post right pigtail catheter, alteplase pending. #2 recent hydrothorax. #3 hyperlipidemia #4 hypothyroidism #5 depression #6, possible acute UTI with Enterococcus faecalis Plan: Continue on current medication regime , ultram, Toradol, nebulized bronchodilators ,monitoring and symptomatic treatment. Alteplase pending.Aggressive pulmonary toileting. Follow closely with cardiothoracic surgery and pulmonary. Possible discharge home tomorrow. The impression and plan of care has been dictated as directed. : I performed a H&P examination of this patient and discussed the same with the dictator. I agree with the dictator's note. Any additional findings/opinions/ etc. will be noted.
[2017-03-03] MEDS: valACYclovir HCL 1,000 MG TABLET PO SCH (17:45)
[2017-03-03] MEDS ORDERED: valACYclovir HCL 1,000 MG TABLET PO SCH (21:00)
[2017-03-04] MEDS: KETOROLAC 30 MG/ML 1 ML VIAL IVP SCH ×5 (01:12→23:12)
[2017-03-04] MEDS: LORazepam 1 MG TAB PO PRN (01:13)
[2017-03-04] MEDS: CEFEPIME 1 GM in SODIUM CHLORIDE 0.9% 50 ML IVPB SCH ×4 (01:13→23:12)
[2017-03-04] MEDS: LEVOTHYROXINE 100 MCG TAB PO SCH (06:09)
--- NOTE | 2017-03-04 07:37 | XR ---
EXAMINATION TYPE: XR chest 1V portable DATE OF EXAM: 03/04/2017 COMPARISON: Prior chest x-ray 03/03/2017 HISTORY: Pneumothorax, chest tube TECHNIQUE: Single frontal view of the chest is obtained. FINDINGS: There is a tube present at the posterior costophrenic angle. Apical right-sided pneumothor ax shows a similar appearance. Cardiomediastinal silhouette, pulmonary vascularity and gagandeep not signi ficantly changed. Patient is rotated. There are overlying cardiac leads. Parenchymal density at the r ight lung base may reflect atelectasis or pneumonia. IMPRESSION: Similar findings to prior exam. Small apical pneumothorax. Right lower lobe atelectasis versus pneumonia, effusion.
[2017-03-04] MEDS: MORPHINE SULFATE 4 MG/ML SYRINGE IVP PRN ×2 (07:39→19:17)
--- NOTE | 2017-03-04 07:42 | P.PN ---
Subjective The patient continues to recuperate from the drainage of the hydrothorax on the right side. Pulmonary medicine and thoracic surgery are managing this care. Urologically she is stable. Objective - Vital Signs Vital signs: Vital Signs Temp 99.4 F 03/04/17 07:00 Pulse 83 03/04/17 07:00 Resp 17 03/04/17 07:00 BP 133/76 03/04/17 07:00 Pulse Ox 97 03/04/17 07:00 Intake & Output 03/03/17 03/04/17 03/04/17 18:59 06:59 18:59 Intake Total 120 200 Balance 120 200 Weight 56.699 kg Intake: Oral 120 200 Other: Voiding Method Toilet Toilet # Voids 4 1 - Labs CBC & Chem 7: 03/02/17 07:00 03/02/17 07:00 Labs: Microbiology - Last 24 Hours (Table) 03/01/17 04:37 Urine Culture - Final Urine,Voided Enterococcus faecalis 03/01/17 12:21 Blood Culture - Preliminary Blood No Growth after 48 hours 03/01/17 12:16 Blood Culture - Preliminary Blood No Growth after 48 hours 03/02/17 11:30 Gram Stain - Preliminary Pleural Fluid Body Fluid Culture - Preliminary 03/02/17 11:30 Acid Fast Bacilli Smear - Final Pleural Fluid Acid Fast Bacilli Culture - Preliminary
--- NOTE | 2017-03-04 07:50 | P.PN ---
Subjective Principal diagnosis: Recurrent right pleural effusion. History of right renal calculi, hyperlipidemia, hypothyroidism, depression, migraine headaches, bronchitis. Recent history of right-sided hydropneumothorax post-nephrostomy tube insertion and removal POD #2 placement of right-sided pigtail catheter by interventional radiology for loculated pleural effusion. Patient currently laying in bed in no acute distress. No new complaints. Alteplase instilled yesterday through pigtail catheter without significant drainage. Objective - Vital Signs Vital signs: Vital Signs Temp 99.4 F 03/04/17 07:00 Pulse 83 03/04/17 07:00 Resp 17 03/04/17 07:00 BP 133/76 03/04/17 07:00 Pulse Ox 97 03/04/17 07:00 Intake & Output 03/03/17 03/04/17 03/04/17 18:59 06:59 18:59 Intake Total 120 200 Balance 120 200 Weight 56.699 kg Intake: Oral 120 200 Other: Voiding Method Toilet Toilet # Voids 4 1 - Constitutional General appearance: Present: cooperative, no acute distress - Respiratory Details: Lungs sounds was bilaterally. Respirations even, nonlabored. Currently on room air oxygen saturation 98%. Right sided chest tube present to -20 cm wall suction, drained 70 mL dark fluid in the last 24 hours. - Cardiovascular Details: S1, S2 present. Regular rate and rhythm, normal sinus rhythm on telemetry. No edema present. Palpable pulses bilaterally. - Gastrointestinal Gastrointestinal Comment(s): Abdomen soft, nontender, nondistended. Active bowel sounds 4 quadrants. Tolerating diet. - Genitourinary Genitourinary Comment(s): Continues to void clear, yellow urine. - Neurologic Neurologic: Present: CNII-XII intact - Musculoskeletal Musculoskeletal: Present: gait normal, strength equal bilaterally - Psychiatric Psychiatric: Present: A&O x's 3, appropriate affect, intact judgment & insight - Allied health notes Allied health notes reviewed: nursing - Labs CBC & Chem 7: 03/02/17 07:00 03/02/17 07:00 Labs: Microbiology - Last 24 Hours (Table) 03/01/17 04:37 Urine Culture - Final Urine,Voided Enterococcus faecalis 03/01/17 12:21 Blood Culture - Preliminary Blood No Growth after 48 hours 03/01/17 12:16 Blood Culture - Preliminary Blood No Growth after 48 hours 03/02/17 11:30 Gram Stain - Preliminary Pleural Fluid Body Fluid Culture - Preliminary 03/02/17 11:30 Acid Fast Bacilli Smear - Final Pleural Fluid Acid Fast Bacilli Culture - Preliminary - Imaging and Cardiology Chest x-ray: report reviewed, image reviewed Assessment and Plan (1) Hydropneumothorax Status: Acute (2) Pleural effusion, right Status: Acute (3) Right-sided chest wall pain Status: Acute (4) History of bronchitis Status: Acute (5) History of depression Status: Acute (6) Hyperlipidemia Status: Acute (7) Hypothyroid Status: Acute Plan: 1. Patient had right-sided pigtail catheter placement by interventional radiology, connected to atrium. Continue -20 cm continuous wall suction secondary to pneumothorax. 2. Alteplase instilled through pigtail catheter to break up the clot yesterday. Will instill again today. 3. Patient to have CT of the chest today per pulmonology. 4. Encourage incentive spirometry use. 5. Increase activity, ambulate in hallway. May have chest tube off suction for a few minutes to ambulate in the hallway. 6. GI/DVT prophylaxis. 7. Medical comorbidities to be managed by primary care service. 8. Bronchodilators, antibiotics per pulmonary services. 9. Continue Toradol, Ultram for pain control as well as anti-inflammatory properties. 10. More recommendations as patient progresses. Time with Patient: Greater than 30
--- NOTE | 2017-03-04 08:43 | CT ---
EXAMINATION TYPE: CT chest wo con DATE OF EXAM: 03/04/2017 COMPARISON: 03/01/2017 HISTORY: chest tube/pleural effusion CT DLP: 174.60 mGycm. Automated Exposure Control for Dose Reduction was Utilized. TECHNIQUE: CT scan of the thorax is performed without IV contrast. FINDINGS: LUNGS: A chest tube on the right is noted which appears within a loculated pleural effusion. There is a suspected 7 mm pulmonary nodule noted. The amount of pleural fluid is stable from the previous exa m. There is somewhat hyperdense and may have a component of hemorrhage which was also noted on the pr evious exam. Hydropneumothorax measures approximately 10-15%. Subsegmental consolidation noted left. MEDIASTINUM: Lack of IV contrast is noted to limit evaluation for mediastinal and especially hilar ad enopathy. There are no definitive greater than 1 cm hilar or mediastinal lymph nodes. Tiny pericardia l effusion noted. OTHER: Multiple right-sided renal calculi are noted. IMPRESSION: 1. There is no interval change in the size of the loculated pleural effusion on the right with chest tube noted in. There is a 10-15% right-sided pneumothorax with no mediastinal deviation. 2. 7 mm pulmonary nodule on the right. Consider follow-up PET scan.
[2017-03-04] MEDS: ENOXAPARIN 40 MG/0.4 ML SYRINGE SQ SCH (08:55)
[2017-03-04] MEDS: valACYclovir HCL 1,000 MG TABLET PO SCH ×2 (08:56→20:11)
[2017-03-04] MEDS: FAMOTIDINE 20 MG TAB PO SCH ×2 (08:56→20:11)
[2017-03-04] MEDS: PARoxetine 20 MG TAB PO SCH (08:56)
[2017-03-04] MEDS: IPRATROPIUM-ALBUTEROL 3 ML NEB INHALATION SCH ×4 (09:33→20:17)
[2017-03-04 09:53] LABS: Anion Gap 10 mmol/L; Blood Urea Nitrogen 15 mg/dL (7-17); Calcium 9.4 mg/dL (8.4-10.2); Carbon Dioxide 21 mmol/L (22-30); Chloride 110 mmol/L (98-107); Glucose 89 mg/dL (74-99); Non-African American GFR(MDRD) >60 (>60 ml/min/1.73 sqM); Potassium 4.3 mmol/L (3.5-5.1); Sodium 141 mmol/L (137-145)
[2017-03-04] MEDS ORDERED: ALTEPLASE 10 MG in SODIUM CHLORIDE 0.9% 100 ML IRRIGATION ONE (10:00)
[2017-03-04] MEDS ORDERED: VANCOMYCIN TROUGH DUE 1 EACH MISC MISCELLANE ONE (13:00)
[2017-03-04] MEDS: VANCOMYCIN 1,000 MG in SODIUM CHLORIDE 0.9% 250 ML IVPB SCH (13:48)
--- NOTE | 2017-03-04 14:46 | P.PN ---
Subjective Progress note being dictated for Dr. Hurtado. Interval history:Patient is a very pleasant 56-year-old female came in with compensative right-sided chest pain pleuritic in nature and about 9 x 10 in severity and patient had a fever of 104 last night because of which patient came in to ER and underwent a CAT scan of the chest which showed loculated pleural effusion on the right side. There is moderate amount of effusion patient was given cefepime was started on vancomycin patient will be resumed on cefepime. Patient during her last hospitalization about 20-25 days ago had a urological procedure which was complicated by injury to the pleura and pleural effusion at that time patient underwent chest tube placement was subsequently discharged patient was treated for hydrothorax at that time. Patient may have empyema this time. Pulmonology was consulted from ER and I'm also consulting cardio thoracic surgery for possible VATS procedure for loculated pleural effusion area patient was also coming of some shortness of breath secondary to the pleural effusion unable to take deep breath. 03/02/2017. Maintained on nebulized bronchodilators, antibiotics of cefepime and vancomycin. Continues on tramadol, Ketorolac. Complains of pain with deep inspiration. Evaluated by cardiothoracic surgery, scheduled for right-sided pigtail catheter placement with interventional radiology, this morning. Afebrile. Denies chest pain, palpitations or increased shortness of breath. 03/03 2017 maintained on cefepime and vancomycin .T-max 100.4 .status post placement of right-sided pigtail catheter via interventional radiology yesterday. Minimal output of 100 MLS. Suspect clotting with alteplase pending. States shortness of breath improved. Ambulating in hallway, tolerating exertion well. Complains of nausea. Denies chest pain, palpitations or increasing shortness of breath. 03/04/2017 alteplase instilled through pigtail catheter yesterday, minimal drainage is morning. Scheduled for alteplase again today. Chest CT reporting no interval change in the right loculated pleural effusion size, 10-15% right- sided pneumothorax without mediastinal deviation, and 2.7 mm pulmonary nodule in the right. T-max 100.4. Pleural cytology reporting NO CYTOLOGICALLY MALIGNANT CELLS.. Complaints of nausea, denies chest pain, palpitations or increasing shortness of breath. Objective - Vital Signs Vital signs: Vital Signs Temp 99.4 F 03/04/17 07:00 Pulse 72 03/04/17 12:35 Resp 18 03/04/17 08:00 BP 133/76 03/04/17 07:00 Pulse Ox 97 03/04/17 09:33 Intake & Output 03/03/17 03/04/17 03/04/17 18:59 06:59 18:59 Intake Total 120 200 50 Balance 120 200 50 Weight 56.699 kg Intake: Intake, IV Titration 50 Amount Cefepime 1 gm In Sodium 50 Chloride 0.9% 50 ml @ 100 mls/hr IVPB Q8HR [facility] Rx# :[id number] Oral 120 200 Other: Voiding Method Toilet Toilet # Voids 4 1 - Exam GENERAL: The patient is alert and oriented x3, not in any acute distress. Well developed, well nourished. HEENT: Pupils are round and equally reacting to light. EOMI. No scleral icterus. No conjunctival pallor. Normocephalic, atraumatic. No pharyngeal erythema. No thyromegaly. CARDIOVASCULAR: S1 and S2 present. No murmurs, rubs, or gallops. PULMONARY: Right lung base diminished, otherwise clear to auscultation, no wheezing or crackles. Right pigtail catheter present. ABDOMEN: Soft, nontender, nondistended, normoactive bowel sounds. No palpable organomegaly. MUSCULOSKELETAL: No joint swelling or deformity. EXTREMITIES: No cyanosis, clubbing, or pedal edema. NEUROLOGICAL: Gross neurological examination did not reveal any focal deficits. SKIN: No rashes. - Labs CBC & Chem 7: 03/02/17 07:00 03/04/17 08:37 Labs: Abnormal Lab Results - Last 24 Hours (Table) 03/04/17 Range/Units 08:37 Chloride 110 H (98-107) mmol/L Carbon Dioxide 21 L (22-30) mmol/L Microbiology - Last 24 Hours (Table) 03/01/17 12:21 Blood Culture - Preliminary Blood No Growth after 72 hours 03/01/17 12:16 Blood Culture - Preliminary Blood No Growth after 72 hours 03/02/17 11:30 Gram Stain - Preliminary Pleural Fluid Body Fluid Culture - Preliminary 03/01/17 04:37 Urine Culture - Final Urine,Voided Enterococcus faecalis Assessment and Plan Plan: #1 loculated pleural effusion, possibility of empyema with fever and sepsis, status post right pigtail catheter, status post alteplase #2 recent hydrothorax. #3 hyperlipidemia #4 hypothyroidism #5 depression #6, possible acute UTI with Enterococcus faecalis Plan: Continue on current medication regime , ultram, Toradol, nebulized bronchodilators ,monitoring and symptomatic treatment. Alteplase to be repeated today, possibly tomorrow also..Aggressive pulmonary toileting. Follow closely with cardiothoracic surgery and pulmonary. The impression and plan of care has been dictated as directed. : I performed a H&P examination of this patient and discussed the same with the dictator. I agree with the dictator's note. Any additional findings/opinions/ etc. will be noted.
[2017-03-04] MEDS: ONDANSETRON 4 MG/2 ML VIAL IVP PRN (15:23)
[2017-03-04 15:54] VITALS: RESP 16
--- NOTE | 2017-03-04 16:26 | P.PN ---
Subjective 56-year-old female patient, who is coming in for pain along the right side of the chest. The patient reports that the pain was present since she had a complication of a previously inserted percutaneous nephrostomy tube as part of a treatment of multiple right-sided kidney stones. Note that back then, the patient developed complete opacification of the right lung following the removal of the nephrostomy tube. Based on that, general surgery inserted a chest tube and there was a complete response with complete reexpansion of the right lung and evacuation of a right-sided pleural effusion. The chest tube was removed and the patient was discharged home. Nevertheless the patient continued to have pain on of along the right chest area radiating to the back. She also had a bout of temperature yesterday of 104.0F. For that reason she came into the emergency department. Chest x-ray showed a small right-sided pleural effusion. Based on that the patient a CAT scan of the chest that showed no evidence of any pulmonary embolism. It showed a located right-sided pleural effusion and the posterior right lung base along with compressive atelectasis. The amount of fluid is [id number] in size and nothing compared to what she had earlier. Noted the patient had a double-J catheter inserted in the right kidney that was also removed a week ago. Her current urinalysis is negative for any ongoing infection. She has no cough. No sputum production. No hemoptysis. On 03/02/2017 the patient was seen in follow-up in the case was also discussed with cardiothoracic surgery. The agreement is that the patient will need to have her ultrasound-guided thoracentesis and possibly a pigtail catheter insertion to completely evacuate the right-sided pleural effusion and decide on treatment accordingly. The patient is willing to undergo the procedure. She has no specific complaints for now. No leukocytosis. She is afebrile for now. Antibiotic coverage is essentially the same. On the patient has a pigtail catheter in her right hemithorax. A total of 200 mL of fluid was aspirated. No active drainage. Alteplase will be offered and instilled through the pleural space to control the drainage. Meanwhile the patient is doing well. Chest pain is still present although it has subsided considerably. No fever. No chills. No sweats. Discussed the case with cardiothoracic surgery and a follow-up CAT scan be obtained within the next 24 hours to assess response to this percutaneous drainage. Cultures from the pleural space fluid is still pending. Meanwhile the acid-fast 8 was negative and the fungal stains were negative and the Gram stain showed no microbial growth. On 03/02/2017 the patient is being seen in follow-up. She underwent a alteplase treatment yesterday with minimal amount of drainage post treatment. I think output was in the order of 50-70 mL. The output is still bloody. A follow-up CAT scan of the chest was done this morning it showed no interval changes size of the located pleural effusion on the right. Questionable 10% right-sided pneumothorax is seen without any mediastinal radiation. Clinically the patient is still the same. She is not having any significant shortness of breath. She is resting comfortably in bed. The right chest is somewhat uncomfortable. A second treatment with alteplase will be done today. Objective - Vital Signs Vital signs: Vital Signs Temp 98.3 F 03/04/17 15:00 Pulse 80 03/04/17 15:00 Resp 16 03/04/17 16:00 BP 121/59 03/04/17 15:00 Pulse Ox 96 03/04/17 15:00 Intake & Output 03/03/17 03/04/17 03/04/17 18:59 06:59 18:59 Intake Total 120 200 50 Balance 120 200 50 Weight 56.699 kg Intake: Intake, IV Titration 50 Amount Cefepime 1 gm In Sodium 50 Chloride 0.9% 50 ml @ 100 mls/hr IVPB Q8HR [facility] Rx# :[id number] Oral 120 200 Other: Voiding Method Toilet Toilet Toilet # Voids 4 1 - Exam Gen. appearance the patient is calm and comfortable likely distress.Head exam was generally normal. There was no scleral icterus or corneal arcus. Mucous membranes were moist.Neck was supple and without jugular venous distension, thyromegaly, or carotid bruits. Carotids were easily palpable bilaterally. There was no adenopathy. Lung sounds are diminished in the right lung base compared to the left. The patient has a pigtail catheter the posterior right chest area and this is connected to a Pleur-evac which has no evidence of any air leak. Breasts of the record otherwise within normal limits.Cardiac exam revealed the PMI to be normally situated and sized. The rhythm was regular and no extrasystoles were noted during several minutes of auscultation. The first and second heart sounds were normal and physiologic splitting of the second heart sound was noted. There were no murmurs, rubs, clicks, or gallops.Abdominal exam revealed normal bowel sounds. The abdomen was soft, non- tender, and without masses, organomegaly, or appreciable enlargement of the abdominal aorta.Examination of the extremities revealed easily palpable radial, femoral and pedal pulses. There was no cyanosis, clubbing or edema. Skin is within normal limits and there is no cellulitis or any wounds or ulcers. Skeletal examination is within normal limits without any injuries or deformities or arthritis. Neurologic exam is within normal and the patient has awake and alert and there is no focal neurological deficit. - Labs CBC & Chem 7: 03/02/17 07:00 03/04/17 08:37 Labs: Abnormal Lab Results - Last 24 Hours (Table) 03/04/17 Range/Units 08:37 Chloride 110 H (98-107) mmol/L Carbon Dioxide 21 L (22-30) mmol/L Microbiology - Last 24 Hours (Table) 03/02/17 11:30 Anaerobic Culture - Preliminary Pleural Fluid 03/01/17 12:21 Blood Culture - Preliminary Blood No Growth after 72 hours 03/01/17 12:16 Blood Culture - Preliminary Blood No Growth after 72 hours 03/02/17 11:30 Gram Stain - Preliminary Pleural Fluid Body Fluid Culture - Preliminary 03/01/17 04:37 Urine Culture - Final Urine,Voided Enterococcus faecalis Assessment and Plan Plan: Assessment 1 loculated right sided pleural effusion/fluid is located in the right lung base associated with some compressive atelectasis. This is most likely a residual of previous pleural effusion that developed at the time of insertion and removal of a nephrostomy tube. A percutaneous pigtail catheter was inserted and evacuation of bloody effusion in the order of 250 mL was evacuated from the right lung. Cultures of been negative thus far. Alteplase was instilled with limited improvement in the drainage. A follow-up CAT scan of the chest showed no interval changes side of the loculated right-sided pleural effusion. A second alteplase treatment was done today. 2 history of a right-sided hydropneumothorax post right sided percutaneous nephrolithotomy tube insertion and removal 3 nephrolithiasis with previous lithotripsy, double-J tube insertion, and previous nephrostomy tube insertion 4 fatty liver 5 migraine 6 hypothyroidism Plan I think is can be no improvement in the drainage with alteplase treatment. In any rate the second she was given to this patient today. Repeat chest x-ray in the morning. I'm very much inclined to remove the chest tube tomorrow and let the patient he'll along without any further interventions. The patient is not having major symptomatology. She is not hypoxic patient is not having any shortness of breath. Her chest wall discomfort is variable. There is no evidence of any pleural space infection and I think it's reasonable to remove this chest tube within next 2448 hrs. to be followed up on outpatient basis. This will be discussed with the surgeon.
[2017-03-04] MEDS: DOCUSATE 100 MG CAP PO SCH (20:11)
[2017-03-05] MEDS ORDERED: VANCOMYCIN 1,000 MG in SODIUM CHLORIDE 0.9% 250 ML IVPB SCH ×2
[2017-03-05] MEDS: MORPHINE SULFATE 4 MG/ML SYRINGE IVP PRN ×2 (02:52→20:37)
[2017-03-05] MEDS: LEVOTHYROXINE 100 MCG TAB PO SCH (06:10)
[2017-03-05] MEDS: IPRATROPIUM-ALBUTEROL 3 ML NEB INHALATION SCH ×4 (07:34→19:45)
[2017-03-05] MEDS: ENOXAPARIN 40 MG/0.4 ML SYRINGE SQ SCH (07:40)
[2017-03-05] MEDS: KETOROLAC 30 MG/ML 1 ML VIAL IVP SCH ×2 (07:40→12:36)
[2017-03-05] MEDS: CEFEPIME 1 GM in SODIUM CHLORIDE 0.9% 50 ML IVPB SCH ×3 (07:41→23:53)
[2017-03-05] MEDS: FAMOTIDINE 20 MG TAB PO SCH ×2 (07:41→20:37)
[2017-03-05] MEDS: PARoxetine 20 MG TAB PO SCH (07:41)
[2017-03-05] MEDS: DOCUSATE 100 MG CAP PO SCH ×2 (07:41→20:37)
[2017-03-05] MEDS: valACYclovir HCL 1,000 MG TABLET PO SCH ×2 (07:42→20:37)
--- NOTE | 2017-03-05 08:08 | XR ---
EXAMINATION TYPE: XR chest 1V portable DATE OF EXAM: 03/05/2017 HISTORY: post pigtail placement. REFERENCE: Previous study dated 03/04/2017. FINDINGS: There is a pigtail catheter in place on the left. A definite pneumothorax is not seen. Heart size is upper limits of normal. There is minimal airspace disease at the right lung base. Lung volumes are prominent.. IMPRESSION: 1. I SUSPECT COPD. 2. BORDERLINE CARDIOMEGALY. 3. I DO NOT IDENTIFY A PNEUMOTHORAX AT THIS TIME. 4. LEFT BASILAR ATELECTASIS OR EARLY AIRSPACE DISEASE.
[2017-03-05 08:27] LABS: Basophils % (A) 1 %; CH 31.3; CHCM 33.2; Eosinophils # (A) 0.8 k/uL (0-0.7); Eosinophils % (A) 16 %; HCT 31.8 % (34.0-46.0); HDW 3.67; Hypochromasia Slight; Luc # (Auto) 0.09; Luc % (Auto) 2; Lymphocytes # (A) 1.6 k/uL (1.0-4.8); Lymphocytes % (A) 30 %; MCH 29.8 pg (25.0-35.0); MCHC 31.5 g/dL (31.0-37.0); MCV 94.6 fL (80.0-100.0); Monocytes # (A) 0.3 k/uL (0-1.0); Monocytes % (A) 5 %; Neutrophils # (A) 2.5 k/uL (1.3-7.7); Neutrophils % (A) 47 %; Poikilocytosis Slight; RBC 3.36 m/uL (3.80-5.40); RDW 13.4 % (11.5-15.5); WBC 5.2 k/uL (3.8-10.6); WBC (Perox) 5.41
[2017-03-05 09:11] LABS: Anion Gap 7 mmol/L; Blood Urea Nitrogen 13 mg/dL (7-17); Calcium 9.2 mg/dL (8.4-10.2); Carbon Dioxide 23 mmol/L (22-30); Chloride 109 mmol/L (98-107); Glucose 95 mg/dL (74-99); Non-African American GFR(MDRD) >60 (>60 ml/min/1.73 sqM); Potassium 3.9 mmol/L (3.5-5.1); Sodium 139 mmol/L (137-145)
--- NOTE | 2017-03-05 09:28 | P.PN ---
Progress Note - Text The patient says that she is comfortable and has no shortness of breath. Her chest x-ray apparently showed improvement and she is hopeful that her chest tube can be removed later today. If she is discharged over the weekend she should Dr. Lau next week to set up a follow-up appointment with him.
--- NOTE | 2017-03-05 10:40 | P.PN ---
Subjective Principal diagnosis: Recurrent right pleural effusion. History of right renal calculi, hyperlipidemia, hypothyroidism, depression, migraine headaches, bronchitis. Recent history of right-sided hydropneumothorax post-nephrostomy tube insertion and removal POD #3 placement of right-sided pigtail catheter by interventional radiology for loculated pleural effusion. Patient currently laying in bed in no acute distress. No new complaints. Alteplase instilled last 2 days through pigtail catheter, no drainage the first day, positive drainage in the last 24 hours. Objective - Vital Signs Vital signs: Vital Signs Temp 98.5 F 03/04/17 21:24 Pulse 72 03/05/17 07:44 Resp 16 03/04/17 21:24 BP 160/78 03/04/17 21:24 Pulse Ox 98 03/04/17 21:24 Intake & Output 03/04/17 03/05/17 03/05/17 18:59 06:59 18:59 Intake Total 50 500 Balance 50 500 Weight 56.699 kg Intake: Intake, IV Titration 50 300 Amount Cefepime 1 gm In Sodium 50 50 Chloride 0.9% 50 ml @ 100 mls/hr IVPB Q8HR [facility] Rx# :[id number] Vancomycin 1,000 mg In 250 Sodium Chloride 0.9% 250 ml @ 125 mls/hr IVPB Q12H [facility] Rx#:[id number] Oral 200 Other: Voiding Method Toilet Toilet Toilet # Voids 1 1 - Constitutional General appearance: Present: cooperative, no acute distress - Respiratory Details: Lungs sounds diminished bilaterally. Respirations even, nonlabored. Currently remains infection saturation 90%. Able to achieve 1250 mL on incentive spirometry. Pigtail catheter connected to atrium, placed on waterseal yesterday , 220 mL dark bloody fluid drained in the last 24 hours, 110 mL since instillation of alteplase yesterday. - Cardiovascular Details: S1, S2 present. Regular rate and rhythm. Palpable pulses bilaterally. No edema present. - Gastrointestinal Gastrointestinal Comment(s): Abdomen soft, nontender, nondistended. Active bowel sounds 4 quadrants. Tolerating diet. - Genitourinary Genitourinary Comment(s): Continues to void clear, yellow urine. - Neurologic Neurologic: Present: CNII-XII intact - Musculoskeletal Musculoskeletal: Present: gait normal, strength equal bilaterally - Psychiatric Psychiatric: Present: A&O x's 3, appropriate affect, intact judgment & insight - Allied health notes Allied health notes reviewed: nursing - Labs CBC & Chem 7: 03/05/17 08:00 03/05/17 08:00 Labs: Abnormal Lab Results - Last 24 Hours (Table) 03/05/17 03/05/17 Range/Units 08:00 08:00 RBC 3.36 L (3.80-5.40) m/uL Hgb 10.0 L (11.4-16.0) gm/dL Hct 31.8 L (34.0-46.0) % Eosinophils # 0.8 H (0-0.7) k/uL Chloride 109 H (98-107) mmol/L Microbiology - Last 24 Hours (Table) 03/02/17 11:30 Anaerobic Culture - Preliminary Pleural Fluid 03/01/17 12:21 Blood Culture - Preliminary Blood No Growth after 72 hours 03/01/17 12:16 Blood Culture - Preliminary Blood No Growth after 72 hours 03/02/17 11:30 Gram Stain - Preliminary Pleural Fluid Body Fluid Culture - Preliminary - Imaging and Cardiology Chest x-ray: report reviewed, image reviewed Assessment and Plan (1) Hydropneumothorax Status: Acute (2) Pleural effusion, right Status: Acute (3) Right-sided chest wall pain Status: Acute (4) History of bronchitis Status: Acute (5) History of depression Status: Acute (6) Hyperlipidemia Status: Acute (7) Hypothyroid Status: Acute Plan: 1. Patient had right-sided pigtail catheter placement by interventional radiology, connected to atrium. Placed to waterseal yesterday. 2. Will keep pigtail catheter for 1 more day as patient had adequate drainage after instillation of alteplase. 3. Encourage incentive spirometry use. 4. Increase activity, ambulate in hallway. 5. GI/DVT prophylaxis. 6. Medical comorbidities to be managed by primary care service. 7. Bronchodilators, antibiotics per pulmonary services. 8. Continue Toradol, Ultram for pain control as well as anti-inflammatory properties. 9. More recommendations as patient progresses. Time with Patient: Greater than 30
[2017-03-05] MEDS: ONDANSETRON 4 MG/2 ML VIAL IVP PRN ×2 (10:56→16:33)
[2017-03-05] MEDS ORDERED: ALTEPLASE 10 MG in SODIUM CHLORIDE 0.9% 100 ML IRRIGATION ONE (13:35)
--- NOTE | 2017-03-05 14:06 | P.PN ---
Subjective 56-year-old female patient, who is coming in for pain along the right side of the chest. The patient reports that the pain was present since she had a complication of a previously inserted percutaneous nephrostomy tube as part of a treatment of multiple right-sided kidney stones. Note that back then, the patient developed complete opacification of the right lung following the removal of the nephrostomy tube. Based on that, general surgery inserted a chest tube and there was a complete response with complete reexpansion of the right lung and evacuation of a right-sided pleural effusion. The chest tube was removed and the patient was discharged home. Nevertheless the patient continued to have pain on of along the right chest area radiating to the back. She also had a bout of temperature yesterday of 104.0F. For that reason she came into the emergency department. Chest x-ray showed a small right-sided pleural effusion. Based on that the patient a CAT scan of the chest that showed no evidence of any pulmonary embolism. It showed a located right-sided pleural effusion and the posterior right lung base along with compressive atelectasis. The amount of fluid is [id number] in size and nothing compared to what she had earlier. Noted the patient had a double-J catheter inserted in the right kidney that was also removed a week ago. Her current urinalysis is negative for any ongoing infection. She has no cough. No sputum production. No hemoptysis. On 03/02/2017 the patient was seen in follow-up in the case was also discussed with cardiothoracic surgery. The agreement is that the patient will need to have her ultrasound-guided thoracentesis and possibly a pigtail catheter insertion to completely evacuate the right-sided pleural effusion and decide on treatment accordingly. The patient is willing to undergo the procedure. She has no specific complaints for now. No leukocytosis. She is afebrile for now. Antibiotic coverage is essentially the same. On the patient has a pigtail catheter in her right hemithorax. A total of 200 mL of fluid was aspirated. No active drainage. Alteplase will be offered and instilled through the pleural space to control the drainage. Meanwhile the patient is doing well. Chest pain is still present although it has subsided considerably. No fever. No chills. No sweats. Discussed the case with cardiothoracic surgery and a follow-up CAT scan be obtained within the next 24 hours to assess response to this percutaneous drainage. Cultures from the pleural space fluid is still pending. Meanwhile the acid-fast 8 was negative and the fungal stains were negative and the Gram stain showed no microbial growth. On 03/04/2017 the patient is being seen in follow-up. She underwent a alteplase treatment yesterday with minimal amount of drainage post treatment. I think output was in the order of 50-70 mL. The output is still bloody. A follow-up CAT scan of the chest was done this morning it showed no interval changes size of the located pleural effusion on the right. Questionable 10% right-sided pneumothorax is seen without any mediastinal radiation. Clinically the patient is still the same. She is not having any significant shortness of breath. She is resting comfortably in bed. The right chest is somewhat uncomfortable. A second treatment with alteplase will be done today. On 03/05/2017, I'm seeing this patient for a follow-up. She is emanating in the hallway. The right-sided pigtail is still in place. The chest x-rays showing a very tiny right apical pneumothorax. There is improvement in the past in the right lung base and the patient is having increased output from the chest tube and based on that we decided to give the patient another alteplase infusion through the chest tube and keep the tube in for another 24 hours. A repeat chest x-ray with PA and lateral views to be done tomorrow. Meanwhile, all of the cultures came back negative and the patient will be taken of vancomycin and she'll be kept only on cefepime for now. The white cell count is not elevated. Hemoglobin stable at 10.1. Objective - Vital Signs Vital signs: Vital Signs Temp 98.5 F 03/04/17 21:24 Pulse 72 03/05/17 07:44 Resp 16 03/04/17 21:24 BP 160/78 03/04/17 21:24 Pulse Ox 98 03/04/17 21:24 Intake & Output 03/04/17 03/05/17 03/05/17 18:59 06:59 18:59 Intake Total 50 500 Balance 50 500 Weight 56.699 kg Intake: Intake, IV Titration 50 300 Amount Cefepime 1 gm In Sodium 50 50 Chloride 0.9% 50 ml @ 100 mls/hr IVPB Q8HR [facility] Rx# :[id number] Vancomycin 1,000 mg In 250 Sodium Chloride 0.9% 250 ml @ 125 mls/hr IVPB Q12H [facility] Rx#:[id number] Oral 200 Other: Voiding Method Toilet Toilet Toilet # Voids 1 1 - Exam Gen. appearance the patient is calm and comfortable likely distress.Head exam was generally normal. There was no scleral icterus or corneal arcus. Mucous membranes were moist.Neck was supple and without jugular venous distension, thyromegaly, or carotid bruits. Carotids were easily palpable bilaterally. There was no adenopathy. Lung sounds are diminished in the right lung base compared to the left. The patient has a pigtail catheter the posterior right chest area and this is connected to a Pleur-evac which has no evidence of any air leak. Breasts of the record otherwise within normal limits.Cardiac exam revealed the PMI to be normally situated and sized. The rhythm was regular and no extrasystoles were noted during several minutes of auscultation. The first and second heart sounds were normal and physiologic splitting of the second heart sound was noted. There were no murmurs, rubs, clicks, or gallops.Abdominal exam revealed normal bowel sounds. The abdomen was soft, non- tender, and without masses, organomegaly, or appreciable enlargement of the abdominal aorta.Examination of the extremities revealed easily palpable radial, femoral and pedal pulses. There was no cyanosis, clubbing or edema. Skin is within normal limits and there is no cellulitis or any wounds or ulcers. Skeletal examination is within normal limits without any injuries or deformities or arthritis. Neurologic exam is within normal and the patient has awake and alert and there is no focal neurological deficit. - Labs CBC & Chem 7: 03/05/17 08:00 03/05/17 08:00 Labs: Abnormal Lab Results - Last 24 Hours (Table) 03/05/17 03/05/17 Range/Units 08:00 08:00 RBC 3.36 L (3.80-5.40) m/uL Hgb 10.0 L (11.4-16.0) gm/dL Hct 31.8 L (34.0-46.0) % Eosinophils # 0.8 H (0-0.7) k/uL Chloride 109 H (98-107) mmol/L Microbiology - Last 24 Hours (Table) 03/02/17 11:30 Gram Stain - Preliminary Pleural Fluid Body Fluid Culture - Preliminary 03/02/17 11:30 Anaerobic Culture - Preliminary Pleural Fluid 03/01/17 12:21 Blood Culture - Preliminary Blood No Growth after 72 hours 03/01/17 12:16 Blood Culture - Preliminary Blood No Growth after 72 hours Assessment and Plan Plan: Assessment 1 loculated right sided pleural effusion/fluid is located in the right lung base associated with some compressive atelectasis. This is most likely a residual of previous pleural effusion that developed at the time of insertion and removal of a nephrostomy tube. A percutaneous pigtail catheter was inserted and evacuation of bloody effusion in the order of 250 mL was evacuated from the right lung. Cultures of been negative thus far. Since then, the patient has already received 2 infusions with alteplase and she'll be receiving the third today. After the second infusion there has been significant improvement in the output and worsening increased output on today's evaluation with improvement of the pleural effusion on the right. Meanwhile the patient has a very tiny right apical pneumothorax on today's chest x-ray. 2 history of a right-sided hydropneumothorax post right sided percutaneous nephrolithotomy tube insertion and removal 3 nephrolithiasis with previous lithotripsy, double-J tube insertion, and previous nephrostomy tube insertion 4 fatty liver 5 migraine 6 hypothyroidism Plan Discussed the case with surgery. She was a third dose of alteplase. Monitor the output. Repeat chest x-ray in the morning. Ambulate. Discontinue the vancomycin. We'll follow
[2017-03-05] MEDS: LORazepam 1 MG TAB PO PRN (17:31)
--- NOTE | 2017-03-05 18:38 | PN ---
PROGRESS NOTE DATE OF SERVICE: 03/05/2017. This 56-year-old woman is admitted right-sided pleural effusion, possible empyema with chest tube drainage. At this time the patient has been closely monitored. Patient is on broad-spectrum IV antibiotics including cefepime and vancomycin. Patient is afebrile at this time. Multiple consultants are following the patient including Dr. Fragoso and Dr. Lau. PAST MEDICAL HISTORY: Reviewed. REVIEW OF SYSTEMS: CARDIOVASCULAR: As mentioned earlier. RESPIRATORY: As mentioned earlier. GI: No nausea. : No dysuria. NERVOUS SYSTEM: No numbness or weakness. CURRENT MEDICATIONS: Current medications are reviewed and include: 1. Amery 5 mg q.4h p.r.n. 2. DuoNeb q.i.d. and p.r.n. 3. Cefepime 1 g IV q.8h. 4. Colace 100 mg b.i.d. 5. Lovenox 40 mg subcu daily. 6. Pepcid 20 mg b.i.d. 7. Toradol 50 mg q.6h. 8. Synthroid. 9. Ativan 1 mg t.i.d. p.r.n. 10.Simvastatin. 11.Morphine sulfate. 12.Paxil. 13.Ultram. 14.Valtrex. PHYSICAL EXAMINATION: Patient is alert and oriented x3. Pulse 71, blood pressure 160/78, respirations 16, temperature 98.4, pulse ox 98% on room air. HEENT: Conjunctivae normal. Oral mucosa moist. NECK: No jugular venous distention. No carotid bruit. No lymph node enlargement. CARDIOVASCULAR: S1, S2. No S3, no S4. RESPIRATORY: Breath sounds diminished in the bases. Bilateral scattered rhonchi and crackles. Breath sounds are more diminished on the right side. Chest tube is present. ABDOMEN: Soft, nontender. No mass palpable. LEGS: No edema. No swelling. NERVOUS SYSTEM: No focal motor sensory deficits. LYMPHATICS: No lymphadenopathy in the neck, axillae or groin. SKIN: No ulcer, rash or bleeding. LABS: WBC 5.8, hemoglobin 10, sodium 139, potassium 3.9, vancomycin 10.8. ASSESSMENT: 1. Low-grade right-sided pleural effusion possible empyema status post right chest tube drainage. 2. Right hydrothorax. 3. Hyperlipidemia. 4. Hypothyroidism. 5. Depression. 6. Urinary tract infection with enterococcus faecalis acute. RECOMMENDATIONS AND DISCUSSION: In this 56-year-old woman who presented with multiple complex medical issues, we will monitor the patient closely. Continue the current medications, continue symptomatic treatment. Continue with chest tube drainage, incentive spirometry. Continue with broad-spectrum IV antibiotics. Closely follow. Discussed with Dr. Fragoso. Prognosis guarded. Further recommendations to follow. Patient is followed by Dr. Michael Solorzano in the outpatient setting. MMODL / IJN: [id number] /
[2017-03-05] MEDS: PROCHLORPERAZINE 10 MG TAB PO PRN (20:37)
[2017-03-06] MEDS: LEVOTHYROXINE 100 MCG TAB PO SCH (06:11)
[2017-03-06] MEDS: IPRATROPIUM-ALBUTEROL 3 ML NEB INHALATION SCH ×4 (07:32→20:45)
--- NOTE | 2017-03-06 07:52 | XR ---
EXAMINATION TYPE: XR chest 2V DATE OF EXAM: 03/06/2017 HISTORY: pleural effusion. REFERENCE: Previous study dated 03/05/2017. FINDINGS: The lungs are overinflated. There is a right-sided pleural effusion which has gotten worse from the previous study. There is a 10-15% by volume right apical pneumothorax. In retrospect this wa s present yesterday at approximately 10%. The left lung is clear. Heart is not enlarged. IMPRESSION: 1. 10-15% BY VOLUME RIGHT APICAL PNEUMOTHORAX. 2. COPD. 3. RIGHT-SIDED EFFUSION.
[2017-03-06] MEDS: valACYclovir HCL 1,000 MG TABLET PO SCH ×2 (08:11→20:25)
[2017-03-06] MEDS: CEFEPIME 1 GM in SODIUM CHLORIDE 0.9% 50 ML IVPB SCH ×2 (08:11→16:04)
[2017-03-06] MEDS: PARoxetine 20 MG TAB PO SCH (08:11)
[2017-03-06] MEDS: DOCUSATE 100 MG CAP PO SCH ×2 (08:11→20:25)
[2017-03-06] MEDS: FAMOTIDINE 20 MG TAB PO SCH ×2 (08:11→20:25)
[2017-03-06] MEDS: ENOXAPARIN 40 MG/0.4 ML SYRINGE SQ SCH (08:12)
--- NOTE | 2017-03-06 08:46 | P.PN ---
Subjective Principal diagnosis: Recurrent loculated right pleural effusion. History of right renal calculi, hyperlipidemia, hypothyroidism, depression, migraine headaches, bronchitis. Recent history of right-sided hydropneumothorax post-nephrostomy tube insertion and removal for nephrolithiasis POD #4 placement of right-sided pigtail catheter by interventional radiology for loculated pleural effusion. Patient currently laying in bed in no acute distress. No new complaints except she is looking forward to having her chest tube removed. Alteplase instilled last 3 days through pigtail catheter, no drainage the first day, 220 ml drainage the second day, 140 mL drainage in the last 24 hours. Objective - Vital Signs Vital signs: Vital Signs Temp 98.7 F 03/06/17 08:33 Pulse 89 03/06/17 08:33 Resp 16 03/06/17 08:33 BP 115/68 03/06/17 08:33 Pulse Ox 96 03/06/17 08:33 Intake & Output 03/05/17 03/06/17 03/06/17 18:59 06:59 18:59 Intake Total 750 550 Output Total 40 85 Balance 710 465 Weight 56.699 kg 56.699 kg Intake: Intake, IV Titration 100 Amount Cefepime 1 gm In Sodium 100 Chloride 0.9% 50 ml @ 100 mls/hr IVPB Q8HR [facility] Rx# :[id number] Oral 650 550 Output: Chest Tube Drainage 20 70 Pleural Catheter Right 20 70 Posterior Chest Drainage 20 15 Right Posterior Chest 20 15 Other: Voiding Method Toilet Toilet # Voids 1 1 - Constitutional General appearance: Present: cooperative, no acute distress - Respiratory Details: Lungs sounds clear but diminished on the right side. Respirations even, nonlabored. Currently on room air with oxygen saturation 97%. Able to achieve 1500 mL on her incentive spirometry. Pigtail catheter connected to atrium and on waterseal, 60 mL bloody drainage overnight, 140 mL last 24 hours. Chest x- ray reviewed, reveals 10-15% right apical pneumothorax, right-sided effusion still present. - Cardiovascular Details: S1, S2 present. Regular rate and rhythm, normal sinus rhythm on telemetry. No edema present. Palpable pulses bilaterally. - Gastrointestinal Gastrointestinal Comment(s): Abdomen soft, nontender, nondistended. Active bowel sounds 4 quadrants. Tolerating diet. - Genitourinary Genitourinary Comment(s): Continues to void. - Neurologic Neurologic: Present: CNII-XII intact - Musculoskeletal Musculoskeletal: Present: gait normal, strength equal bilaterally - Psychiatric Psychiatric: Present: A&O x's 3, appropriate affect, intact judgment & insight - Allied health notes Allied health notes reviewed: nursing - Labs CBC & Chem 7: 03/05/17 08:00 03/05/17 08:00 Labs: Abnormal Lab Results - Last 24 Hours (Table) 03/05/17 Range/Units 08:00 Chloride 109 H (98-107) mmol/L Microbiology - Last 24 Hours (Table) 03/01/17 12:21 Blood Culture - Preliminary Blood No Growth after 96 hours 03/01/17 12:16 Blood Culture - Preliminary Blood No Growth after 96 hours 03/02/17 11:30 Gram Stain - Preliminary Pleural Fluid Body Fluid Culture - Preliminary - Imaging and Cardiology Chest x-ray: report reviewed, image reviewed Assessment and Plan (1) Hydropneumothorax Status: Acute (2) Pleural effusion, right Status: Acute (3) Right-sided chest wall pain Status: Acute (4) History of bronchitis Status: Acute (5) History of depression Status: Acute (6) Hyperlipidemia Status: Acute (7) Hypothyroid Status: Acute Plan: 1. Patient had right-sided pigtail catheter placement by interventional radiology, connected to atrium, currently on waterseal. 2. Will keep pigtail catheter for 1 more day as patient had adequate drainage after instillation of alteplase. 3. Encourage incentive spirometry use. 4. Increase activity, ambulate in hallway. 5. GI/DVT prophylaxis. 6. Medical comorbidities to be managed by primary care service. 7. Bronchodilators, antibiotics per pulmonary services. 8. Continue Toradol, Ultram for pain control as well as anti-inflammatory properties. 9. More recommendations as patient progresses. Time with Patient: Greater than 30
[2017-03-06] MEDS: PROCHLORPERAZINE 10 MG TAB PO PRN ×2 (08:47→14:48)
--- NOTE | 2017-03-06 13:12 | P.PN ---
Subjective 56-year-old female patient, who is coming in for pain along the right side of the chest. The patient reports that the pain was present since she had a complication of a previously inserted percutaneous nephrostomy tube as part of a treatment of multiple right-sided kidney stones. Note that back then, the patient developed complete opacification of the right lung following the removal of the nephrostomy tube. Based on that, general surgery inserted a chest tube and there was a complete response with complete reexpansion of the right lung and evacuation of a right-sided pleural effusion. The chest tube was removed and the patient was discharged home. Nevertheless the patient continued to have pain on of along the right chest area radiating to the back. She also had a bout of temperature yesterday of 104.0F. For that reason she came into the emergency department. Chest x-ray showed a small right-sided pleural effusion. Based on that the patient a CAT scan of the chest that showed no evidence of any pulmonary embolism. It showed a located right-sided pleural effusion and the posterior right lung base along with compressive atelectasis. The amount of fluid is [id number] in size and nothing compared to what she had earlier. Noted the patient had a double-J catheter inserted in the right kidney that was also removed a week ago. Her current urinalysis is negative for any ongoing infection. She has no cough. No sputum production. No hemoptysis. On 03/02/2017 the patient was seen in follow-up in the case was also discussed with cardiothoracic surgery. The agreement is that the patient will need to have her ultrasound-guided thoracentesis and possibly a pigtail catheter insertion to completely evacuate the right-sided pleural effusion and decide on treatment accordingly. The patient is willing to undergo the procedure. She has no specific complaints for now. No leukocytosis. She is afebrile for now. Antibiotic coverage is essentially the same. On the patient has a pigtail catheter in her right hemithorax. A total of 200 mL of fluid was aspirated. No active drainage. Alteplase will be offered and instilled through the pleural space to control the drainage. Meanwhile the patient is doing well. Chest pain is still present although it has subsided considerably. No fever. No chills. No sweats. Discussed the case with cardiothoracic surgery and a follow-up CAT scan be obtained within the next 24 hours to assess response to this percutaneous drainage. Cultures from the pleural space fluid is still pending. Meanwhile the acid-fast 8 was negative and the fungal stains were negative and the Gram stain showed no microbial growth. On 03/04/2017 the patient is being seen in follow-up. She underwent a alteplase treatment yesterday with minimal amount of drainage post treatment. I think output was in the order of 50-70 mL. The output is still bloody. A follow-up CAT scan of the chest was done this morning it showed no interval changes size of the located pleural effusion on the right. Questionable 10% right-sided pneumothorax is seen without any mediastinal radiation. Clinically the patient is still the same. She is not having any significant shortness of breath. She is resting comfortably in bed. The right chest is somewhat uncomfortable. A second treatment with alteplase will be done today. On 03/05/2017, I'm seeing this patient for a follow-up. She is emanating in the hallway. The right-sided pigtail is still in place. The chest x-rays showing a very tiny right apical pneumothorax. There is improvement in the past in the right lung base and the patient is having increased output from the chest tube and based on that we decided to give the patient another alteplase infusion through the chest tube and keep the tube in for another 24 hours. A repeat chest x-ray with PA and lateral views to be done tomorrow. Meanwhile, all of the cultures came back negative and the patient will be taken of vancomycin and she'll be kept only on cefepime for now. The white cell count is not elevated. Hemoglobin stable at 10.1. On 03/06/2017 the patient is doing well and she is ambulating. I gave her the third alteplase instillation yesterday. She is postop day #4 following a right- sided pigtail catheter insertion. Note that the patient had no drainage after the first treatment, to 20 mL of the range of the second treatment and another 140 mL drainage over the past 24 hours. The chest x-ray showing improvement especially on the lateral view which shows the minor motion of the right-sided pleural effusion. She is doing well. She has no specific complaints. She has been taken of vancomycin. She is on IV cefepime. White cell count is not elevated. There is no other significant events overnight. Objective - Vital Signs Vital signs: Vital Signs Temp 98.7 F 03/06/17 08:33 Pulse 89 03/06/17 08:33 Resp 16 03/06/17 08:33 BP 115/68 03/06/17 08:33 Pulse Ox 96 03/06/17 08:33 Intake & Output 03/05/17 03/06/17 03/06/17 18:59 06:59 18:59 Intake Total 750 550 650 Output Total 40 85 0 Balance 710 465 650 Weight 56.699 kg 56.699 kg Intake: Intake, IV Titration 100 100 Amount Cefepime 1 gm In Sodium 100 100 Chloride 0.9% 50 ml @ 100 mls/hr IVPB Q8HR [facility] Rx# :[id number] Oral 650 550 550 Output: Chest Tube Drainage 20 70 Pleural Catheter Right 20 70 Posterior Chest Drainage 20 15 0 Right Posterior Chest 20 15 0 Other: Voiding Method Toilet Toilet # Voids 1 1 3 - Exam Gen. appearance the patient is calm and comfortable likely distress.Head exam was generally normal. There was no scleral icterus or corneal arcus. Mucous membranes were moist.Neck was supple and without jugular venous distension, thyromegaly, or carotid bruits. Carotids were easily palpable bilaterally. There was no adenopathy. Lung sounds are diminished in the right lung base compared to the left. The patient has a pigtail catheter the posterior right chest area and this is connected to a Pleur-evac which has no evidence of any air leak. Breasts of the record otherwise within normal limits.Cardiac exam revealed the PMI to be normally situated and sized. The rhythm was regular and no extrasystoles were noted during several minutes of auscultation. The first and second heart sounds were normal and physiologic splitting of the second heart sound was noted. There were no murmurs, rubs, clicks, or gallops.Abdominal exam revealed normal bowel sounds. The abdomen was soft, non- tender, and without masses, organomegaly, or appreciable enlargement of the abdominal aorta.Examination of the extremities revealed easily palpable radial, femoral and pedal pulses. There was no cyanosis, clubbing or edema. Skin is within normal limits and there is no cellulitis or any wounds or ulcers. Skeletal examination is within normal limits without any injuries or deformities or arthritis. Neurologic exam is within normal and the patient has awake and alert and there is no focal neurological deficit. - Labs CBC & Chem 7: 03/05/17 08:00 03/05/17 08:00 Labs: Microbiology - Last 24 Hours (Table) 03/02/17 11:30 Anaerobic Culture - Final Pleural Fluid 03/02/17 11:30 Gram Stain - Final Pleural Fluid Body Fluid Culture - Final 03/01/17 12:21 Blood Culture - Preliminary Blood No Growth after 96 hours 03/01/17 12:16 Blood Culture - Preliminary Blood No Growth after 96 hours Assessment and Plan Plan: Assessment 1 loculated right sided pleural effusion/fluid is located in the right lung base associated with some compressive atelectasis. This is most likely a residual of previous pleural effusion that developed at the time of insertion and removal of a nephrostomy tube. A percutaneous pigtail catheter was inserted and evacuation of bloody effusion in the order of 250 mL was evacuated from the right lung. Cultures of been negative thus far. Since then, the patient has already received 2 infusions with alteplase and she'll be receiving the third today. After the second infusion there has been significant improvement in the output and worsening increased output on today's evaluation with improvement of the pleural effusion on the right. Meanwhile the patient has a very tiny right apical pneumothorax on today's chest x-ray. The patient had a total of 2 20 mL of the range after the second alteplase infusion and she has developed another 140 mL of drainage over the past 24 hours after the third alteplase infusion. 2 history of a right-sided hydropneumothorax post right sided percutaneous nephrolithotomy tube insertion and removal 3 nephrolithiasis with previous lithotripsy, double-J tube insertion, and previous nephrostomy tube insertion 4 fatty liver 5 migraine 6 hypothyroidism Plan Discussed the case with surgery. Continue monitoring the drainage for another 24 hours. Chest x-rays improved. Clinically asymptomatic. May possibly remove the chest tube tomorrow depending on her condition. She has a small right apical pneumothorax which will ultimately resolve recovered. Continue ambulation. Continue using incentive spirometer.
[2017-03-06] MEDS: MORPHINE SULFATE 4 MG/ML SYRINGE IVP PRN ×2 (13:59→20:25)
--- NOTE | 2017-03-06 20:20 | PN ---
PROGRESS NOTE DATE OF SERVICE: 03/06/2017 This 56-year-old woman who was admitted with right-sided loculated pleural effusion possible empyema had chest tube drainage. Patient also was treated with empiric antibiotics. Cultures are negative so far. The most recent chest x-ray is improving and showing some apical pneumothorax. Otherwise, Dr. Monge and Dr. Fragoso are following the patient closely. Dr. Monge has recommended to keep the pigtail catheter for [address] Fragoso has recommended to continue with the rest of medications as well. The patient also had significant renal problems and nephrolithiasis also. PAST MEDICAL HISTORY: Reviewed. REVIEW OF SYSTEMS: CARDIOVASCULAR: No angina. RESPIRATORY: As mentioned earlier. GI: No nausea. : As mentioned earlier. NERVOUS SYSTEM: No numbness or weakness. CURRENT MEDICATIONS: 1. [place] 5 mg q.4h p.r.n. 2. DuoNeb q.i.d. and p.r.n. 3. Cefepime 1 g IV q.8 hours. 4. Colace 100 mg. 5. Lovenox 40 mg subcu daily. 6. Pepcid 20 mg p.o. b.i.d. 7. Synthroid 100 mcg p.o. daily. 8. Morphine sulfate. 9. Paxil 20 mg q.a.m. 10.Compazine. 11.Ultram. 12.Valtrex. PHYSICAL EXAM: Patient is alert, oriented x3. Pulse is 89, blood pressure 115/68, respirations 16, temperature 98.1, pulse ox 97% on room air. HEENT: Conjunctivae normal. NECK: No jugular venous distention. CARDIOVASCULAR: S1, S2 muffled. RESPIRATORY: Breath sounds diminished at the bases. A few scattered rhonchi and crackles. at the bases especially the right side. ABDOMEN: Soft, nontender. No mass palpable. LEGS: No edema, no swelling. NERVOUS SYSTEM: No focal deficits. LABS: WBC 5, hemoglobin 10, sodium 139, potassium 3.9, pleural fluid is noted. Urine culture grew enterococcus faecalis vancomycin sensitive. ASSESSMENT: 1. Right-sided loculated pleural effusion, possible empyema status post right chest tube drainage on empiric IV antibiotics. 2. Right hydrothorax. 3. Hyperlipidemia. 4. Urinary tract infection with enterococcus faecalis acute present on admission. 5. Hypothyroidism. 6. Depression. RECOMMENDATIONS AND DISCUSSION: This 56-year-old woman who presented with multiple complex medical issues, will monitor the patient closely. Continue the current medications, continue symptomatic treatment. I would recommend to continue the bronchodilators and also incentive spirometry. Chest tube drainage, broad-spectrum IV antibiotics. Prognosis guarded because of multiple complex medical issues. further recommendations to follow. See orders for details. Discussed with patient who understands and agrees. MMODL / IJN: [id number] / PADDY
[2017-03-07] MEDS: CEFEPIME 1 GM in SODIUM CHLORIDE 0.9% 50 ML IVPB SCH ×2 (00:12→08:13)
[2017-03-07] MEDS: LEVOTHYROXINE 100 MCG TAB PO SCH (06:06)
--- NOTE | 2017-03-07 07:01 | P.PN ---
Subjective The patient is in the hospital for a right hydropneumothorax post percutaneous nephrostolithotomy. She has had a chest tube. There is has been some blood requiring alteplase. The tube is draining nicely. I suspect will be removed soon. Otherwise she is clinically stable. Objective - Vital Signs Vital signs: Vital Signs Temp 97.7 F 03/06/17 23:23 Pulse 77 03/06/17 23:23 Resp 16 03/06/17 23:23 BP 119/70 03/06/17 23:23 Pulse Ox 98 03/06/17 23:23 Intake & Output 03/06/17 03/07/17 03/07/17 18:59 06:59 18:59 Intake Total 650 100 Output Total 5 Balance 645 100 Weight 56.699 kg Intake: Intake, IV Titration 100 Amount Cefepime 1 gm In Sodium 100 Chloride 0.9% 50 ml @ 100 mls/hr IVPB Q8HR [facility] Rx# :[id number] Oral 550 100 Output: Chest Tube Drainage 5 Pleural Catheter Right 5 Posterior Chest Drainage 0 Right Posterior Chest 0 Other: Voiding Method Toilet Toilet # Voids 3 1 - Labs CBC & Chem 7: 03/05/17 08:00 03/05/17 08:00 Labs: Microbiology - Last 24 Hours (Table) 03/01/17 12:21 Blood Culture - Preliminary Blood No Growth after 120 hours 03/01/17 12:16 Blood Culture - Preliminary Blood No Growth after 120 hours 03/02/17 11:30 Anaerobic Culture - Final Pleural Fluid 03/02/17 11:30 Gram Stain - Final Pleural Fluid Body Fluid Culture - Final
[2017-03-07] MEDS: NON-FORMULARY DRUG (Simvastatin [Simvastatin] 20 MG) PO SCH ×3 (07:32→11:24)
[2017-03-07] MEDS: IPRATROPIUM-ALBUTEROL 3 ML NEB INHALATION SCH ×2 (07:46→11:42)
[2017-03-07] MEDS: PARoxetine 20 MG TAB PO SCH (08:12)
[2017-03-07] MEDS: FAMOTIDINE 20 MG TAB PO SCH (08:13)
--- NOTE | 2017-03-07 08:18 | P.PN ---
<Kailyn Ramsey - Last Filed: 03/07/17 08:12> Subjective Principal diagnosis: Recurrent loculated right pleural effusion. History of right renal calculi, hyperlipidemia, hypothyroidism, depression, migraine headaches, bronchitis. Recent history of right-sided hydropneumothorax post-nephrostomy tube insertion and removal for nephrolithiasis POD #5 placement of right-sided pigtail catheter by interventional radiology for loculated pleural effusion. Patient just getting back from x-ray, ambulating to the bed in no acute distress. No new complaints except she is looking forward to having her chest tube removed. Alteplase instilled for 3 days through pigtail catheter, no drainage the first day, 220 ml drainage the second day, 140 mL drainage the third day, 150 ml drainage in the last 24 hours. Objective - Vital Signs Vital signs: Vital Signs Temp 97.7 F 03/06/17 23:23 Pulse 77 03/06/17 23:23 Resp 16 03/06/17 23:23 BP 119/70 03/06/17 23:23 Pulse Ox 98 03/06/17 23:23 Intake & Output 03/06/17 03/07/17 03/07/17 18:59 06:59 18:59 Intake Total 650 100 Output Total 5 Balance 645 100 Weight 56.699 kg Intake: Intake, IV Titration 100 Amount Cefepime 1 gm In Sodium 100 Chloride 0.9% 50 ml @ 100 mls/hr IVPB Q8HR [facility] Rx# :[id number] Oral 550 100 Output: Chest Tube Drainage 5 Pleural Catheter Right 5 Posterior Chest Drainage 0 Right Posterior Chest 0 Other: Voiding Method Toilet Toilet # Voids 3 1 - Constitutional General appearance: Present: cooperative, no acute distress - Respiratory Details: Lungs sounds clear bilaterally but diminished on the right side. Respirations even, nonlabored. Currently on room air with oxygen saturation 98%. Able to achieve 1500 mL on incentive spirometry. Pigtail drain to waterseal, 150 mL dark old bloody drainage in the last 24 hours, no air leak present. Chest x- ray reviewed, continued improvement with decreased effusion. - Cardiovascular Details: S1, S2 present. Regular rate and rhythm. Palpable pulses bilaterally. No edema present. - Gastrointestinal Gastrointestinal Comment(s): Abdomen soft, nontender, nondistended. Active bowel sounds 4 quadrants. Tolerating diet. Does complain of nausea which is controlled with ordered anti- emetics. - Genitourinary Genitourinary Comment(s): Continues to void - Neurologic Neurologic: Present: CNII-XII intact - Musculoskeletal Musculoskeletal: Present: gait normal, strength equal bilaterally - Psychiatric Psychiatric: Present: A&O x's 3, appropriate affect, intact judgment & insight - Allied health notes Allied health notes reviewed: nursing - Labs CBC & Chem 7: 03/05/17 08:00 03/05/17 08:00 Labs: Microbiology - Last 24 Hours (Table) 03/01/17 12:21 Blood Culture - Preliminary Blood No Growth after 120 hours 03/01/17 12:16 Blood Culture - Preliminary Blood No Growth after 120 hours 03/02/17 11:30 Anaerobic Culture - Final Pleural Fluid 03/02/17 11:30 Gram Stain - Final Pleural Fluid Body Fluid Culture - Final - Imaging and Cardiology Chest x-ray: image reviewed Assessment and Plan (1) Hydropneumothorax Status: Acute (2) Pleural effusion, right Status: Acute (3) Right-sided chest wall pain Status: Acute (4) History of bronchitis Status: Acute (5) History of depression Status: Acute (6) Hyperlipidemia Status: Acute (7) Hypothyroid Status: Acute Plan: 1. Patient had right-sided pigtail catheter placement by interventional radiology, connected to atrium, currently on waterseal. 2. Potentially may discontinue pigtail today versus keeping for 1 more day. 3. Encourage incentive spirometry use. 4. Increase activity, ambulate in hallway. 5. GI/DVT prophylaxis. 6. Medical comorbidities to be managed by primary care service. 7. Bronchodilators, antibiotics per pulmonary services. 8. Continue Toradol, Ultram for pain control as well as anti-inflammatory properties. 9. More recommendations as patient progresses. Time with Patient: Greater than 30 <Miguel Shin - Last Filed: 03/08/17 15:35> Objective - Vital Signs Vital signs: Vital Signs Temp 98.2 F 03/07/17 07:00 Pulse 75 03/07/17 08:00 Resp 16 03/07/17 08:00 BP 138/61 03/07/17 07:00 Pulse Ox 96 03/07/17 07:00 Intake & Output 03/07/17 03/08/17 03/08/17 18:59 06:59 18:59 Output Total 3 Balance -3 Weight 56.699 kg Output: Chest Tube Drainage 3 Pleural Catheter Right 3 Posterior Chest Other: Voiding Method Toilet # Voids 1 - Labs CBC & Chem 7: 03/05/17 08:00 03/05/17 08:00 Labs: Microbiology - Last 24 Hours (Table) 03/01/17 12:21 Blood Culture - Final Blood No Growth after 144 hours 03/01/17 12:16 Blood Culture - Final Blood No Growth after 144 hours Assessment and Plan Plan: The patient was seen and examined. I agree with the above assessment and plan. The drainage from the pigtail catheter has decreased. Her chest x-ray has certainly improved following instillation of thrombolytics. She states that she is breathing better. We will remove the pigtail catheter today.
[2017-03-07] MEDS: valACYclovir HCL 1,000 MG TABLET PO SCH (08:20)
[2017-03-07] MEDS: DOCUSATE 100 MG CAP PO SCH (08:20)
--- NOTE | 2017-03-07 08:31 | XR ---
EXAMINATION TYPE: XR chest 2V DATE OF EXAM: 03/07/2017 COMPARISON: 03/06/2017 TECHNIQUE: PA and lateral views submitted. HISTORY: Pleural effusion FINDINGS: There is approximate 5% right apical pneumothorax. Chest tube is seen with a small right-sided pleura l effusion. Left lung is clear. No interstitial edema. Heart size within normal limits. IMPRESSION: 1. Small stable hydropneumothorax. Measuring approximately 5%.
[2017-03-07 09:07] VITALS: BP 138/61; PULSE 75; TEMP 98.2
[2017-03-07] MEDS: ENOXAPARIN 40 MG/0.4 ML SYRINGE SQ SCH (09:10)
[2017-03-07] MEDS: PROCHLORPERAZINE 10 MG TAB PO PRN (11:57)
[2017-03-07] MEDS: MORPHINE SULFATE 4 MG/ML SYRINGE IVP PRN (12:13)
--- NOTE | 2017-03-07 16:06 | P.PN ---
Subjective Principal diagnosis: Loculated right pleural effusion 56-year-old female patient, who is coming in for pain along the right side of the chest. The patient reports that the pain was present since she had a complication of a previously inserted percutaneous nephrostomy tube as part of a treatment of multiple right-sided kidney stones. Note that back then, the patient developed complete opacification of the right lung following the removal of the nephrostomy tube. Based on that, general surgery inserted a chest tube and there was a complete response with complete reexpansion of the right lung and evacuation of a right-sided pleural effusion. The chest tube was removed and the patient was discharged home. Nevertheless the patient continued to have pain on of along the right chest area radiating to the back. She also had a bout of temperature yesterday of 104.0F. For that reason she came into the emergency department. Chest x-ray showed a small right-sided pleural effusion. Based on that the patient a CAT scan of the chest that showed no evidence of any pulmonary embolism. It showed a located right-sided pleural effusion and the posterior right lung base along with compressive atelectasis. The amount of fluid is [id number] in size and nothing compared to what she had earlier. Noted the patient had a double-J catheter inserted in the right kidney that was also removed a week ago. Her current urinalysis is negative for any ongoing infection. She has no cough. No sputum production. No hemoptysis. On 03/02/2017 the patient was seen in follow-up in the case was also discussed with cardiothoracic surgery. The agreement is that the patient will need to have her ultrasound-guided thoracentesis and possibly a pigtail catheter insertion to completely evacuate the right-sided pleural effusion and decide on treatment accordingly. The patient is willing to undergo the procedure. She has no specific complaints for now. No leukocytosis. She is afebrile for now. Antibiotic coverage is essentially the same. On the patient has a pigtail catheter in her right hemithorax. A total of 200 mL of fluid was aspirated. No active drainage. Alteplase will be offered and instilled through the pleural space to control the drainage. Meanwhile the patient is doing well. Chest pain is still present although it has subsided considerably. No fever. No chills. No sweats. Discussed the case with cardiothoracic surgery and a follow-up CAT scan be obtained within the next 24 hours to assess response to this percutaneous drainage. Cultures from the pleural space fluid is still pending. Meanwhile the acid-fast 8 was negative and the fungal stains were negative and the Gram stain showed no microbial growth. On 03/04/2017 the patient is being seen in follow-up. She underwent a alteplase treatment yesterday with minimal amount of drainage post treatment. I think output was in the order of 50-70 mL. The output is still bloody. A follow-up CAT scan of the chest was done this morning it showed no interval changes size of the located pleural effusion on the right. Questionable 10% right-sided pneumothorax is seen without any mediastinal radiation. Clinically the patient is still the same. She is not having any significant shortness of breath. She is resting comfortably in bed. The right chest is somewhat uncomfortable. A second treatment with alteplase will be done today. On 03/05/2017, I'm seeing this patient for a follow-up. She is emanating in the hallway. The right-sided pigtail is still in place. The chest x-rays showing a very tiny right apical pneumothorax. There is improvement in the past in the right lung base and the patient is having increased output from the chest tube and based on that we decided to give the patient another alteplase infusion through the chest tube and keep the tube in for another 24 hours. A repeat chest x-ray with PA and lateral views to be done tomorrow. Meanwhile, all of the cultures came back negative and the patient will be taken of vancomycin and she'll be kept only on cefepime for now. The white cell count is not elevated. Hemoglobin stable at 10.1. On 03/06/2017 the patient is doing well and she is ambulating. I gave her the third alteplase instillation yesterday. She is postop day #4 following a right- sided pigtail catheter insertion. Note that the patient had no drainage after the first treatment, to 20 mL of the range of the second treatment and another 140 mL drainage over the past 24 hours. The chest x-ray showing improvement especially on the lateral view which shows the minor motion of the right-sided pleural effusion. She is doing well. She has no specific complaints. She has been taken of vancomycin. She is on IV cefepime. White cell count is not elevated. There is no other significant events overnight. Seen on 03/07/2017, patient is doing well, denies any specific complaints, no shortness of breath, her pleural effusion has been drained by Dr. Fragoso, and the catheter has been removed. Patient has a small tiny apical pneumothorax on her last chest x-ray. Clinically she is doing well, relatively asymptomatic. Labs were reviewed including a relatively normal CBC, normal electrolytes and renal profile. Her last urine culture was positive for Enterococcus faecalis. And that has been supposedly addressed by the admitting physician. Objective - Vital Signs Vital signs: Vital Signs Temp 98.2 F 03/07/17 07:00 Pulse 75 03/07/17 08:00 Resp 16 03/07/17 08:00 BP 138/61 03/07/17 07:00 Pulse Ox 96 03/07/17 07:00 Intake & Output 03/06/17 03/07/17 03/07/17 18:59 06:59 18:59 Intake Total 650 100 Output Total 5 3 Balance 645 100 -3 Weight 56.699 kg 56.699 kg Intake: Intake, IV Titration 100 Amount Cefepime 1 gm In Sodium 100 Chloride 0.9% 50 ml @ 100 mls/hr IVPB Q8HR [facility] Rx# :[id number] Oral 550 100 Output: Chest Tube Drainage 5 3 Pleural Catheter Right 5 3 Posterior Chest Drainage 0 Right Posterior Chest 0 Other: Voiding Method Toilet Toilet Toilet # Voids 3 1 1 - Exam Gen. appearance the patient is calm and comfortable , in no form of respiratory distress. distress.Head exam was generally normal. There was no scleral icterus or corneal arcus. Mucous membranes were moist.Neck was supple and without jugular venous distension, thyromegaly, or carotid bruits. Carotids were easily palpable bilaterally. There was no adenopathy. Lung sounds are diminished in the right lung base compared to the left. The pigtail catheter has been removed Breasts of the record otherwise within normal limits.Cardiac exam revealed the PMI to be normally situated and sized. The rhythm was regular and no extrasystoles were noted during several minutes of auscultation. The first and second heart sounds were normal and physiologic splitting of the second heart sound was noted. There were no murmurs, rubs, clicks, or gallops. Abdominal exam revealed normal bowel sounds. The abdomen was soft, non-tender, and without masses, organomegaly, or appreciable enlargement of the abdominal aorta. Examination of the extremities revealed easily palpable radial, femoral and pedal pulses. There was no cyanosis, clubbing or edema. Skin is within normal limits and there is no cellulitis or any wounds or ulcers. Skeletal examination is within normal limits without any injuries or deformities or arthritis . Neurologic exam is within normal and the patient has awake and alert and there is no focal neurological deficit. Psychiatric: Adequate mental status, normal affect, no psychiatric issues to be addressed - Labs CBC & Chem 7: 03/05/17 08:00 03/05/17 08:00 Labs: Microbiology - Last 24 Hours (Table) 03/01/17 12:21 Blood Culture - Final Blood No Growth after 144 hours 03/01/17 12:16 Blood Culture - Final Blood No Growth after 144 hours Assessment and Plan Plan: 1 loculated right sided pleural effusion/fluid is located in the right lung base associated with some compressive atelectasis. This is most likely a residual of previous pleural effusion that developed at the time of insertion and removal of a nephrostomy tube. A percutaneous pigtail catheter was inserted and evacuation of bloody effusion in the order of 250 mL was evacuated from the right lung. Cultures of been negative thus far. Since then, the patient has already received 2 infusions with alteplase and she'll be receiving the third today. After the second infusion there has been significant improvement in the output and worsening increased output on today's evaluation with improvement of the pleural effusion on the right. Meanwhile the patient has a very tiny right apical pneumothorax on today's chest x-ray. The patient had a total of 2 20 mL of the range after the second alteplase infusion and she has developed another 140 mL of drainage over the past 24 hours after the third alteplase infusion. 2 history of a right-sided hydropneumothorax post right sided percutaneous nephrolithotomy tube insertion and removal 3 nephrolithiasis with previous lithotripsy, double-J tube insertion, and previous nephrostomy tube insertion 4 fatty liver 5 migraine 6 hypothyroidism Recommendation: Patient is doing well today and this is on 03/07/2017, we plan to discharge the patient home today, and follow-up with Dr. Fragoso in 1-2 weeks Time with Patient: Less than 30
--- NOTE | 2017-03-07 16:36 | P.DS ---
Providers Date of admission: 03/01/17 06:52 Attending physician: Corine Singer Consults: 03/01/17 06:52 Consult Physician Routine Consulting Provider: Leo Fragoso Consult Reason/Comments: effusion,pna Do you want consulting provider notified?: Yes 03/01/17 07:07 Consult Physician Routine Consulting Provider: John Vieyra Consult Reason/Comments: known Do you want consulting provider notified?: Yes 03/01/17 11:00 Consult Physician Routine Consulting Provider: Miguel Shin Consult Reason/Comments: Loculated pleural effusion Do you want consulting provider notified?: Yes 03/01/17 12:51 Consult Physician Urgent Consulting Provider: Richard Truong Consult Reason/Comments: ultrasound guided right thoracentesis Do you want consulting provider notified?: Yes Primary care physician: Michael Lloyd [facility] Course: This 56-year-old woman with a past medical history multiple medical problems was admitted with a right-sided located pleural effusion. Possibly due to empyema was suspected and the was treated empirically with antibiotics. Cultures are negative. Chest tube was inserted. Patient was seen by science interpreter Dr. Brian Fragoso and as well as cardiothoracic team. Patient improved significantly. Chest tube will be removed and patient be discharged home in a stable condition with guarded prognosis. Of note the patient also had UTI with Enterococcus faecalis which is vancomycin sensitive features present on admission. On exam vitals stable. Cardio S1 and S2 normal. Respiratory system versus diminished in the right lower chest. Few rhonchi. Abdomen soft nontender. Nervous system no focal deficit. Patient was also seen by urology during the hospitalization. Recommended close follow-up with the multiple consultants including pulmonology urology and cardiac the surgery. Final diagnoses 1. Right-sided loculated pleural effusion possible empyema status post chest tube drainage on and take IV antibiotics improving. 2. Right hydrothorax. 3. Hyperlipidemia. 4. UTI with Enterococcus faecalis acute present on admission. 5. Hypothyroidism. 6. Depression. Patient Condition at Discharge: Fair Plan - Discharge Summary New Discharge Prescriptions: New Famotidine [Pepcid] 20 mg PO BID #30 tab traMADol HCl [Ultram] 50 mg PO Q6H PRN #20 tab PRN Reason: Pain valACYclovir HCL [Valtrex] 1,000 mg PO BID #8 tab Albuterol Inhaler [Ventolin Hfa Inhaler] 2 puff INHALATION QID #1 inhaler Amoxic-Pot Clav 875-125Mg [Augmentin 875-125] 1 tab PO Q12H #14 tablet Continue Simvastatin 20 mg PO HS PARoxetine [Paxil] 20 mg PO QAM Levothyroxine Sodium [Synthroid] 100 mcg PO DAILY Potassium Citrate [Urocit-K] 30 meq PO BID LORazepam [Ativan] 1 mg PO TID PRN #30 tab PRN Reason: Anxiety Prochlorperazine [Compazine] 10 mg PO Q6H PRN #30 tab PRN Reason: Nausea Hydrocodone/Acetaminophen [[place] 5-325] 1 tab PO Q4HR PRN PRN Reason: Pain Discontinued Ibuprofen [Motrin] 600 mg PO Q6HR PRN #20 tab PRN Reason: For pain Discharge Medication List PARoxetine [Paxil] 20 mg PO QAM 01/22/15 [History] Simvastatin 20 mg PO HS 01/22/15 [History] Levothyroxine Sodium [Synthroid] 100 mcg PO DAILY 02/01/17 [History] LORazepam [Ativan] 1 mg PO TID PRN #30 tab 02/09/17 [Rx] Potassium Citrate [Urocit-K] 30 meq PO BID 02/09/17 [History] Prochlorperazine [Compazine] 10 mg PO Q6H PRN #30 tab 02/09/17 [Rx] Hydrocodone/Acetaminophen [[place] 5-325] 1 tab PO Q4HR PRN 03/01/17 [History] Albuterol Inhaler [Ventolin Hfa Inhaler] 2 puff INHALATION QID #1 inhaler [Rx] Amoxic-Pot Clav 875-125Mg [Augmentin 875-125] 1 tab PO Q12H #14 tablet 03/07/17 [Rx] Famotidine [Pepcid] 20 mg PO BID #30 tab 03/07/17 [Rx] traMADol HCl [Ultram] 50 mg PO Q6H PRN #20 tab 03/07/17 [Rx] valACYclovir HCL [Valtrex] 1,000 mg PO BID #8 tab 03/07/17 [Rx] Follow up Appointment(s)/Referral(s): Michael Lloyd DO [Primary Care Provider] - 3 Days (office not open .patient will have to call and schedule own appt.) Frank Monge MD [STAFF PHYSICIAN] - As Needed Nirmal Lau MD [STAFF PHYSICIAN] - As Needed (as prev advised) Leo Fragoso MD [STAFF PHYSICIAN] - 03/28/17 1:30 pm Ambulatory/Diagnostic Orders: Complete Blood Count w/diff [LAB.AMB] Time Frame: 3 Days, Location: Determined By Patient Patient Instructions/Handouts: Famotidine (By mouth), Albuterol (By breathing) , Amoxicillin/Clavulanate Potassium (By mouth), Tramadol (By mouth), Valacyclovir (By mouth) Activity/Diet/Wound Care/Special Instructions: IS Q 1 H X 10 WA DIet: cardiac, yogurt between meals and Qhs Activity: llimited till f/u
== END 2017-03-07 17:05 | disposition home or self-care (01) | DRG 187 ==
LOC: EC 02:24 → 5MS5E 06:52
PROVIDERS: ADMIT Hospitalist; ATTEND Hospitalist
PROC: 0W9930Z Drainage of Right Pleural Cavity with Drainage Device, Percutaneous Approach (ICD-10-PCS; principal; 2017-03-02)
DX: J90 Pleural effusion, not elsewhere classified (principal); J94.8 Other specified pleural conditions; J98.11 Atelectasis; N39.0 Urinary tract infection, site not specified; K76.0 Fatty (change of) liver, not elsewhere classified; F32.9 Major depressive disorder, single episode, unspecified; B95.2 Enterococcus as the cause of diseases classified elsewhere; E03.9 Hypothyroidism, unspecified; E78.5 Hyperlipidemia, unspecified; E86.0 Dehydration; G43.909 Migraine, unspecified, not intractable, without status migrainosus; Z79.899 Other long term (current) drug therapy; Z87.891 Personal history of nicotine dependence; Z88.0 Allergy status to penicillin; Z88.8 Allergy status to other drugs, medicaments and biological substances; Z91.041 Radiographic dye allergy status; Z82.49 Family history of ischemic heart disease and other diseases of the circulatory system
CPT/HCPCS: 32551; 36415; 71010; 71020; 71250; 71275; 77012; 80048; 80053; 80202; 81001; 82550; 82553; 83605; 83615; 83735; 83880; 84100; 84157; 84484; 85025; 85027; 85610; 85730; 87040; 87070; 87075; 87077; 87086; 87102; 87116; 87186; 87205; 87206; 88108; 88305; 89050; 93005; 94640; 94760; 96361; 96365; 96375; 99285

== ENCOUNTER → 2017-11-04 | Outpatient (CLI) | payer BC ==
--- NOTE | 2017-11-04 10:54 | XR ---
Abdomen HISTORY: Kidney stones Frontal view of the abdomen submitted on 2 images and correlated to prior exam 02/01/2017 Multiple calcifications are scattered over the right kidney as on prior, largest measures approximate ly 6 x 3 mm. There are at least 3 additional calcifications and possibly by smaller calcifications. N o evident pneumoperitoneum or bowel obstruction. Lung bases are clear. There is mild spinal curvature . IMPRESSION: Right-sided nephrolithiasis.
== END | disposition home or self-care (01) ==
LOC: RADXRMAIN 09:19
PROVIDERS: ATTEND Urology
DX: N20.0 Calculus of kidney (principal)
CPT/HCPCS: 74018

== ENCOUNTER → 2018-06-28 | Outpatient (CLI) | payer BC ==
--- NOTE | 2018-06-28 13:58 | XR ---
Abdomen HISTORY: Pain, kidney stones Frontal view of the abdomen on 2 images correlated to prior exam 11/04/2017 There is no evident bowel obstruction or pneumoperitoneum. Retained fecal debris present throughout t he distribution of the colon overlies the kidneys. There is a crescentic calcification seen over the right kidney measuring approximately 7 to 8 mm, approximately 2 to 3 mm calcification is present imme diately adjacent, smaller calcifications in the midpole are felt likely to be stable each measuring a pproximately 2 to 3 mm. Lung bases are unremarkable as seen. Bone mineralization is stable. IMPRESSION: Right-sided nephrolithiasis.
== END | disposition home or self-care (01) ==
LOC: RADXRMAIN 10:55
PROVIDERS: ATTEND Urology
DX: N20.0 Calculus of kidney (principal)
CPT/HCPCS: 74018

== ENCOUNTER 2019-05-17 14:50 | Emergency (ER) | payer BC ==
[2019-05-17 15:44] LABS: Amorphous Sediment,Urine Occasional /hpf; Appearance,Urine Cloudy (Clear); Bilirubin,Urine Negative (Negative); Blood,Urine Negative (Negative); Color,Urine Yellow; Glucose,Urine (UA) Negative (Negative); Ketones,Urine Negative (Negative); Leukocyte Esterase,Urine Negative (Negative); Mucus,Urine Rare /hpf; Nitrite,Urine Negative (Negative); Protein,Urine Negative (Negative); RBC,Urine 1 /hpf (0-5); Specific Gravity,Urine 1.013 (1.001-1.035); Urobilinogen,Urine <2.0 mg/dL (<2.0)
[2019-05-17] MEDS ORDERED: SODIUM CHLORIDE 0.9% 1,000 ML IV STA (16:40)
[2019-05-17] MEDS ORDERED: ONDANSETRON 4 MG/2 ML VIAL IVP STA (16:41)
[2019-05-17] MEDS ORDERED: KETOROLAC 30 MG/ML 1 ML VIAL IVP STA (16:41)
--- NOTE | 2019-05-17 16:53 | ED ---
Abdominal Pain HPI - General Chief Complaint: Abdominal Pain Stated Complaint: Kidney stone Time Seen by Provider: 05/17/19 16:26 Source: patient, RN notes reviewed, old records reviewed Mode of arrival: ambulatory Limitations: no limitations - History of Present Illness Initial Comments: This is a 50-year-old female here for evaluation of episodic abdominal pain. Currently mild right-sided flank and right-sided abdominal pain. Some blood in the urine as of late but no dysuria no fevers mild nausea no vomiting. History of kidney stones history of kidney stone procedures. Symptoms feel the same has not had a kidney stone about 2 years MD Complaint: flank pain (R) -: days(s) Location: RLQ, R flank Radiation: suprapubic Migration to: suprapubic Severity: moderate Severity scale (1-10): 6 Quality: stabbing, aching Consistency: intermittent Improves With: nothing Worsens With: nothing Associated Symptoms: nausea, hematuria - Related Data Home Medications Medication Instructions Recorded Confirmed PARoxetine [Paxil] 20 mg PO QAM 01/22/15 03/01/17 Simvastatin 20 mg PO HS 01/22/15 03/01/17 Levothyroxine Sodium [Synthroid] 100 mcg PO DAILY 02/01/17 03/01/17 Potassium Citrate [Urocit-K] 30 meq PO BID 02/09/17 03/01/17 Hydrocodone/Acetaminophen [[place] 1 tab PO Q4HR PRN 03/01/17 03/01/17 5-325] Previous Rx's Medication Instructions Recorded LORazepam [Ativan] 1 mg PO TID PRN #30 tab 02/09/17 Prochlorperazine [Compazine] 10 mg PO Q6H PRN #30 tab 02/09/17 Albuterol Inhaler [Ventolin Hfa 2 puff INHALATION QID #1 inhaler 03/07/17 Inhaler] Amoxic-Pot Clav 875-125Mg 1 tab PO Q12H #14 tablet 03/07/17 [Augmentin 875-125] Famotidine [Pepcid] 20 mg PO BID #30 tab 03/07/17 traMADol HCl [Ultram] 50 mg PO Q6H PRN #20 tab 03/07/17 valACYclovir HCL [Valtrex] 1,000 mg PO BID #8 tab 03/07/17 Allergies Allergy/AdvReac Type Severity Reaction Status Date / Time amoxicillin Allergy Rash/Hives Verified 05/17/19 15:17 Iodinated Contrast Media Allergy Rash/Hives Verified 05/17/19 15:17 [Iodinated Contrast- Oral and IV Dye] iodine Allergy Rash/Hives Verified 05/17/19 15:17 atorvastatin calcium AdvReac ACHY Verified 05/17/19 15:17 [From Lipitor] MUSCLES. Review of Systems ROS Statement: Those systems with pertinent positive or pertinent negative responses have been documented in the HPI. ROS Other: All systems not noted in ROS Statement are negative. Past Medical History Past Medical History: Hyperlipidemia, Liver Disease, Respiratory Disorder, Thyroid Disorder Additional Past Medical History / Comment(s): KIDNEY STONES, FATTY LIVER, HISTORY OF MIGRAINE HEADACHES. History of Any Multi-Drug Resistant Organisms: None Reported Past Surgical History: Hysterectomy, Tonsillectomy Additional Past Surgical History / Comment(s): RIGHT OOPHORECTOMY, MULTIPLE LITHOTRIPSY'S. 02/01/2017 Nephrolitotomy w/nephrostomy tube insertion Past Anesthesia/Blood Transfusion Reactions: Motion Sickness, Postoperative Nausea & Vomiting (PONV) Past Psychological History: Depression Smoking Status: Former smoker Past Alcohol Use History: Occasional Past Drug Use History: None Reported - Past Family History Sister(s) Family Medical History: Cancer (1 sister from a brain tumor, 1 sister is in remission from breast cancer.) Additional Family Medical History / Comment(s): 2 sisters and 1 brother with history of EtOH. Brother(s) Additional Family Medical History / Comment(s): Brother had a history of depression, EtOH and drug abuse and committed suicide at a young age. Mother Family Medical History: Cancer (History of breast cancer.), Coronary Artery Disease (CAD) (Her mother underwent a coronary artery bypass grafting surgery and at age 58.) Additional Family Medical History / Comment(s): BREAST CANCER Father Family Medical History: Coronary Artery Disease (CAD) (Father at age 52.) Additional Family Medical History / Comment(s): FATHER AT THE AGE OF 52 YRS FROM A OR. HE WAS A HEAVY SMOKER. General Exam Limitations: no limitations General appearance: alert, in no apparent distress Head exam: Present: atraumatic, normocephalic, normal inspection Eye exam: Present: normal appearance, PERRL, EOMI. Absent: scleral icterus, conjunctival injection, periorbital swelling ENT exam: Present: normal exam, mucous membranes moist Neck exam: Present: normal inspection. Absent: tenderness, meningismus, lymphadenopathy Respiratory exam: Present: normal lung sounds bilaterally. Absent: respiratory distress, wheezes, rales, rhonchi, stridor Cardiovascular Exam: Present: regular rate, normal rhythm, normal heart sounds. Absent: systolic murmur, diastolic murmur, rubs, gallop, clicks GI/Abdominal exam: Present: soft, normal bowel sounds. Absent: distended, tenderness, guarding, rebound, rigid Extremities exam: Present: normal inspection, full ROM, normal capillary refill. Absent: tenderness, pedal edema, joint swelling, calf tenderness Back exam: Present: normal inspection Neurological exam: Present: alert, oriented X3, CN II-XII intact Psychiatric exam: Present: normal affect, normal mood Skin exam: Present: warm, dry, intact, normal color. Absent: rash Course Vital Signs 05/17/19 15:15 Temperature 97.9 F Pulse Rate 69 Respiratory 16 Rate Blood Pressure 144/81 O2 Sat by Pulse 99 Oximetry - Reevaluation(s) Reevaluation #1: 05/17/19 18:19 Medical records reviewed Reevaluation #2: 05/17/19 18:19 Pain symptoms are improved Medical Decision Making - Medical Decision Making 50 female to the ER for evaluation of further flank pain and right-sided pain or some abdominal pain appointment. History of kidney stones, patient will follow up with urology for further evaluation and management, pain is currently controlled no fever no sign of UTI - Lab Data Result diagrams: 05/17/19 17:14 05/17/19 17:14 Lab Results 05/17/19 05/17/19 05/17/19 Range/Units 15:30 17:14 17:14 WBC 5.3 (3.8-10.6) k/uL RBC 4.32 (3.80-5.40) m/uL Hgb 14.2 (11.4-16.0) gm/dL Hct 39.9 (34.0-46.0) % MCV 92.3 (80.0-100.0) fL MCH 32.8 (25.0-35.0) pg MCHC 35.5 (31.0-37.0) g/dL RDW 12.1 (11.5-15.5) % Plt Count 316 (150-450) k/uL Neutrophils % 53 % Lymphocytes % 34 % Monocytes % 8 % Eosinophils % 2 % Basophils % 1 % Neutrophils # 2.8 (1.3-7.7) k/uL Lymphocytes # 1.8 (1.0-4.8) k/uL Monocytes # 0.4 (0-1.0) k/uL Eosinophils # 0.1 (0-0.7) k/uL Basophils # 0.0 (0-0.2) k/uL Sodium 139 (137-145) mmol/L Potassium 3.8 (3.5-5.1) mmol/L Chloride 107 (98-107) mmol/L Carbon Dioxide 21 L (22-30) mmol/L Anion Gap 11 mmol/L BUN 18 H (7-17) mg/dL Creatinine 0.88 (0.52-1.04) mg/dL Est GFR (CKD-EPI)AfAm 84 (>60 ml/min/1.73 sqM) Est GFR (CKD-EPI)NonAf 73 (>60 ml/min/1.73 sqM) Glucose 109 H (74-99) mg/dL Calcium 10.3 H (8.4-10.2) mg/dL Phosphorus 3.3 (2.5-4.5) mg/dL Magnesium 1.9 (1.6-2.3) mg/dL Total Bilirubin 0.7 (0.2-1.3) mg/dL AST 27 (14-36) U/L ALT 28 (9-52) U/L Alkaline Phosphatase 72 (38-126) U/L Total Protein 7.4 (6.3-8.2) g/dL Albumin 4.5 (3.5-5.0) g/dL Amylase 77 (30-110) U/L Lipase 284 (23-300) U/L Urine Color Yellow Urine Appearance Cloudy H (Clear) Urine pH 8.0 (5.0-8.0) Ur Specific [place] 1.013 (1.001-1.035) Urine Protein Negative (Negative) Urine Glucose (UA) Negative (Negative) Urine Ketones Negative (Negative) Urine Blood Negative (Negative) Urine Nitrite Negative (Negative) Urine Bilirubin Negative (Negative) Urine Urobilinogen <2.0 (<2.0) mg/dL Ur Leukocyte Esterase Negative (Negative) Urine RBC 1 (0-5) /hpf Urine WBC 4 (0-5) /hpf Amorphous Sediment Occasional H (None) /hpf Urine Mucus Rare H (None) /hpf - Radiology Data Radiology results: report reviewed (X-ray KUB and ultrasound reveals a bladder negative for acute disease), image reviewed Disposition Clinical Impression: Abdominal pain, Kidney stone Disposition: HOME SELF-CARE Condition: Good Instructions (If sedation given, give patient instructions): Abdominal Pain (ED), Kidney Stones (ED) Is patient prescribed a controlled substance at d/c from ED?: No Referrals: Nirmal Lau MD [STAFF PHYSICIAN] - 1-2 days
[2019-05-17 17:37] LABS: Albumin 4.5 g/dL (3.5-5.0); Calcium 10.3 mg/dL (8.4-10.2); Phosphorus 3.3 mg/dL (2.5-4.5); Total Bilirubin 0.7 mg/dL (0.2-1.3); Total Protein 7.4 g/dL (6.3-8.2)
[2019-05-17 17:39] LABS: Basophils % (A) 1 %; Eosinophils # (A) 0.1 k/uL (0-0.7); Eosinophils % (A) 2 %; HCT 39.9 % (34.0-46.0); HGB 14.2 gm/dL (11.4-16.0); Lymphocytes # (A) 1.8 k/uL (1.0-4.8); Lymphocytes % (A) 34 %; MCH 32.8 pg (25.0-35.0); MCHC 35.5 g/dL (31.0-37.0); MCV 92.3 fL (80.0-100.0); Mean Platelet Volume 7.5; Monocytes # (A) 0.4 k/uL (0-1.0); Monocytes % (A) 8 %; Neutrophils # (A) 2.8 k/uL (1.3-7.7); Neutrophils % (A) 53 %; Platelet Count 316 k/uL (150-450); RBC 4.32 m/uL (3.80-5.40); RDW 12.1 % (11.5-15.5); WBC 5.3 k/uL (3.8-10.6)
[2019-05-17 17:44] LABS: Magnesium 1.9 mg/dL (1.6-2.3); Potassium 3.8 mmol/L (3.5-5.1)
--- NOTE | 2019-05-17 18:31 | XR ---
EXAMINATION TYPE: XR KUB 2 views DATE OF EXAM: 05/17/2019 5:34 PM CLINICAL HISTORY: Right abdominal/flank pain TECHNIQUE: 2 upright views were obtained. COMPARISON: 06/28/2018 FINDINGS: Scattered gas is seen in non-distended small bowel loops. There is a prominent volume of fe betsey material seen in non-distended colon, consistent with constipation. No pneumoperitoneum or pneumatosis. There is no visceromegaly. The lung bases are clear and the osseous structures are intact. IMPRESSION: Constipation pattern. Overall nonobstructive bowel gas pattern.
[2019-05-17 19:23] VITALS: BP 150/72; PULSE 73; RESP 18; TEMP 98.1
--- NOTE | 2019-05-17 20:04 | US ---
EXAMINATION TYPE: US renals and bladder DATE OF EXAM: 05/17/2019 COMPARISON: XR CLINICAL HISTORY: pain. Right flank and lower back pain x 1 week. Hx kidney stones. Hematuria. Lithot ripsy. EXAM MEASUREMENTS: Right Kidney: 10.1 x 4.6 x 3.8 cm Left Kidney: 9.2 x 4.5 x 5.0 cm Right Kidney: No hydronephrosis. Two hyperechoic foci with posterior shadowing seen; largest measures : 0.8 x 0.8 x 0.6. No other focal findings. Left Kidney: No myles hydronephrosis. Prominence of the upper collecting system noted. No focal findi ngs. Bladder: Appears anechoic. Hypoechoic area seen anterior bladder, possible within wall measurin.9 x 0.9 x 0.5 cm. Bilateral Jets seen: Yes IMPRESSION: 1. No acute process. 2. Two nonobstructing subcentimeter right renal calcifications.
== END 2019-05-17 19:21 | disposition home or self-care (01) ==
LOC: EC 14:50
DX: N20.0 Calculus of kidney (principal); E78.5 Hyperlipidemia, unspecified; E07.9 Disorder of thyroid, unspecified; F32.9 Major depressive disorder, single episode, unspecified; Z87.891 Personal history of nicotine dependence; Z88.0 Allergy status to penicillin; Z88.8 Allergy status to other drugs, medicaments and biological substances; Z91.041 Radiographic dye allergy status; Z91.048 Other nonmedicinal substance allergy status; Z79.890 Hormone replacement therapy; Z79.899 Other long term (current) drug therapy; Z98.890 Other specified postprocedural states
CPT/HCPCS: 36415; 80053; 82150; 83690; 83735; 84100; 85025; 81001; 74018; 76770; 99285; 96374; 96375; 96361 ×2; J2405; J1885

== ENCOUNTER → 2020-04-04 | Outpatient (CLI) | payer BC ==
--- NOTE | 2020-04-04 13:55 | XR ---
EXAMINATION TYPE: XR KUB DATE OF EXAM: 04/04/2020 12:35 PM CLINICAL HISTORY: Right-sided pain. History of kidney stones. TECHNIQUE: Supine images of the abdomen and pelvis were obtained COMPARISON: None. FINDINGS: There are redemonstrated 5 mm and 6 mm renal calculi over the right renal lower pole. Nonsp ecific bowel gas pattern. No visceromegaly. Osseous structures are intact. IMPRESSION: Redemonstrated right nephrolithiasis measuring 5 mm and 6 mm.
== END | disposition home or self-care (01) ==
LOC: RADXRMAIN 12:24
PROVIDERS: ATTEND Urology
DX: N20.0 Calculus of kidney (principal)
CPT/HCPCS: 74018

== ENCOUNTER → 2020-07-23 | Outpatient (CLI) | payer BC ==
--- NOTE | 2020-07-23 13:15 | XR ---
EXAMINATION TYPE: XR KUB DATE OF EXAM: 07/23/2020 COMPARISON: 04/04/2020 HISTORY: Pain TECHNIQUE: One view abdominal series FINDINGS: The osseous structures are intact. The bowel gas pattern is nonspecific. Left kidney: No definite calculi noted. Right kidney: There are 2 calcifications. Each which is stable in size and appearance relative to the prior exam measuring approximately 5 and 6 mm respectively. The bowel gas pattern nonspecific with extensive retained fecal debris throughout the colon. Osseous structures intact. IMPRESSION: 1. Stable right renal calculi.
== END | disposition home or self-care (01) ==
LOC: RADXRMAIN 12:52
PROVIDERS: ATTEND Urology
DX: N20.0 Calculus of kidney (principal)
CPT/HCPCS: 74018

== ENCOUNTER → 2023-02-02 | Outpatient (CLI) | payer BC ==
--- NOTE | 2023-02-02 12:27 | XR ---
EXAMINATION TYPE: XR KUB DATE OF EXAM: 02/02/2023 COMPARISON: 07/23/2020 HISTORY: Right flank pain TECHNIQUE: One view abdominal series FINDINGS: The osseous structures are intact. Hypertrophic arthropathy of the lumbosacral junction. The bowel g as pattern is nonspecific. Lung bases are clear. Right kidney: There are proximally for calcifications overlying the right kidney the largest measurin g 5.5 mm similar to prior exam. Left kidney: No suspicious calcifications. Within the pelvis no suspicious calcifications. IMPRESSION: 1. Stable right-sided nephrolithiasis the largest measuring 5.5 mm.
== END | disposition home or self-care (01) ==
LOC: RADXRMAIN 12:02
PROVIDERS: ATTEND Urology
DX: N20.0 Calculus of kidney (principal)
CPT/HCPCS: 74018

== ENCOUNTER 2024-06-27 09:12 | Day surgery (SDC) | payer BC ==
--- NOTE | 2024-06-26 14:44 | P.GSHP ---
History of Present Illness H&P Date: 06/26/24 Send 63-year-old female with a history of calcium oxalate urolithiasis. She has painful right renal stones measuring 0.5 and 0.6 cm in length. She wishes to have these removed. We discussed treatment options. Due to the fact that they are on the lower pole we will do right ureteroscopy and laser lithotripsy and lieu of shockwave lithotripsy. Risk complications alternatives have been discussed - Constitutional Constitutional: Denies chills, Denies fever - EENT Eyes: denies blurred vision, denies pain Ears, nose, mouth and throat: Denies headache, Denies sore throat - Cardiovascular Cardiovascular: Denies chest pain, Denies shortness of breath - Respiratory Respiratory: Denies cough, Denies 7 - Gastrointestinal Gastrointestinal: Denies abdominal pain, Denies diarrhea, Denies nausea, Denies vomiting - Genitourinary (Female) Genitourinary: Denies dysuria, Denies hematuria - Genitourinary (Male) Genitourinary: Denies dysuria, Denies hematuria - Musculoskeletal Musculoskeletal: Denies myalgias - Integumentary Integumentary: Denies pruritus, Denies rash - Neurological Neurological: Denies numbness, Denies weakness - Psychiatric Psychiatric: Denies anxiety, Denies depression - Endocrine Endocrine: Denies fatigue, Denies weight change Past Medical History Past Medical History: Hyperlipidemia, Liver Disease, Respiratory Disorder, Thyroid Disorder Additional Past Medical History / Comment(s): KIDNEY STONES, FATTY LIVER, HISTORY OF MIGRAINE HEADACHES. collapsed lung in past History of Any Multi-Drug Resistant Organisms: None Reported Past Surgical History: Hysterectomy, Tonsillectomy Additional Past Surgical History / Comment(s): RIGHT OOPHORECTOMY, MULTIPLE LITHOTRIPSY'S. 02/01/2017 Nephrolitotomy w/nephrostomy tube insertion Past Anesthesia/Blood Transfusion Reactions: Motion Sickness, Postoperative Nausea & Vomiting (PONV) Smoking Status: Never smoker - Past Family History Sister(s) Family Medical History: Cancer Additional Family Medical History / Comment(s): 2 sisters and 1 brother with history of EtOH. Brother(s) Additional Family Medical History / Comment(s): Brother had a history of depression, EtOH and drug abuse and committed suicide at a young age. Mother Family Medical History: Cancer, Coronary Artery Disease (CAD) Additional Family Medical History / Comment(s): BREAST CANCER Father Family Medical History: Coronary Artery Disease (CAD) Additional Family Medical History / Comment(s): FATHER AT THE AGE OF 52 YRS FROM A SD. HE WAS A HEAVY SMOKER. Medications and Allergies Home Medications Medication Instructions Recorded Confirmed Type PARoxetine [Paxil] 20 mg PO QAM 01/22/15 06/22/24 History Levothyroxine Sodium [Synthroid] 100 mcg PO DAILY 02/01/17 06/22/24 History Potassium Citrate [Urocit-K] 15 meq PO BID 02/09/17 06/22/24 History Calcium W D (Unk) 1 tab PO DAILY 06/22/24 06/22/24 History Denosumab [Prolia] 60 mg IV Q180D 06/22/24 06/22/24 History Evolocumab [Repatha Sureclick] 140 mg SQ Q14D 06/22/24 06/22/24 History Multivitamins, Thera [Multivitamin 1 tab PO DAILY 06/22/24 06/22/24 History (formulary)] Allergies Allergy/AdvReac Type Severity Reaction Status Date / Time amoxicillin Allergy Rash/Hives Verified 06/22/24 15:51 Iodinated Contrast Media Allergy Rash/Hives Verified 06/22/24 15:51 [Iodinated Contrast- Oral and IV Dye] iodine Allergy Rash/Hives Verified 06/22/24 15:51 atorvastatin calcium AdvReac ACHY Verified 06/22/24 15:51 [From Lipitor] MUSCLES. Surgical - Exam - General well developed, well nourished, no distress - Eyes normal ocular movement, no icteric - ENT no hearing loss, no congestion - Neck no masses, trachea midline - Respiratory normal respiratory effort, clear to auscultation - Abdomen Abdomen: soft, non tender, no guarding, no rigid, no rebound - Integumentary no rash, no abnormal pigmentation - Neurologic no disoriented, no combative - Psychiatric oriented to time, oriented to person, oriented to place, speech is normal, memory intact Results - Imaging Abdominal x-ray: report reviewed, image reviewed Assessment and Plan Assessment: Impression: Right renal calculi, symptomatic Recommendations: Ureteroscopy laser lithotripsy, possible stone basketing
[~2024-06-27 09:12] MED LIST changes: -DEXAMETHASONE SOD PHOSPHATE 10 MG/ML 1 ML VIAL IV ONE; -GENTAMICIN IN NACL ISO-OSM PMX 80 MG in SALINE 1 100ML.BAG IVPB ONE; -LACTATED RINGERS 1,000 ML IV SCH; +LIDOCAINE 1% (10MG/ML) FOR IV START INTRADERMA PRN; -LIDOCAINE 1% 20 ML VIAL (10MG/ML) FOR IV START INTRADERMA PRN; -MIDAZOLAM 2 MG/2 ML VIAL IV PRN; -ONDANSETRON 4 MG/2 ML VIAL IVP ONE; -SCOPOLAMINE 1.5MG/72HR PATCH TRANSDERM ONE
--- NOTE | 2024-06-27 09:38 | XR ---
EXAMINATION TYPE: XR KUB DATE OF EXAM: 06/27/2024 9:25 AM COMPARISON: 01/30/2023 CLINICAL INDICATION: Female, 63 years old with history of Right Renal Stone N20.0; TECHNIQUE: One radiographic view of the abdomen was obtained. FINDINGS: The bowel gas pattern is nonspecific without dilated loops of small or large bowel. . Fecal material and gas are demonstrated throughout the colon and rectum. There is no evidence for organome brayan or pneumoperitoneum. No acute osseous process. No abnormal calcifications are present. IMPRESSION: 1. Right renal stone not definitively visualized. 2. Nonspecific bowel gas pattern without radiographic evidence for acute process. [facility], , 06/27/2024 9:35 AM
[2024-06-27] MEDS: IV FLUID CONTINUATION 1,000 ML IV ONE (09:53)
[2024-06-27] MEDS: LACTATED RINGERS 1,000 ML IV SCH (09:53)
[2024-06-27] MEDS: ONDANSETRON 4 MG/2 ML VIAL IVP ONE (09:55)
[2024-06-27] MEDS: DEXAMETHASONE SOD PHOSPHATE 4 MG/ML 1 ML VIAL IV ONE (09:55)
[2024-06-27] MEDS ORDERED: NEOSTIGMINE 1 MG/ML 10 ML VIAL ONE (10:18)
[2024-06-27] MEDS ORDERED: GLYCOPYRROLATE 0.2 MG/ML 2 ML VIAL ONE (10:18)
[2024-06-27] MEDS ORDERED: MIDAZOLAM 2 MG/2 ML VIAL ONE (10:18)
[2024-06-27] MEDS ORDERED: LIDOCAINE 1% INJ 10MG/ML (20 ML MDV) ONE (10:18)
[2024-06-27] MEDS ORDERED: SUCCINYLCHOLINE CHLORIDE 200 MG/10 ML VIAL IV ONE (10:18)
[2024-06-27] MEDS ORDERED: ROCURONIUM 10 MG/ML (5 ML VIAL) IV ONE (10:18)
[2024-06-27] MEDS ORDERED: fentaNYL (PF) 50 MCG/ML 2 ML AMP ONE (10:18)
[2024-06-27] MEDS ORDERED: PROPOFOL 10 MG/ML 20 ML VIAL IV ONE (10:18)
[2024-06-27] MEDS: GENTAMICIN 80 MG in SODIUM CHLORIDE 0.9% 100 ML IVPB PRN (10:24)
[2024-06-27] MEDS: IOPAMIDOL-370 100ML BTL MISCELLANE ONE (11:42)
--- NOTE | 2024-06-27 12:00 | P.OP ---
Date of Procedure: 06/27/24 Preoperative Diagnosis: Right renal calculi with colic Postoperative Diagnosis: Same Procedure(s) Performed: Cystoscopy, right ureteroscopy with laser lithotripsy, infundibulotomy Anesthesia: JAYLA Surgeon: Nirmal Lau Estimated Blood Loss (ml): 25 Pathology: none sent Condition: stable Disposition: PACU Indications for Procedure: Patient is 63. She has active calcium oxalate urolithiasis. She has 2 right renal stones 5 and 6 mm that she wishes removed she come in for ureteroscopy and laser lithotripsy. Description of Procedure: Brought to the operating suite. Given a general anesthetic. Cystoscopy Foroblique lens and 22 [place] sheath identifies a normal urethra. Bladder avitia unremarkable. Ureteral orifice is identified and intubated with an 035 wire passed up into the kidney. Over the wire is passed a 11-13 [place] reentry sheath. The inner sheath and wire removed. I passed a flexible ureteroscope up into the kidney. The patient has multiple tiny calyces and minor calyces. Ventrally identify the stones in the lower pole calyx. Have to do infundibulotomy's with a laser to expose the stones in the minor calyces. I then used the 200 m laser probe to break up the stones. An intraoperative nephrogram to make sure there are no obvious remaining stones. There is a tiny calcification that I cannot identify and therefore I will leave that calcification. I do pull out ureteroscopy and there is no significant edema therefore a stent will not be placed. The bladder was drained the patient was waken returned to cover in good condition. She tolerated the procedure well and will be discharged home upon recovery.
[2024-06-27 12:12] VITALS: TEMP 97
--- NOTE | 2024-06-27 12:29 | FL ---
EXAMINATION TYPE: FL urography retrograde DATE OF EXAM: 06/27/2024 12:15 PM COMPARISON: Pre Operative Images if available both CT/MRI or plain film CLINICAL INDICATION: Female, 63 years old with history of CYSTOSCOPY LITHO RT RENAL STONE; TECHNIQUE: FL urography retrograde, multiple fluoroscopic images provided for procedure. Total fluoroscopy time: 53 minutes Total submitted images to PACS: 8 DAP: [id number] mGym2 Gycm2 uGym2 cGycm2 or equivalent. FINDINGS: Fluoroscopic images taken for renal stone. No evidence of pneumoperitoneum. Multilevel degeneration changes of the spine. IMPRESSION: 1. No evidence for intraoperative complication. 2. Please see the operative/procedural note for further details. [facility], , 06/27/2024 12:27 PM
[2024-06-27] MEDS: HYDROmorphone 0.5 MG/0.5 ML SYRINGE IVP PRN (12:45)
[2024-06-27] MEDS: KETOROLAC 15 MG/ML 1 ML VIAL IVP STA (13:29)
[2024-06-27] MEDS: METOCLOPRAMIDE 5 MG/ML 2 ML VIAL IVP PRN (14:58)
[2024-06-27 16:27] VITALS: BP 147/76; PULSE 94; RESP 14
== END 2024-06-27 17:08 | disposition home or self-care (01) ==
LOC: OR 09:12
PROVIDERS: ATTEND Urology
DX: N20.0 Calculus of kidney (principal); E78.5 Hyperlipidemia, unspecified; K76.0 Fatty (change of) liver, not elsewhere classified; E07.9 Disorder of thyroid, unspecified; F32.A Depression, unspecified; Z87.442 Personal history of urinary calculi; Z90.710 Acquired absence of both cervix and uterus; Z90.89 Acquired absence of other organs; Z90.721 Acquired absence of ovaries, unilateral; Z79.890 Hormone replacement therapy; Z79.899 Other long term (current) drug therapy; Z88.1 Allergy status to other antibiotic agents; Z88.8 Allergy status to other drugs, medicaments and biological substances; Z91.041 Radiographic dye allergy status
CPT/HCPCS: 74420; 74018; 52353; C1769 ×2; J2250; J0330; J1100; J2710; J2765; J2405; J2003; J3010; J1580; J1885; J2704; J1171; Q9967; J1596